=== PATIENT | female | born 1960 | race Caucasian/White ===

== ENCOUNTER 2017-09-22 22:04 | Emergency (ER) | payer OTHER ==
[2017-09-22] MEDS ORDERED: ONDANSETRON 4 MG/2 ML VIAL IVP STA (23:05)
[2017-09-22] MEDS ORDERED: SODIUM CHLORIDE 0.9% 1,000 ML IV ONE (23:05)
[2017-09-22] MEDS ORDERED: DEXAMETHASONE 10 MG/ML VIAL IVP STA (23:06)
[2017-09-22] MEDS ORDERED: HYDROmorphone 0.5 MG/0.5 ML SYRINGE IVP STA (23:06)
--- NOTE | 2017-09-22 23:09 | ED Physician Documentation ---
History of Present Illness - Stated complaint Stated Complaint: HEAD PAIN - Chief complaint Chief Complaint: General - History obtained from History obtained from: Patient - History of Present Illness Timing: Yesterday - Additonal information Additional information: 57-year-old female with a history of Nicole-Danlos syndrome and cranial nerve entrapment has stopped her Zyrtec 2 days ago and she is now begun to develop facial pain. She has stopped the Zyrtec as she is getting ready to go see an seed collector at the [facility]. She feels the increase in her pain syndrome is related to stopping her Zyrtec.She has also noted some cramping in her legs. Review of Systems Constitutional: denies: Fever Eyes: denies: Decreased vision Ears: denies: Ear pain Nose: reports: Sinus pressure / pain. denies: Congestion Throat: denies: Sore throat Cardiac: denies: Chest pain / pressure, Palpitations Respiratory: denies: Dyspnea, Cough GI: reports: Nausea. 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, Breast reduction - Present Medications Home Medications: Ambulatory Orders Medication Instructions Recorded Confirmed Estradiol [Vivelle-Dot] 1 each TD DAILY 10/28/13 09/19/16 Sertraline HCl [Zoloft] 100 mg PO DAILY 10/28/13 09/19/16 Zolpidem [Ambien] 5 mg PO HS 10/28/13 09/19/16 Metoprolol Succinate [Toprol Xl] 50 mg PO DAILY 12/12/13 09/19/16 Alprazolam [Alprazolam Odt] 1 mg PO DAILY 10/19/14 10/19/14 Ondansetron Odt [Zofran] 4 mg TL Q6H PRN #10 tablet 10/19/14 09/19/16 ALPRAZolam [Xanax] 2 mg ORAL DAILY 09/19/16 09/19/16 Knee Scooter 1 unit TD ONCE #1 09/19/16 - Allergies Allergies/Adverse Reactions: Allergies Allergy/AdvReac Type Severity Reaction Status Date / Time adhesive Allergy Intermediate Rash Verified 09/19/16 18:05 lorazepam [From Ativan] Allergy jittery Verified 09/19/16 18:05 aripiprazole [From Abilify] AdvReac Severe Anxiety Verified 09/19/16 18:05 cimetidine [From Tagamet] AdvReac Severe Anxiety Verified 09/19/16 18:05 cimetidine HCl * AdvReac Severe Anxiety Verified 09/19/16 18:05 [From Tagamet] diphenhydramine HCl * AdvReac Severe Anxiety Verified 09/19/16 18:05 [From Benadryl] trazodone AdvReac Severe Migraine Verified 09/19/16 18:05 Headache morphine sulfate * AdvReac Nausea Verified 09/19/16 18:05 [From Mari] artificial sweetener AdvReac Intermediate mouth sores Uncoded 09/19/16 18:05 - Social History Does the pt smoke?: No Smoking Status: Never smoker Does the pt drink ETOH?: No Does the pt have substance abuse?: No - POLST Patient has POLST: No PD ED PE NORMAL - Vitals Vital signs reviewed: Yes (Tachycardic and hypertensive) - General General: No acute distress, Well developed/nourished - HEENT HEENT: Atraumatic, PERRL, EOMI, Ears normal, Other (dry mucous membranes ) - Neck Neck: Supple, no meningeal sign, No bony TTP - Cardiac Cardiac: No murmur, Other (tachy) - Respiratory Respiratory: No respiratory distress, Clear bilaterally - Abdomen Abdomen: Soft, Non tender - Derm Derm: Normal color, Warm and dry, No rash - Extremities Extremities: No deformity, No edema - Neuro Neuro: No motor deficit, No sensory deficit - Psych Psych: Normal mood, Normal affect Results - Vitals Vitals: Vital Signs - 24 hr 09/22/17 09/23/17 22:09 00:15 Temperature 36 C L 36.8 C Heart Rate 116 H 81 Respiratory 17 16 Rate Blood Pressure 156/96 H 125/77 O2 Saturation 97 99 Oxygen O2 Source [] Room air O2 Source [] Room air O2 Source Room air - Labs Labs: Laboratory Tests 09/22/17 09/22/17 23:30 23:30 WBC 13.5 H RBC 4.22 Hgb 13.4 Hct 38.0 MCV 90.2 MCH 31.9 H MCHC 35.3 RDW 12.6 Plt Count 252 MPV 9.5 Neut # Not Reportable Lymph # Not Reportable Lyman # Not Reportable Eos # Not Reportable Baso # Not Reportable Absolute Nucleated RBC Not Reportable Total Counted 100 Band Neuts % (Manual) 0 Nucleated RBC % Not Reportable Neutrophils # (Manual) 6.5 Lymphocytes # (Manual) 5.7 H Monocytes # (Manual) 1.1 H Eosinophils # (Manual) 0.3 Differential Comment MANUAL DIFFERENTIAL WBC Morphology 1+ SMUDGE CELLS Platelet Estimate NORMAL (130-450,000) RBC Morph Micro Appear NORMAL APPEARANCE Sodium 137 Potassium 3.5 Chloride 102 Carbon Dioxide 24 Anion Gap 11.0 BUN 16 Creatinine 0.8 Estimated GFR (MDRD) 74 L Glucose 101 H Calcium 9.3 Total Bilirubin 0.2 AST 27 ALT 20 Alkaline Phosphatase 62 Total Protein 7.0 Albumin 3.7 Globulin 3.3 Albumin/Globulin Ratio 1.1 Lipase 29 Procedures - IVC sono (time) 2229 Bedside IVC sono: IVC measures (cm) (1.24), IVC collapsed c insp (cm) (complete) PD MEDICAL DECISION MAKING - ED course Complexity details: reviewed old records, reviewed results, re-evaluated patient , considered differential, d/w patient ED course: 57-year-old female with a history of Nicole-Danlos syndrome and cranial entrapment has developed increased symptoms this evening. These are giving her more pain and she is comfortable with and she does not have pain medication. She is not had pain medication for about 2 weeks. She is preparing to go see a seed collector at the [facility] and they have taken her off of her Zyrtec. She feels that the symptoms that she is having are related to discontinuation of this medication. I do not see evidence of acute infection associated with the sinuses or the ears. She does appear mildly dehydrated and I have offered palliative treatment for her. To include the use of dexamethasone as a single dose as this should substitute for the Zyrtec and not interfere with the scratch testing. Departure - Departure Disposition: 01 Home, Self Care Clinical Impression: Cranial nerve dysfunction, Dehydration Condition: Stable Instructions: ED Dehydration Follow-Up: Your, doctor as planned [Other]
[2017-09-22] MEDS ORDERED: ONDANSETRON 4 MG/2 ML VIAL ONE (23:34)
[2017-09-22] MEDS ORDERED: HYDROmorphone 1 MG/ML SYRINGE ONE (23:34)
[2017-09-22] MEDS ORDERED: DEXAMETHASONE 10 MG/ML VIAL ONE (23:35)
[2017-09-22] MEDS ORDERED: DEXTROSE 5% 1,000 ML IV SCH (23:45)
[2017-09-22 23:47] LABS: HGB - HEMOGLOBIN 13.4 g/dL (12.0-16.0); MEAN CORPUSCULAR HEMOGLOBIN 31.9 pg (27.0-31.0); MEAN CORPUSCULAR HGB CONC 35.3 g/dL (32.0-36.0); MEAN CORPUSCULAR VOLUME 90.2 fL (81.0-99.0); MEAN PLATELET VOLUME 9.5 fL (7.9-10.8); RED BLOOD COUNT 4.22 10^6/uL (4.20-5.40); RED CELL DISTRIBUTION WIDTH 12.6 % (12.0-15.0); UNCORRECTED WHITE BLOOD COUNT 13.5 x10^3/uL; WHITE BLOOD COUNT 13.5 x10^3/uL (4.8-10.8)
[2017-09-22 23:50] LABS: BAND NEUTROPHILS % (MANUAL) 0 %
[2017-09-22 23:57] LABS: ALBUMIN/GLOBULIN RATIO 1.1 (1.0-2.2); BILIRUBIN,TOTAL 0.2 mg/dL (0.2-1.0); CALCIUM 9.3 mg/dL (8.5-10.3); CREATININE 0.8 mg/dL (0.4-1.0); POTASSIUM 3.5 mmol/L (3.5-5.0)
[2017-09-23 00:07] LABS: EOSINOPHILS % (MANUAL) 2 %; LYMPHOCYTES % (MANUAL) 42 %; NEUTROPHILS % (MANUAL) 48 %; NP AUTO DIFFERENTIAL? YES; NP MAN DIFFERENTIAL? NO; PLATELET ESTIMATE, MANUAL NORMAL (130-450,000) (NORMAL); TOTAL CELLS COUNTED 100; WBC MORPHOLOGY (MULTIPLE) 1+ SMUDGE CELLS (NORMAL)
[2017-09-23 00:19] VITALS: BP 125/77
[2017-09-23] MEDS ORDERED: HYDROcod/ACET 5/325 Prepack 6 PO ONE ×2 (01:33→02:00)
== END 2017-09-23 01:13 | disposition home or self-care (01) ==
LOC: ED 22:04
DX: G58.8 Other specified mononeuropathies (principal); E86.0 Dehydration; Q79.6 Ehlers-Danlos syndromes; Z87.442 Personal history of urinary calculi
CPT/HCPCS: 36415; 80053; 83690; 85025; 99283; 99284; J1170

== ENCOUNTER 2017-10-13 17:27 | Emergency (ER) | payer OTHER ==
[2017-10-13] MEDS ORDERED: ALPRAZolam 0.25 MG TABLET PO STA (17:54)
--- NOTE | 2017-10-13 17:56 | ED Physician Documentation ---
History of Present Illness - Stated complaint Stated Complaint: RT SIDE FACIAL PX - Chief complaint Chief Complaint: General - History obtained from History obtained from: Patient - History of Present Illness Timing: Other (She presents driven by family but alone in the room. 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 She reportedly has a history of glossopharyngeal nerve entrapment and Nicole Danlos syndrome and has chronic pain. From what I am able to ascertain as she recently switched doctors because she was kicked out of the practice for being routinely late to her appointments. 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, 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, Breast reduction - Present Medications Home Medications: Ambulatory Orders Medication Instructions Recorded Confirmed Estradiol [Vivelle-Dot] 1 each TD DAILY 10/28/13 09/19/16 Sertraline HCl [Zoloft] 100 mg PO DAILY 10/28/13 10/13/17 Zolpidem [Ambien] 5 mg PO HS 10/28/13 10/13/17 Metoprolol Succinate [Toprol Xl] 50 mg PO DAILY 12/12/13 10/13/17 Alprazolam [Alprazolam Odt] 1 mg PO DAILY 10/19/14 10/13/17 Ondansetron Odt [Zofran] 4 mg TL Q6H PRN #10 tablet 10/19/14 10/13/17 ALPRAZolam [Xanax] 2 mg ORAL DAILY 09/19/16 10/13/17 Alprazolam [Alprazolam Xr] 1 mg PO QPM #10 tab.er.24h 10/13/17 Alprazolam [Alprazolam Xr] 2 mg PO DAILY #10 tab.er.24h 10/13/17 - Allergies Allergies/Adverse Reactions: Allergies Allergy/AdvReac Type Severity Reaction Status Date / Time adhesive Allergy Intermediate Rash Verified 10/13/17 18:32 lorazepam [From Ativan] Allergy jittery Verified 10/13/17 18:32 aripiprazole [From Abilify] AdvReac Severe Anxiety Verified 10/13/17 18:32 cimetidine [From Tagamet] AdvReac Severe Anxiety Verified 10/13/17 18:32 cimetidine HCl * AdvReac Severe Anxiety Verified 10/13/17 18:32 [From Tagamet] diphenhydramine HCl * AdvReac Severe Anxiety Verified 10/13/17 18:32 [From Benadryl] trazodone AdvReac Severe Migraine Verified 10/13/17 18:32 Headache morphine sulfate * AdvReac Nausea Verified 10/13/17 18:32 [From Mari] artificial sweetener AdvReac Intermediate mouth sores Uncoded 10/13/17 18:32 - Social History Does the pt smoke?: No Smoking Status: Never smoker Does the pt drink ETOH?: No Does the pt have substance abuse?: No - POLST Patient has POLST: No PD ED PE NORMAL - Vitals Vital signs reviewed: Yes - General General: Other (She is a somewhat aggressive and uncooperative historian with tangential history. She has dilated pupils and she is shaky and sweaty.) - HEENT HEENT: PERRL, EOMI - Neck Neck: Supple, no meningeal sign, No bony TTP - Cardiac Cardiac: RRR, No murmur - Respiratory Respiratory: No respiratory distress, Clear bilaterally - Abdomen Abdomen: Non tender - Neuro Neuro: Alert and oriented X 3, Normal speech Eye Opening: Spontaneous Motor: Obeys Commands Verbal: Oriented GCS Score: 15 Results - Vitals Vitals: Vital Signs - 24 hr 10/13/17 10/13/17 10/13/17 17:34 18:04 18:39 Temperature 36.5 C 36.1 C L Heart Rate 88 86 89 Respiratory 22 16 20 Rate Blood Pressure 198/94 H 171/100 H 140/87 H O2 Saturation 100 99 96 Oxygen O2 Source [] Room air O2 Source [] Room air O2 Source Nasal cannula - EKG (time done) 1742 Rate: Rate (enter#) (101) Rhythm: Sinus tachycardia [place]: LAD QRS: Low voltage Ischemia: Normal ST segments PD MEDICAL DECISION MAKING - ED course ED course: 57-year-old woman appears to be undergoing benzodiazepine withdrawal because she abruptly ceased taking alprazolam. After the administration of a milligram of alprazolam here she was much more of a normal historian and feeling much better. Advised to follow-up with her physician for further refills or a taper process. Departure - Departure Disposition: 01 Home, Self Care Clinical Impression: Benzodiazepine withdrawal Qualifiers: Complication of substance-induced condition: uncomplicated Qualified Code(s): F13.230 - Sedative, hypnotic or anxiolytic dependence with withdrawal, uncomplicated Condition: Good Record reviewed to determine appropriate education?: Yes Instructions: ED Withdrawal Benzodiazepine Prescriptions: Alprazolam [Alprazolam Xr] 1 mg PO QPM #10 tab.er.24h Alprazolam [Alprazolam Xr] 2 mg PO DAILY #10 tab.er.24h Comments: Follow-up with your doctor, discuss either continuation of your alprazolam or a tapering process as opposed to stopping it suddenly. Your blood pressure was elevated today on check into the emergency department. This does not mean that you have hypertension, it is a common phenomenon to come to the emergency department and have elevated blood pressure. I recommend that you see your primary care physician within the week to have it rechecked when you are feeling better. Do not drink or drive while taking narcotic pain medication. Note that many narcotic pain relievers also contain Tylenol/acetaminophen. Please ensure that your total dose of acetaminophen from all sources does not exceed 3 g (3000 mg) per day. You may get constipated while on this medication. Take a stool softener such as Colace twice a day while you are on it. Also add an [id number] laxative such as senna or MiraLAX on any day that you do not have a bowel movement. If you received a narcotic pain medication or sedative while in the emergency department, do not drive for the next 24 hours.
[2017-10-13] MEDS ORDERED: ALPRAZolam 0.25 MG TABLET PO ONE (18:03)
[2017-10-13 18:40] VITALS: BP 140/87
[2017-10-13] MEDS ORDERED: diphenhydrAMINE 25 MG CAPSULE PO ONE (20:20)
== END 2017-10-13 19:17 | disposition home or self-care (01) ==
LOC: ED 17:27
DX: F13.230 Sedative, hypnotic or anxiolytic dependence with withdrawal, uncomplicated (principal); Q79.6 Ehlers-Danlos syndromes; G89.29 Other chronic pain; R03.0 Elevated blood-pressure reading, without diagnosis of hypertension
CPT/HCPCS: 93005; 99283; A9270

== ENCOUNTER 2018-06-16 15:32 | Outpatient (CLI) | payer OTHER ==
--- NOTE | 2018-06-16 16:06 | XRAY Report ---
Procedure Date: 06/16/2018 Accession Number: [id number] / [id number] Procedure: XR - Foot 3 View LT CPT Code: FULL RESULT: EXAM: Foot 3 View LT DATE: 06/16/2018 3:58 PM CLINICAL HISTORY: PAIN L FOOT COMPARISON: None. TECHNIQUE: 3 views. FINDINGS: Bones: Normal. No fractures or bone lesions. Joints: Normal. No subluxations. Soft Tissues: Normal. No soft tissue swelling. IMPRESSION: Normal foot radiography. [facility]
== END 2018-06-16 15:33 | disposition home or self-care (01) ==
LOC: DI 15:32
PROVIDERS: ATTEND Internal Medicine
DX: M79.672 Pain in left foot (principal)

== ENCOUNTER 2019-03-21 17:09 | Emergency (ER) | payer OTHER ==
[2019-03-21 17:18] VITALS: BP 149/86
[2019-03-21] MEDS ORDERED: HYDROcod/ACETAM 5/325 MG TABLET PO STA (17:37)
[2019-03-21] MEDS ORDERED: AMOX/CLAV 875 MG/125 MG TABLET PO STA (17:37)
--- NOTE | 2019-03-21 17:40 | ED Physician Documentation ---
PD HPI HEENT - Stated complaint Stated Complaint: MOUTH PX/CONGESTION - Chief complaint Chief Complaint: Heent - History obtained from History obtained from: Patient - History of Present Illness Timing - onset: Other (She had 2 molars pulled from the left mandible about 5 days ago and has had increased pain over the last couple of days. With mild facial swelling. No fevers. She also complains of nasal congestion and a hoarse voice. No cough. 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, 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, Breast reduction - Present Medications Home Medications: Ambulatory Orders Medication Instructions Recorded Confirmed Estradiol [Vivelle-Dot] 1 each TD DAILY 10/28/13 09/19/16 Sertraline HCl [Zoloft] 100 mg PO DAILY 10/28/13 10/13/17 Zolpidem [Ambien] 5 mg PO HS 10/28/13 10/13/17 Metoprolol Succinate [Toprol Xl] 50 mg PO DAILY 12/12/13 10/13/17 Alprazolam [Alprazolam Odt] 1 mg PO DAILY 10/19/14 10/13/17 Ondansetron Odt [Zofran] 4 mg TL Q6H PRN #10 tablet 10/19/14 10/13/17 ALPRAZolam [Xanax] 2 mg ORAL DAILY 09/19/16 10/13/17 Alprazolam [Alprazolam Xr] 1 mg PO QPM #10 tab.er.24h 10/13/17 Alprazolam [Alprazolam Xr] 2 mg PO DAILY #10 tab.er.24h 10/13/17 Amox/Clav 875/125 [Augmentin] 1 each PO Q12H #20 tablet 03/21/19 Hydrocodone/Acetaminophen 1 - 2 each PO Q6H PRN #14 tablet 03/21/19 [Hydrocodon-Acetaminophen 5-325] - Allergies Allergies/Adverse Reactions: Allergies Allergy/AdvReac Type Severity Reaction Status Date / Time adhesive Allergy Intermediate Rash Verified 03/21/19 17:18 lorazepam [From Ativan] Allergy jittery Verified 03/21/19 17:18 aripiprazole [From Abilify] AdvReac Severe Anxiety Verified 03/21/19 17:18 cimetidine [From Tagamet] AdvReac Severe Anxiety Verified 03/21/19 17:18 cimetidine HCl * AdvReac Severe Anxiety Verified 03/21/19 17:18 [From Tagamet] diphenhydramine HCl * AdvReac Severe Anxiety Verified 03/21/19 17:18 [From Benadryl] trazodone AdvReac Severe Migraine Verified 03/21/19 17:18 Headache morphine sulfate * AdvReac Nausea Verified 03/21/19 17:18 [From Mari] artificial sweetener AdvReac Intermediate mouth sores Uncoded 10/13/17 18:32 - Social History Does the pt smoke?: No Smoking Status: Never smoker Does the pt drink ETOH?: No Does the pt have substance abuse?: No - Immunizations Immunizations are current?: Yes - POLST Patient has POLST: No PD ED PE NORMAL - Vitals Vital signs reviewed: Yes - General General: Alert and oriented X 3, No acute distress - HEENT HEENT: Pharynx benign, Other (She has dry socket on the left mandible, very mild overlying facial swelling. No sublingual edema or trismus.) - Neck Neck: Supple, no meningeal sign, No bony TTP - Neuro Neuro: Alert and oriented X 3, Normal speech Results - Vitals Vitals: Vital Signs - 24 hr 03/21/19 17:14 Temperature 36.5 C Heart Rate 102 H Respiratory 20 Rate Blood Pressure 149/86 H O2 Saturation 98 Oxygen O2 Source [With Activity] Room air O2 Source [Without Activity] Room air O2 Source Room air Departure - Departure Disposition: 01 Home, Self Care Clinical Impression: Dry socket Condition: Good Record reviewed to determine appropriate education?: Yes Instructions: ED Socket Dry Prescriptions: Amox/Clav 875/125 [Augmentin] 1 each PO Q12H #20 tablet Hydrocodone/Acetaminophen [Hydrocodon-Acetaminophen 5-325] 1 - 2 each PO Q6H PRN #14 tablet PRN Reason: pain Comments: Follow-up with a dentist locally tomorrow for further evaluation and treatment, also your primary care for any other issues.
== END 2019-03-21 17:53 | disposition home or self-care (01) ==
LOC: ED 17:09
DX: M27.3 Alveolitis of jaws (principal)
CPT/HCPCS: 99283; A9270

== ENCOUNTER 2019-05-06 22:29 | Emergency (ER) | payer OTHER ==
--- NOTE | 2019-05-06 23:01 | XRAY Report ---
Reason: Elevated BP, Dizziness Procedure Date: 05/06/2019 Accession Number: [id number] / [id number] Procedure: XR - Chest 1 View X-Ray CPT Code: 49573 FULL RESULT: EXAM: CHEST RADIOGRAPHY EXAM DATE: 05/06/2019 10:55 PM. CLINICAL HISTORY: Elevated BP, Dizziness. COMPARISON: CHEST 2 VIEW PA/LAT 02/03/2016 7:44 PM. TECHNIQUE: 1 view. FINDINGS: Lungs/Pleura: No focal opacities evident. No pleural effusion. No pneumothorax. Mediastinum: Within exam limitations, the cardiomediastinal contour is normal. Other: None. IMPRESSION: Normal single view chest. RAD[facility]
[2019-05-06 23:03] LABS: BASOPHILS # (AUTO) 0.1 10^3/uL (0.0-0.1); BASOPHILS % (AUTO) 0.9 %; EOSINOPHILS # (AUTO) 0.4 10^3/uL (0.0-0.7); EOSINOPHILS % (AUTO) 2.7 %; HGB - HEMOGLOBIN 13.9 g/dL (12.0-16.0); LYMPHOCYTES # (AUTO) 4.9 10^3/uL (1.5-3.5); MEAN CORPUSCULAR HEMOGLOBIN 29.6 pg (27.0-31.0); MEAN CORPUSCULAR HGB CONC 33.7 g/dL (32.0-36.0); MEAN PLATELET VOLUME 10.5 fL (7.9-10.8); MONOCYTES % (AUTO) 7.1 %; NEUTROPHILS % (AUTO) 55.3 %; PLT - PLATELET COUNT 320 10^3/uL (130-450); RED BLOOD COUNT 4.71 10^6/uL (4.20-5.40); RED CELL DISTRIBUTION WIDTH 14.4 % (12.0-15.0); WHITE BLOOD COUNT 14.4 x10^3/uL (4.8-10.8)
[2019-05-06 23:18] LABS: ALBUMIN 3.9 g/dL (3.2-5.5); ALBUMIN/GLOBULIN RATIO 0.9 (1.0-2.2); CALCIUM 9.9 mg/dL (8.5-10.3); CREATININE 0.9 mg/dL (0.4-1.0); TOTAL PROTEIN 8.2 g/dL (6.7-8.2)
--- NOTE | 2019-05-07 00:55 | ED Physician Documentation ---
History of Present Illness - Stated complaint Stated Complaint: HIGH BP/DIZZY - Chief complaint Chief Complaint: Cardiac - History obtained from History obtained from: Patient - History of Present Illness Timing: Other (multiple c/o over various time frames) Pain level now: 5 (headache) - Additonal information Additional information: chief complaint is high blood pressure x 2 days with generalized headache. she has had hair loss and is on minocycline for this, says she thinks this is the wrong medication and she wonders if this is contributing to her high blood pressure. she thinks she has a fungal infection causing hair loss. she had recent dental extraction and also is concerned this might be causing her high blood pressure as well as right-sided facial pain. she feels her lymph nodes (a single lymph node) is swollen right side if neck, concerned this further indicates some sort of infection. she says she is having headache uncontrolled by OTC medication (although she days she was told she cannot take NSAIDs), and since this is [place], no one wants to prescribe anything (per patient). Review of Systems Constitutional: reports: Reviewed and negative Eyes: reports: Reviewed and negative Ears: reports: Reviewed and negative Throat: reports: Oral lesions / sores (pain near recent dental extraction) Cardiac: reports: Reviewed and negative Respiratory: reports: Reviewed and negative GI: reports: Reviewed and negative Neurologic: reports: Headache. 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: Hysterectomy, Oophrectomy, Breast reduction - Present Medications Home Medications: Ambulatory Orders Medication Instructions Recorded Confirmed Estradiol [Vivelle-Dot] 1 each TD DAILY 10/28/13 05/06/19 Zolpidem [Ambien] 5 mg PO HS 10/28/13 05/06/19 Metoprolol Succinate [Toprol Xl] 50 mg PO DAILY 12/12/13 05/06/19 Ondansetron Odt [Zofran] 4 mg TL Q6H PRN #10 tablet 10/19/14 05/06/19 Alprazolam [Alprazolam Xr] 2 mg PO DAILY #10 tab.er.24h 10/13/17 05/06/19 Dextroamphetamine/Amphetamine 20 mg PO BID 05/06/19 05/06/19 [Adderall 20 mg Tablet] Esomeprazole Magnesium [Nexium] 20 mg PO 05/06/19 Fluoxetine HCl [Prozac] 20 mg PO 05/06/19 05/06/19 Irbesartan 75 mg PO DAILY 05/06/19 05/06/19 Ketotifen Fumarate [Zaditor] 5 ml OP DAILY 05/06/19 05/06/19 Lactobacillus Acidophilus 1 each PO DAILY 05/06/19 05/06/19 [Probiotic Acidophilus] Loratadine [Claritin] 10 mg PO DAILY 05/06/19 05/06/19 Minocycline HCl 50 mg PO DAILY 05/06/19 05/06/19 hydrALAZINE [Apresoline] 10 mg PO DAILY 05/06/19 05/06/19 - Allergies Allergies/Adverse Reactions: Allergies Allergy/AdvReac Type Severity Reaction Status Date / Time adhesive Allergy Intermediate Rash Verified 05/06/19 22:37 lorazepam [From Ativan] Allergy jittery Verified 05/06/19 22:37 aripiprazole [From Abilify] AdvReac Severe Anxiety Verified 05/06/19 22:37 cimetidine [From Tagamet] AdvReac Severe Anxiety Verified 05/06/19 22:37 cimetidine HCl * AdvReac Severe Anxiety Verified 05/06/19 22:37 [From Tagamet] diphenhydramine HCl * AdvReac Severe Anxiety Verified 05/06/19 22:37 [From Benadryl] trazodone AdvReac Severe Migraine Verified 05/06/19 22:37 Headache morphine sulfate * AdvReac Nausea Verified 05/06/19 22:37 [From Mari] artificial sweetener AdvReac Intermediate mouth sores Uncoded 05/06/19 22:37 - Social History Does the pt smoke?: No Smoking Status: Never smoker Does the pt drink ETOH?: No Does the pt have substance abuse?: No - Immunizations Immunizations are current?: Yes - POLST Patient has POLST: No PD ED PE NORMAL - Vitals Vital signs reviewed: Yes - General General: Alert and oriented X 3, No acute distress, Well developed/nourished - HEENT HEENT: PERRL, EOMI, Other (alopecia; no facial swelling or erythema. right maxillary tooth extraction site is c/d/I without swelling, erythema, fluctuance, or tenderness) - Neck Neck: Supple, no meningeal sign, No adenopathy (I do not appreciate any lymphadenopathy; patient repeatedly guides my hand to a solitary node which is right posterior chain and is small, soft, nontender (normal sized-lymph node)) - Cardiac Cardiac: RRR, No murmur, No gallop, No rub - Respiratory Respiratory: No respiratory distress, Clear bilaterally - Derm Derm: Normal color, Warm and dry - Neuro Neuro: Alert and oriented X 3, art framing manager 2-12 intact, No motor deficit, No sensory deficit, Normal speech Eye Opening: Spontaneous Motor: Obeys Commands Verbal: Oriented GCS Score: 15 Results - Vitals Vitals: Oxygen O2 Source [] Room air O2 Source [] Room air O2 Source Room air - EKG (time done) No standard instances Rate: Rate (enter#) (114), Tachy Rhythm: NSR Dewart: LAD Intervals: Normal NE QRS: LVH Ischemia: Normal ST segments - Labs Labs: Laboratory Tests 05/06/19 05/06/19 05/06/19 22:55 22:55 22:55 WBC 14.4 H RBC 4.71 Hgb 13.9 Hct 41.4 MCV 88.0 MCH 29.6 MCHC 33.7 RDW 14.4 Plt Count 320 MPV 10.5 Neut # (Auto) 8.0 H Lymph # (Auto) 4.[address] [place] # (Auto) 1.0 Eos # (Auto) 0.4 Baso # (Auto) 0.1 Absolute Nucleated RBC 0.02 Nucleated RBC % 0.1 Sodium 138 Potassium 3.4 L Chloride 104 Carbon Dioxide 19 L Anion Gap 15.0 H BUN 14 Creatinine 0.9 Estimated GFR (MDRD) 64 L Glucose 167 H Calcium 9.9 Total Bilirubin 1.0 AST 53 H ALT 40 Alkaline Phosphatase 67 Troponin I < 0.04 Total Protein 8.2 Albumin 3.9 Globulin 4.3 H Albumin/Globulin Ratio 0.9 L Lipase 29 - Rads (name of study) chest xray Radiology: Prelim report reviewed, See rad report PD MEDICAL DECISION MAKING - ED course Complexity details: reviewed old records, reviewed results, re-evaluated patient, considered differential, d/w patient ED course: patient is scattered in her HPI, requiring repeated refocussing on what her chief complaint is that I can try to address emergently. I explained to her that many of the issues she raises are of a subacute and/or chronic nature and would best be addressed by her PMD and/or specialists (which she already is seeing). As for her blood pressure, I discussed with her that her blood pressure is indeed elevated, but not to an extent that would mandate emergent control. I note her tachycardia improved during ED stay without intervention, and she says she has some sort of autonomic dysreflexia or dysfunction that typically causes both her pulse and blood pressure to fluctuate frequently during the day, including blood pressure dropping low; I explained that this is even more reason to not alter her current medications (augmenting her antihypertensive medication regimen could lead to hypotension when she is calm at home). I instructed her to keep a log of twice-daily blood pressure readings and follow up with her doctor. given 5mg oxycodone in ED for generalized headache (which was the same despite improving blood pressure readings during stay) Departure - Departure Disposition: 01 Home, Self Care Clinical Impression: High blood pressure Qualifiers: Hypertension type: unspecified Qualified Code(s): I10 - Essential (primary) hypertension Condition: Good Instructions: ED HTN Established, ED Hypertension Conf Out Of Control Follow-Up: Mary Lara MD [Primary Care Provider] - Within 3 Days Discharge Date/Time: 05/07/19 01:52
[2019-05-07] MEDS ORDERED: oxyCODONE 5 MG TABLET PO STA (01:26)
[2019-05-07 01:27] VITALS: BP 148/97
== END 2019-05-07 01:52 | disposition home or self-care (01) ==
LOC: ED 22:29
DX: I10 Essential (primary) hypertension (principal); R51 Headache; R00.0 Tachycardia, unspecified; I51.7 Cardiomegaly; L65.9 Nonscarring hair loss, unspecified
CPT/HCPCS: 36415; 71045; 80053; 83690; 84484; 85025; 93005; 99283; A9270

== ENCOUNTER 2019-05-20 06:17 | Inpatient (IN) | payer OTHER ==
[2019-05-20] MEDS ORDERED: SODIUM CHLORIDE 0.9% 1,000 ML IV ONE (07:13)
[2019-05-20] MEDS ORDERED: KETOROLAC 30 MG/ML VIAL IVP STA (07:13)
[2019-05-20] MEDS ORDERED: ONDANSETRON 4 MG/2 ML VIAL IVP STA (07:13)
[2019-05-20 07:28] LABS: BASOPHILS # (AUTO) 0.1 10^3/uL (0.0-0.1); BASOPHILS % (AUTO) 0.5 %; EOSINOPHILS # (AUTO) 0.2 10^3/uL (0.0-0.7); EOSINOPHILS % (AUTO) 1.1 %; HGB - HEMOGLOBIN 12.8 g/dL (12.0-16.0); LYMPHOCYTES % (AUTO) 13.2 %; MEAN CORPUSCULAR HEMOGLOBIN 30.1 pg (27.0-31.0); MEAN CORPUSCULAR HGB CONC 33.2 g/dL (32.0-36.0); MEAN CORPUSCULAR VOLUME 90.6 fL (81.0-99.0); MEAN PLATELET VOLUME 11.6 fL (7.9-10.8); MONOCYTES # (AUTO) 0.8 10^3/uL (0.0-1.0); MONOCYTES % (AUTO) 4.9 %; NEUTROPHILS # (AUTO) 12.2 10^3/uL (1.5-6.6); NEUTROPHILS % (AUTO) 79.5 %; PLT - PLATELET COUNT 240 10^3/uL (130-450); RED BLOOD COUNT 4.25 10^6/uL (4.20-5.40); WHITE BLOOD COUNT 15.4 x10^3/uL (4.8-10.8)
[2019-05-20 07:46] LABS: ALBUMIN 3.9 g/dL (3.2-5.5); CALCIUM 9.4 mg/dL (8.5-10.3); CREATININE 0.8 mg/dL (0.4-1.0); TOTAL PROTEIN 7.9 g/dL (6.7-8.2)
--- NOTE | 2019-05-20 07:58 | ED Physician Documentation ---
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 She was unable to eat anything yesterday at all and she is come to the emergency department today with persistent pain and nausea and vomiting. Review of Systems Constitutional: denies: Fever Eyes: denies: Decreased vision Ears: denies: Ear pain Nose: denies: Congestion Throat: denies: Sore throat Cardiac: denies: Chest pain / pressure Respiratory: denies: Dyspnea, Cough GI: reports: Abdominal Pain, Nausea, Vomiting. 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: Hysterectomy, Oophrectomy, Breast reduction - Present Medications Home Medications: Ambulatory Orders Medication Instructions Recorded Confirmed Zolpidem [Ambien] 10 mg PO HS 10/28/13 05/20/19 Alprazolam [Alprazolam Xr] 2 mg PO DAILY #10 tab.er.24h 10/13/17 05/20/19 Irbesartan 75 mg PO DAILY 05/06/19 05/20/19 Ketotifen Fumarate [Zaditor] 5 ml OP DAILY 05/06/19 05/06/19 Minocycline HCl 100 mg PO BID 05/06/19 05/20/19 Alprazolam [Alprazolam Xr] 1 mg PO DAILY 05/20/19 05/20/19 Dextroamphetamine/Amphetamine 20 mg PO BID 05/20/19 05/20/19 [Dextroamp-Amphet ER 20 mg Cap] Estradiol [Vivelle-Dot] 1 patch TD MOTH 05/20/19 05/20/19 Pantoprazole [Protonix] 40 mg PO DAILY 05/20/19 05/20/19 Sertraline HCl [Zoloft] 100 mg PO DAILY 05/20/19 05/20/19 Thyroid,Pork [Investment Underwriter Thyroid] 15 mg PO DAILY 05/20/19 05/20/19 hydrOXYzine HCl [Hydroxyzine HCl] 25 mg PO BID PRN 05/20/19 05/20/19 - Allergies Allergies/Adverse Reactions: Allergies Allergy/AdvReac Type Severity Reaction Status Date / Time adhesive Allergy Intermediate Rash Verified 05/20/19 06:28 lorazepam [From Ativan] Allergy jittery Verified 05/20/19 06:28 aripiprazole [From Abilify] AdvReac Severe Anxiety Verified 05/20/19 06:28 cimetidine [From Tagamet] AdvReac Severe Anxiety Verified 05/20/19 06:28 cimetidine HCl * AdvReac Severe Anxiety Verified 05/20/19 06:28 [From Tagamet] diphenhydramine HCl * AdvReac Severe Anxiety Verified 05/20/19 06:28 [From Benadryl] trazodone AdvReac Severe Migraine Verified 05/20/19 06:28 Headache morphine sulfate * AdvReac Nausea Verified 05/20/19 06:28 [From Mari] artificial sweetener AdvReac Intermediate mouth sores Uncoded 05/06/19 22:37 - Social History Does the pt smoke?: No Smoking Status: Never smoker Does the pt drink ETOH?: No Does the pt have substance abuse?: No - Immunizations Immunizations are current?: Yes - POLST Patient has POLST: No PD ED PE NORMAL - Vitals Vital signs reviewed: Yes (hypertensive ) - General General: Alert and oriented X 3, Well developed/nourished, Other (overweight female laying in the position clutching the abdomen) - HEENT HEENT: Atraumatic, PERRL, EOMI - Neck Neck: Supple, no meningeal sign, No bony TTP - Cardiac Cardiac: RRR, No murmur - Respiratory Respiratory: No respiratory distress, Clear bilaterally - Abdomen Abdomen: Soft, Other (The abdomen in distended and generally tender without gaurding. There is more RUQ tenderness than left. ) - Back Back: No CVA TTP - Derm Derm: Normal color, Warm and dry, No rash - Extremities Extremities: No deformity, No edema - Neuro Neuro: Alert and oriented X 3, web site manager 2-12 intact, No motor deficit, No sensory deficit, Normal speech Eye Opening: Spontaneous Motor: Obeys Commands Verbal: Oriented GCS Score: 15 - Psych Psych: Normal mood, Normal affect Results - Vitals Vitals: Vital Signs - 24 hr 05/20/19 05/20/19 05/20/19 06:25 10:21 13:10 Temperature 36.4 C L Heart Rate 65 79 63 Respiratory 18 18 16 Rate Blood Pressure 147/70 H 134/78 H 168/78 H O2 Saturation 97 97 95 Oxygen O2 Source [With Activity] Room air O2 Source [Without Activity] Room air O2 Source Room air - Labs Labs: Laboratory Tests 05/20/19 05/20/19 05/20/19 07:23 07:23 07:23 WBC 15.4 H RBC 4.25 Hgb 12.8 Hct 38.5 MCV 90.6 MCH 30.1 MCHC 33.2 RDW 14.0 Plt Count 240 MPV 11.6 H Neut # (Auto) 12.2 H Lymph # (Auto) 2.0 [place] # (Auto) 0.8 Eos # (Auto) 0.2 Baso # (Auto) 0.1 Absolute Nucleated RBC 0.00 Nucleated RBC % 0.0 Sodium 138 Potassium 3.8 Chloride 103 Carbon Dioxide 23 Anion Gap 12.0 BUN 9 Creatinine 0.8 Estimated GFR (MDRD) 74 L Glucose 153 H Calcium 9.4 Total Bilirubin 1.0 AST 51 H ALT 52 Alkaline Phosphatase 55 Troponin I < 0.04 Total Protein 7.9 Albumin 3.9 Globulin 4.0 Albumin/Globulin Ratio 1.0 Lipase 26 Urine Color Urine Clarity Urine pH Ur Specific [place] Urine Protein Urine Glucose (UA) Urine Ketones Urine Occult Blood Urine Nitrite Urine Bilirubin Urine Urobilinogen Ur Leukocyte Esterase Urine RBC Urine WBC Ur Squamous Epith Cells Urine Bacteria Ur Microscopic Review Urine Culture Comments 05/20/19 09:15 WBC RBC Hgb Hct MCV MCH MCHC RDW Plt Count MPV Neut # (Auto) Lymph # (Auto) [place] # (Auto) Eos # (Auto) Baso # (Auto) Absolute Nucleated RBC Nucleated RBC % Sodium Potassium Chloride Carbon Dioxide Anion Gap BUN Creatinine Estimated GFR (MDRD) Glucose Calcium Total Bilirubin AST ALT Alkaline Phosphatase Troponin I Total Protein Albumin Globulin Albumin/Globulin Ratio Lipase Urine Color YELLOW Urine Clarity HAZY Urine pH 7.0 Ur Specific [place] 1.010 Urine Protein NEGATIVE Urine Glucose (UA) NEGATIVE Urine Ketones NEGATIVE Urine Occult Blood TRACE-LYSE Urine Nitrite NEGATIVE Urine Bilirubin NEGATIVE Urine Urobilinogen 0.2 (NORMAL) Ur Leukocyte Esterase TRACE H Urine RBC 0-5 Urine WBC 6-10 H Ur Squamous Epith Cells MANY Squamous H Urine Bacteria Few Ur Microscopic Review INDICATED Urine Culture Comments NOT INDICATED - Rads (name of study) u/s gb Radiology: Prelim report reviewed (Impression: 1. Several small gallbladder stones and polyps as described. There is also irregular thickening of the anterior gallbladder neck indeterminate. A positive sonographic Talbot sign and variable gallbladder wall thickness noted. Given these indeterminate findings further evaluation with abdominal CT is indicated to exclude the possibility of cholecystitis or small mass lesion. A nuclear medicine the DISIA can should also be considered. 2. Moderate fatty infiltrated and mildly enlarged liver), EMP read indepedently, See rad report CT abd pel with Radiology: Prelim report reviewed (Impression: 1. No convincing acute abdominal pelvic findings. Fatty liver. 3. other findings as noted above.), EMP read indepedently, See rad report Procedures - Bedside sono Bedside sono by EMP: With use of bedside ultrasound the gallbladder is imaged it is distended there are obvious shadowing stones. I am unable to determine the specific sonographic tenderness the area is tender. PD MEDICAL DECISION MAKING - ED course Complexity details: reviewed old records, reviewed results, re-evaluated patient, considered differential, d/w patient, d/w family ED course: 58 y/o female with persistent RUQ pain has a tender swollen gallbladder, elevated WBC and her pain does not resolve with treatment in the ED. Dr. Stroud is consulted in the case and admits the patient to the hospital. Departure - Departure Disposition: [facility] DC/[facility] Clinical Impression: Cholecystitis Discharge Date/Time: 05/20/19 15:03
[2019-05-20] MEDS ORDERED: IOVERSOL 320 100 ML VIAL IVP ONE ×3 (08:18→11:30)
[2019-05-20] MEDS ORDERED: HYDROmorphone 1 MG/ML CARPUJECT IVP STA (08:23)
[2019-05-20] MEDS ORDERED: PROMETHAZINE INJ 25 MG in SODIUM CHLORIDE 0.9% 50 ML IV STA (08:53)
[2019-05-20 09:24] LABS: BILIRUBIN,URINE NEGATIVE (NEGATIVE); GLUCOSE, URINE (UA) NEGATIVE (NEGATIVE); KETONES,URINE (UA) NEGATIVE (NEGATIVE); LEUKOCYTE ESTERASE, URINE TRACE (NEGATIVE); NITRITE,URINE NEGATIVE (NEGATIVE); OCCULT BLOOD,URINE TRACE-LYSE (NEGATIVE); PROTEIN,URINE NEGATIVE (NEGATIVE); UROBILINOGEN,URINE 0.2 (NORMAL) E.U./dL (NORMAL)
[2019-05-20 09:25] LABS: CLARITY,URINE HAZY (CLEAR)
[2019-05-20 09:34] LABS: BACTERIA,URINE Few /HPF (None Seen); RBC,URINE 0-5 /HPF (0-5); SQUAMOUS EPITHELIAL CELL,UR MANY Squamous (<= Few)
--- NOTE | 2019-05-20 10:29 | Ultrasound Report ---
Reason: RUQ pain Procedure Date: 05/20/2019 Accession Number: [id number] / [id number] Procedure: US - Abdomen Limited CPT Code: FULL RESULT: EXAM: ABDOMEN ULTRASOUND LIMITED, RUQ EXAM DATE: 05/20/2019 09:51 AM. CLINICAL HISTORY: Right upper quadrant abdominal pain. COMPARISON: None. TECHNIQUE: Real-time scanning was performed with static images obtained. FINDINGS: Liver: Liver parenchyma is moderately echogenic limiting sonographic evaluation. No evidence for cirrhosis or mass lesion. The right lobe is mildly prominent measuring 19.2 cm. Main portal vein flow: Hepatopetal. Gallbladder: Several small gallbladder stones are present in the neck measuring up to 12 mm. There is a prominent echogenic structure about the anterior gallbladder neck measuring 1.9 cm which is nonmobile and could represent a polyp or other lesion. Several small anterior wall polyps are identified measuring up to 5 mm. The gallbladder wall is variable in thickness ranging from less than 2 mm to potentially thickened posteriorly though this could be artifactual. There is a positive sonographic Talbot sign per the bullet assembly press operator. Biliary System: CBD measures 8 mm. No intrahepatic or extrahepatic ductal dilatation. Other: The right kidney shows no hydronephrosis or convincing stones. No ascites evident. IMPRESSION: 1. Several small gallbladder stones and polyps as described. There is also irregular thickening of the anterior gallbladder neck, indeterminate. A positive sonographic Talbot sign and variable gallbladder wall thickness noted. Given these indeterminate findings, further evaluation with abdominal CT is indicated to exclude the possibility of cholecystitis or small mass lesion. A nuclear medicine DISIDA scan could also be considered. 2. Moderately fatty infiltrated and mildly enlarged liver. RADIA
--- NOTE | 2019-05-20 11:54 | CT Report ---
Reason: RUQ pain Procedure Date: 05/20/2019 Accession Number: [id number] / [id number] Procedure: CT - Abdomen/Pelvis W CPT Code: FULL RESULT: EXAM: CT ABDOMEN AND PELVIS EXAM DATE: 05/20/2019 11:29 AM. CLINICAL HISTORY: RUQ pain. COMPARISONS: ABDOMEN/PELVIS W/ 10/28/2013 5:02 PM. TECHNIQUE: Routine helical CT imaging was performed through the abdomen and pelvis. IV contrast: 90 cc Optiray 320. Enteric contrast: No. Reconstructions: Coronal and sagittal. In accordance with CT protocol optimization, one or more of the following dose reduction techniques were utilized for this exam: automated exposure control, adjustment of mA and/or KV based on patient size, or use of iterative reconstructive technique. FINDINGS: Lung Bases: Unremarkable. Liver: Fatty liver, as before. No focal liver lesion. Gallbladder/Bile Ducts: Unremarkable. Spleen: Normal. Pancreas: Normal. Adrenal Glands: Normal. Kidneys: No hydronephrosis or convincing solid mass. Probable left renal cortical cyst. Peritoneal Cavity/Bowel: No free air or free fluid. Pancolonic diverticulosis most conspicuous in the sigmoid colon and right colon. No mass or acute inflammatory process. No obstruction The appendix is well visualized and normal. Pelvic Organs: Uterus is absent. Urinary bladder unremarkable. No adnexal mass. Vasculature: No aneurysms or other significant abnormality. Bones: No significant abnormality. Other: None. IMPRESSION: 1. No convincing acute abdominopelvic findings. 2. Fatty liver. 3. Other findings as noted above. RADIA
[2019-05-20] MEDS ORDERED: ACETAMINOPHEN 325 MG TABLET PO PRN (14:05)
[2019-05-20] MEDS ORDERED: SODIUM CHLORIDE FLUSH 0.9% 10 ML SYRINGE IVP PRN (14:05)
--- NOTE | 2019-05-20 14:24 | HISTORY & PHYSICAL EXAMINATION ---
Chief Complaint - Chief Complaint Chief Complaint: Abdominal pain with nausea and vomiting Abdominal Pain HPI - Admitted From Admitted from: ED - History Obtained From Records Reviewed: RN notes reviewed History obtained from: Patient, Family Exam limitations: Other (Patient's general state of Discomfort) - History of Present Illness Severity at the worst: Severe Pain Quality: Sharp, Dull, Aching, Cramping Context-Pain started w/: Rest Timing: Gradual onset (Getting worse with time) Duration: Days: (2) Improved with: Nothing Worsened by: Exertion, Eating, Movement, Palpation Associated symptoms: Nausea, Vomiting, General Weakness (Shmuel is a very pleasant 58-year-old lady who has personal history of Nicole-Danlos syndrome. She presented to our emergency room with 3 days of nausea and vomiting associated with right upper quadrant abdominal pain.She reports she is never had similar symptoms.She and her both report that she has been on multiple courses of varying kinds of antibiotics in the last 6 weeks to 3 months. She has had tooth abscesses and is suffering with something on her scalp that she is now being treated for with Diflucan. She denies any sick contacts. 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: Hysterectomy, Oophrectomy, Breast reduction Social & Family Hx - Living Situation Living Arrangement: At home Living Situation: With family - Social History Does the pt smoke?: No Smoking Status: Never smoker Does the pt drink ETOH?: No Does the pt have substance abuse?: No - POLST Patient has POLST: No Meds/Allgy - Home Medications Home Medications: Ambulatory Orders Medication Instructions Recorded Confirmed Estradiol [Vivelle-Dot] 1 each TD DAILY 10/28/13 05/06/19 Zolpidem [Ambien] 5 mg PO HS 10/28/13 05/06/19 Metoprolol Succinate [Toprol Xl] 50 mg PO DAILY 12/12/13 05/06/19 Ondansetron Odt [Zofran] 4 mg TL Q6H PRN #10 tablet 10/19/14 05/06/19 Alprazolam [Alprazolam Xr] 2 mg PO DAILY #10 tab.er.24h 10/13/17 05/06/19 Dextroamphetamine/Amphetamine 20 mg PO BID 05/06/19 05/06/19 [Adderall 20 mg Tablet] Esomeprazole Magnesium [Nexium] 20 mg PO 05/06/19 Fluoxetine HCl [Prozac] 20 mg PO 05/06/19 05/06/19 Irbesartan 75 mg PO DAILY 05/06/19 05/06/19 Ketotifen Fumarate [Zaditor] 5 ml OP DAILY 05/06/19 05/06/19 Lactobacillus Acidophilus 1 each PO DAILY 05/06/19 05/06/19 [Probiotic Acidophilus] Loratadine [Claritin] 10 mg PO DAILY 05/06/19 05/06/19 Minocycline HCl 50 mg PO DAILY 05/06/19 05/06/19 hydrALAZINE [Apresoline] 10 mg PO DAILY 05/06/19 05/06/19 - Allergies Allergies/Adverse Reactions: Allergies Allergy/AdvReac Type Severity Reaction Status Date / Time adhesive Allergy Intermediate Rash Verified 05/20/19 06:28 lorazepam [From Ativan] Allergy jittery Verified 05/20/19 06:28 aripiprazole [From Abilify] AdvReac Severe Anxiety Verified 05/20/19 06:28 cimetidine [From Tagamet] AdvReac Severe Anxiety Verified 05/20/19 06:28 cimetidine HCl * AdvReac Severe Anxiety Verified 05/20/19 06:28 [From Tagamet] diphenhydramine HCl * AdvReac Severe Anxiety Verified 05/20/19 06:28 [From Benadryl] trazodone AdvReac Severe Migraine Verified 05/20/19 06:28 Headache morphine sulfate * AdvReac Nausea Verified 05/20/19 06:28 [From Mari] artificial sweetener AdvReac Intermediate mouth sores Uncoded 05/06/19 22:37 Review of Systems - Constitutional Constitutional: reports: Fatigue, Weakness - Eyes Eyes: denies: Pain, Irritation - Ears, Nose & Throat Ears, Nose & Throat: denies: Ear pain, Tinnitus, Vertigo - Cardiovascular Cariovascular: denies: Irregular heart rate, Palpitations, Chest pain, Lightheadedness, Syncope - Respiratory Respiratory: denies: Cough, Sputum production, Wheezing, Orthopnea - Gastrointestinal Gastrointestinal: reports: Abdominal pain, Abdominal distention, Nausea, Vomiting, Reflux/heartburn, Poor appetite - Genitourinary Genitourinary: denies: Dysuria, Frequency, Urgency - Musculoskeletal Musculoskeletal: denies: Muscle pain, Muscle aches, Stiffness - Integumentary Integumentary: reports: Rash (Affecting her scalp) - Neurological Neurological: reports: Other (Denies) - Endocrine Endocrine: denies: Polyuria, Polydypsia - Hematologic/Lymphatic Hematologic/Lymphatic: reports: Bruising. denies: Blood clots, Bleeding tendencies Exam - Vital Signs Reviewed Vital Signs: Yes Vital Signs: Vital Signs x48h Temp Pulse Resp BP Pulse Ox 05/20/19 13:10 63 16 168/78 H 95 05/20/19 10:21 79 18 134/78 H 97 05/20/19 06:25 36.4 C L 65 18 147/70 H 97 - Physical Exam General Appearance: positive: Moderate distress Eyes Bilateral: positive: Normal inspection, PERRL, EOMI, No scleral icterus ENT: positive: ENT inspection nml, No signs of dehydration Neck: positive: Nml inspection, Thyroid nml, No JVD, Trachea midline. negative: Lymphadenopathy (R), Lymphadenopathy (L) Respiratory: positive: Chest non-tender, No respiratory distress Cardiovascular: positive: Regular rate & rhythm, No murmur Peripheral Pulses: positive: 1+ Abdomen: positive: Tenderness (Right upper quadrant and midepigastric tenderness), Guarding. negative: Rebound, Mass, Abnml bowel sounds Skin: positive: Color nml (Macular rash noted upon the patient's scalp. The top of her head has been shaved.). negative: No rash Neurologic/Psychiatric: positive: Oriented x3, CN's nml (2-12), Motor nml, Sensation nml, Mood/affect nml Results - Lab Results Fish Bones: 05/20/19 07:23 05/20/19 07:23 Other Lab Results: Lab Results x24hrs 05/20/19 05/20/19 05/20/19 Range/Units 09:15 07:23 07:23 WBC (4.8-10.8) x10^3/uL RBC (4.20-5.40) 10^6/uL Hgb (12.0-16.0) g/dL Hct (37.0-47.0) % MCV (81.0-99.0) fL MCH (27.0-31.0) pg MCHC (32.0-36.0) g/dL RDW (12.0-15.0) % Plt Count (130-450) 10^3/uL MPV (7.9-10.8) fL Neut # (Auto) (1.5-6.6) 10^3/uL Lymph # (Auto) (1.5-3.5) 10^3/uL Schleicher # (Auto) (0.0-1.0) 10^3/uL Eos # (Auto) (0.0-0.7) 10^3/uL Baso # (Auto) (0.0-0.1) 10^3/uL Absolute Nucleated RBC x10^3/uL Nucleated RBC % /100WBC Sodium 138 (135-145) mmol/L Potassium 3.8 (3.5-5.0) mmol/L Chloride 103 (101-111) mmol/L Carbon Dioxide 23 (21-32) mmol/L Anion Gap 12.0 (6-13) BUN 9 (6-20) mg/dL Creatinine 0.8 (0.4-1.0) mg/dL Estimated GFR (MDRD) 74 L (>89) Glucose 153 H (70-100) mg/dL Calcium 9.4 (8.5-10.3) mg/dL Total Bilirubin 1.0 (0.2-1.0) mg/dL AST 51 H (10-42) IU/L ALT 52 (10-60) IU/L Alkaline Phosphatase 55 (42-121) IU/L Troponin I < 0.04 (<0.49) ng/mL Total Protein 7.9 (6.7-8.2) g/dL Albumin 3.9 (3.2-5.5) g/dL Globulin 4.0 (2.1-4.2) g/dL Albumin/Globulin Ratio 1.0 (1.0-2.2) Lipase 26 (22-51) U/L Urine Color YELLOW Urine Clarity HAZY (CLEAR) Urine pH 7.0 (5.0-7.5) PH Ur Specific Shonto 1.010 (1.002-1.030) Urine Protein NEGATIVE (NEGATIVE) mg/dL Urine Glucose (UA) NEGATIVE (NEGATIVE) mg/dL Urine Ketones NEGATIVE (NEGATIVE) mg/dL Urine Occult Blood TRACE-LYSE (NEGATIVE) Urine Nitrite NEGATIVE (NEGATIVE) Urine Bilirubin NEGATIVE (NEGATIVE) Urine Urobilinogen 0.2 (NORMAL) (NORMAL) E.U./dL Ur Leukocyte Esterase TRACE H (NEGATIVE) Urine RBC 0-5 (0-5) /HPF Urine WBC 6-10 H (0-5) /HPF Ur Squamous Epith Cells MANY Squamous H (<= Few) Urine Bacteria Few (None Seen) /HPF Ur Microscopic Review INDICATED Urine Culture Comments NOT INDICATED 05/20/19 Range/Units 07:23 WBC 15.4 H (4.8-10.8) x10^3/uL RBC 4.25 (4.20-5.40) 10^6/uL Hgb 12.8 (12.0-16.0) g/dL Hct 38.5 (37.0-47.0) % MCV 90.6 (81.0-99.0) fL MCH 30.1 (27.0-31.0) pg MCHC 33.2 (32.0-36.0) g/dL RDW 14.0 (12.0-15.0) % Plt Count 240 (130-450) 10^3/uL MPV 11.6 H (7.9-10.8) fL Neut # (Auto) 12.2 H (1.5-6.6) 10^3/uL Lymph # (Auto) 2.0 (1.5-3.5) 10^3/uL Schleicher # (Auto) 0.8 (0.0-1.0) 10^3/uL Eos # (Auto) 0.2 (0.0-0.7) 10^3/uL Baso # (Auto) 0.1 (0.0-0.1) 10^3/uL Absolute Nucleated RBC 0.00 x10^3/uL Nucleated RBC % 0.0 /100WBC Sodium (135-145) mmol/L Potassium (3.5-5.0) mmol/L Chloride (101-111) mmol/L Carbon Dioxide (21-32) mmol/L Anion Gap (6-13) BUN (6-20) mg/dL Creatinine (0.4-1.0) mg/dL Estimated GFR (MDRD) (>89) Glucose (70-100) mg/dL Calcium (8.5-10.3) mg/dL Total Bilirubin (0.2-1.0) mg/dL AST (10-42) IU/L ALT (10-60) IU/L Alkaline Phosphatase (42-121) IU/L Troponin I (<0.49) ng/mL Total Protein (6.7-8.2) g/dL Albumin (3.2-5.5) g/dL Globulin (2.1-4.2) g/dL Albumin/Globulin Ratio (1.0-2.2) Lipase (22-51) U/L Urine Color Urine Clarity (CLEAR) Urine pH (5.0-7.5) PH Ur Specific Shonto (1.002-1.030) Urine Protein (NEGATIVE) mg/dL Urine Glucose (UA) (NEGATIVE) mg/dL Urine Ketones (NEGATIVE) mg/dL Urine Occult Blood (NEGATIVE) Urine Nitrite (NEGATIVE) Urine Bilirubin (NEGATIVE) Urine Urobilinogen (NORMAL) E.U./dL Ur Leukocyte Esterase (NEGATIVE) Urine RBC (0-5) /HPF Urine WBC (0-5) /HPF Ur Squamous Epith Cells (<= Few) Urine Bacteria (None Seen) /HPF Ur Microscopic Review Urine Culture Comments - Diagnostic Imaging Results Diagnostic Imaging Results Comments: PT NAME: SHMUEL AGUILAR MR#: [id number] REG ER/ED AGE: 58 CI DT/TM: 05/20/19 PCP: Mary Lara MD : 1960 ATT: SEX: F ORD: Nestor gutierrez MD EXAM: [id number] US/ABDLTD ([id number]) Reason: RUQ pain Procedure Date: 05/20/2019 Accession Number: [id number] / [id number] Procedure: US - Abdomen Limited CPT Code: FULL RESULT: EXAM: ABDOMEN ULTRASOUND LIMITED, RUQ EXAM DATE: 05/20/2019 09:51 AM. CLINICAL HISTORY: Right upper quadrant abdominal pain. COMPARISON: None. TECHNIQUE: Real-time scanning was performed with static images obtained. FINDINGS: Liver: Liver parenchyma is moderately echogenic limiting sonographic evaluation. No evidence for cirrhosis or mass lesion. The right lobe is mildly prominent measuring 19.2 cm. Main portal vein flow: Hepatopetal. Gallbladder: Several small gallbladder stones are present in the neck measuring up to 12 mm. There is a prominent echogenic structure about the anterior gallbladder neck measuring 1.9 cm which is nonmobile and could represent a polyp or other lesion. Several small anterior wall polyps are identified measuring up to 5 mm. The gallbladder wall is variable in thickness ranging from less than 2 mm to potentially thickened posteriorly though this could be artifactual. There is a positive sonographic Talbot sign per the lace burn out tender. Biliary System: CBD measures 8 mm. No intrahepatic or extrahepatic ductal dilatation. Other: The right kidney shows no hydronephrosis or convincing stones. No ascites evident. IMPRESSION: 1. Several small gallbladder stones and polyps as described. There is also irregular thickening of the anterior gallbladder neck, indeterminate. A positive sonographic Talbot sign and variable gallbladder wall thickness noted. Given these indeterminate findings, further evaluation with abdominal CT is indicated to exclude the possibility of cholecystitis or small mass lesion. A nuclear medicine DISIDA scan could also be considered. 2. Moderately fatty infiltrated and mildly enlarged liver. 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 CLINICAL HISTORY: RUQ pain. COMPARISONS: ABDOMEN/PELVIS W/ 10/28/2013 5:02 PM. TECHNIQUE: Routine helical CT imaging was performed through the abdomen and pelvis. IV contrast: 90 cc Optiray 320. Enteric contrast: No. Reconstructions: Coronal and sagittal. In accordance with CT protocol optimization, one or more of the following dose reduction techniques were utilized for this exam: automated exposure control, adjustment of mA and/or KV based on patient size, or use of iterative reconstructive technique. FINDINGS: Lung Bases: Unremarkable. Liver: Fatty liver, as before. No focal liver lesion. Gallbladder/Bile Ducts: Unremarkable. Spleen: Normal. Pancreas: Normal. Adrenal Glands: Normal. Kidneys: No hydronephrosis or convincing solid mass. Probable left renal cortical cyst. Peritoneal Cavity/Bowel: No free air or free fluid. Pancolonic diverticulosis most conspicuous in the sigmoid colon and right colon. No mass or acute inflammatory process. No obstruction The appendix is well visualized and normal. Pelvic Organs: Uterus is absent. Urinary bladder unremarkable. No adnexal mass. Vasculature: No aneurysms or other significant abnormality. Bones: No significant abnormality. Other: None. IMPRESSION: 1. No convincing acute abdominopelvic findings. 2. Fatty liver. 3. Other findings as noted above. 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 at 730.Further plans will be made at the time of the operation but she may indeed require additional IV antibiotics.
[2019-05-20] MEDS ORDERED: PIPERACILLIN/TAZOBACTAM 3.375 GM in SODIUM CHLORIDE 0.9% MINIBAG 100 ML IV SCH (16:00)
[2019-05-20] MEDS: DEXTROSE 5%-0.9% NACL 1,000 ML IV SCH (16:01)
--- NOTE | 2019-05-20 16:10 | ANESTHESIA ---
Pre-Anesthesia VS, & Labs - Diagnosis Cholecystitis - Procedure Lap gwen Vital Signs: Temp Pulse Resp BP Pulse Ox 36.4 C L 63 16 168/78 H 95 05/20/19 06:25 05/20/19 13:10 05/20/19 13:10 05/20/19 13:10 05/20/19 13:10 Height 5 ft 4 in Weight (kg) 108.862 kg Body Mass Index 41.1 - NPO Other (Will be NPO tomorrow at 0730) - Is Patient ?: No - Lab Results Current Lab Results: Laboratory Tests 05/20/19 07:23: Troponin I < 0.04 05/20/19 07:23: Sodium 138, Potassium 3.8, Chloride 103, Carbon Dioxide 23, Anion Gap 12.0, BUN 9, Creatinine 0.8, Estimated GFR (MDRD) 74 L, Glucose 153 H, Calcium 9.4, Total Bilirubin 1.0, AST 51 H, ALT 52, Alkaline Phosphatase 55, Total Protein 7.9, Albumin 3.9, Globulin 4.0, Albumin/Globulin Ratio 1.0, Lipase 26 05/20/19 07:23: WBC 15.4 H, RBC 4.25, Hgb 12.8, Hct 38.5, MCV 90.6, MCH 30.1, MCHC 33.2, RDW 14.0, Plt Count 240, MPV 11.6 H, Neut # (Auto) 12.2 H, Lymph # (Auto) 2.0, Granite # (Auto) 0.8, Eos # (Auto) 0.2, Baso # (Auto) 0.1, Absolute Nucleated RBC 0.00, Nucleated RBC % 0.0 Fish Bones: 05/20/19 07:23 05/20/19 07:23 Home Medications and Allergies Home Medications: Ambulatory Orders Alprazolam [Alprazolam Xr] 1 mg PO DAILY 05/20/19 Dextroamphetamine/Amphetamine [Dextroamp-Amphet ER 20 mg Cap] 20 mg PO BID Estradiol [Vivelle-Dot] 1 patch TD MOTH 05/20/19 Pantoprazole [Protonix] 40 mg PO DAILY 05/20/19 Sertraline HCl [Zoloft] 100 mg PO DAILY 05/20/19 Thyroid,Pork [Research Statistician Thyroid] 15 mg PO DAILY 05/20/19 hydrOXYzine HCl [Hydroxyzine HCl] 25 mg PO BID PRN 05/20/19 Active Medications Acetaminophen (Tylenol) 650 mg PO Q4HR PRN PRN Reason: Pain or Fever > 38C (100.4F) Fluoxetine HCl (Prozac) 20 mg PO DAILY [facility] Hydralazine HCl (Apresoline) 10 mg PO DAILY [facility] Dextrose/Sodium Chloride (D5ns) 1,000 mls @ 100 mls/hr IV .Q10H [facility] Piperacillin Sod/Tazobactam (Sod 3.375 gm/ Sodium Chloride) 100 mls @ 200 mls/hr IV Q6H [facility] Promethazine HCl 25 mg/ Sodium (Chloride) 51 mls @ 100 mls/hr IV Q6H PRN PRN Reason: Nausea / Vomiting Metronidazole (Flagyl 500 Mg/100 Ml) 500 mg in 100 mls @ 100 mls/hr IV Q6HR [facility] Fluconazole (Diflucan 200 Mg/100 Ml) 100 mls @ 100 mls/hr IV DAILY [facility] Loratadine (Claritin) 10 mg PO DAILY [facility] Losartan Potassium (Cozaar) 25 mg PO DAILY [facility] Metoprolol Succinate (Toprol Xl) 50 mg PO DAILY [facility] Ondansetron HCl (Zofran Inj) 4 mg IVP Q6H PRN PRN Reason: Nausea / Vomiting Alprazolam Xr 2 Mg 1 each PO DAILY [facility] Estradiol [Vivelle- (Dot]) 1 each TOP DAILY [facility] Ketotifen Fumarate [ (Zaditor]) 1 each EACHEYE DAILY [facility] Sodium Chloride (Normal Saline Flush 0.9%) 10 ml IVP 0100,0900,1700 [facility] Sodium Chloride (Normal Saline Flush 0.9%) 10 ml IVP PRN PRN PRN Reason: NEEDED PER PROVIDER ORDERS Zolpidem Tartrate (Ambien) 5 mg PO HS [facility] Zolpidem [Ambien] 10 mg PO HS 10/28/13 Irbesartan 75 mg PO DAILY 05/06/19 Ketotifen Fumarate [Zaditor] 5 ml OP DAILY 05/06/19 Minocycline HCl 100 mg PO BID 05/06/19 Alprazolam [Alprazolam Xr] 1 mg PO DAILY 05/20/19 Dextroamphetamine/Amphetamine [Dextroamp-Amphet ER 20 mg Cap] 20 mg PO BID 05/20/19 Estradiol [Vivelle-Dot] 1 patch TD MOTH 05/20/19 Pantoprazole [Protonix] 40 mg PO DAILY 05/20/19 Sertraline HCl [Zoloft] 100 mg PO DAILY 05/20/19 Thyroid,Pork [Research Statistician Thyroid] 15 mg PO DAILY 05/20/19 hydrOXYzine HCl [Hydroxyzine HCl] 25 mg PO BID PRN 05/20/19 Allergies/Adverse Reactions: Allergies Allergy/AdvReac Type Severity Reaction Status Date / Time adhesive Allergy Intermediate Rash Verified 05/20/19 06:28 lorazepam [From Ativan] Allergy jittery Verified 05/20/19 06:28 aripiprazole [From Abilify] AdvReac Severe Anxiety Verified 05/20/19 06:28 cimetidine [From Tagamet] AdvReac Severe Anxiety Verified 05/20/19 06:28 cimetidine HCl * AdvReac Severe Anxiety Verified 05/20/19 06:28 [From Tagamet] diphenhydramine HCl * AdvReac Severe Anxiety Verified 05/20/19 06:28 [From Benadryl] trazodone AdvReac Severe Migraine Verified 05/20/19 06:28 Headache morphine sulfate * AdvReac Nausea Verified 05/20/19 06:28 [From Mari] artificial sweetener AdvReac Intermediate mouth sores Uncoded 05/06/19 22:37 Anes History & Medical History - Anesthetic History Anesthesia Complications: reports: No previous complications Family history of Anesthesia Complications: Denies Family history of Malignant Hyperthermia: Denies - Medical History Cardiovascular: reports: None Pulmonary: reports: None, Shortness of breath, Other (Mast cell activation disorder) Gastrointestinal: reports: None, Other (Current nausea/vomiting) Urinary: reports: Kidney stones Neuro: reports: None, Other (History of seizure once) Musculoskeletal: reports: Other (Collagen disorder) Endocrine/Autoimmune: reports: None Blood Disorders: reports: None Skin: reports: None, Other (Patient with 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 - Surgical History Gynecologic: Hysterectomy, Oophrectomy, Breast reduction Exam General: Moderate distress (Patient mumbling/crying stating she doesn't want to do this) Dental: Other (Bridge) Mouth Openin Fingerbreadth Neck Mobility: Reduced (Patient with short neck, excess thyroid adipose tissue and a "buffalo hump", could be a difficult airway.) Mallampati classification: II Thyromental Distance: 4-6 cm Respiratory: Lungs clear Cardiovascular: Regular rate Neurological: Sensation intact Mental/Cognitive Status: Lethargic, Other (Patient appears depressed, head hanging down, mumbles when asked questions) Cognitive Status: Other (describe below) (Upset about situation, mumbling, falls asleep while being interviewed) Plan Anesthesia Type: General Consent for Procedure(s) Verified and Reviewed: Yes Code Status: Attempt Resuscitation ASA classification: 3-Severe systemic disease Is this case an emergency?: Yes (Pt WBC elevated indicating an infective process)
[2019-05-20] MEDS: FLUCONAZOLE 200 MG/100 ML 100 ML IV SCH (16:36)
[2019-05-20] MEDS ORDERED: metroNIDAZOLE 500 MG/100 ML 500 MG/100 ML BAG IV SCH (18:00)
[2019-05-20] MEDS: PROMETHAZINE INJ 25 MG in SODIUM CHLORIDE 0.9% 50 ML IV PRN (18:06)
[2019-05-20] MEDS: SODIUM CHLORIDE FLUSH 0.9% 10 ML SYRINGE IVP SCH (19:08)
[2019-05-20] MEDS ORDERED: GI COCKTAIL 120 ML BOTTLE PO PRN (20:51)
[2019-05-20] MEDS: ZOLPIDEM 5 MG TABLET PO SCH (21:23)
[2019-05-20] MEDS: PANTOPRAZOLE 40 MG TABLET PO SCH (21:23)
[2019-05-20] MEDS: ONDANSETRON 4 MG/2 ML VIAL IVP PRN (21:55)
[2019-05-21] MEDS: DEXTROSE 5%-0.9% NACL 1,000 ML IV SCH ×2 (00:07→06:20)
[2019-05-21] MEDS: PIPERACILLIN/TAZOBACTAM 3.375 GM in SODIUM CHLORIDE 0.9% MINIBAG 100 ML IV SCH ×4 (00:49→19:57)
[2019-05-21] MEDS: SODIUM CHLORIDE FLUSH 0.9% 10 ML SYRINGE IVP SCH ×5 (01:20→23:04)
[2019-05-21] MEDS ORDERED: metroNIDAZOLE 500 MG/100 ML 500 MG/100 ML BAG IV SCH (02:00)
[2019-05-21] MEDS: PROMETHAZINE INJ 25 MG in SODIUM CHLORIDE 0.9% 50 ML IV PRN (02:05)
[2019-05-21] MEDS ORDERED: MAG HYDROX/AL HYDROX/SIMETH 30 ML UDC PO PRN (02:21)
[2019-05-21] MEDS ORDERED: MAG HYDROX/AL HYDROX/SIMETH 30 ML UDC ONE (02:24)
[2019-05-21] MEDS ORDERED: LIDOCAINE VISCOUS 2% 15 ML UDC ONE ×2 (02:24→02:25)
[2019-05-21] MEDS: LIDOCAINE VISCOUS 2% 15 ML UDC MM PRN ×2 (02:25→19:56)
[2019-05-21] MEDS: ONDANSETRON 4 MG/2 ML VIAL IVP PRN (05:30)
[2019-05-21 05:47] LABS: BASOPHILS # (AUTO) 0.1 10^3/uL (0.0-0.1); BASOPHILS % (AUTO) 0.5 %; EOSINOPHILS # (AUTO) 0.1 10^3/uL (0.0-0.7); EOSINOPHILS % (AUTO) 0.6 %; HGB - HEMOGLOBIN 11.8 g/dL (12.0-16.0); LYMPHOCYTES # (AUTO) 1.8 10^3/uL (1.5-3.5); LYMPHOCYTES % (AUTO) 10.8 %; MEAN CORPUSCULAR HEMOGLOBIN 30.2 pg (27.0-31.0); MEAN CORPUSCULAR HGB CONC 32.8 g/dL (32.0-36.0); MEAN CORPUSCULAR VOLUME 92.1 fL (81.0-99.0); MEAN PLATELET VOLUME 11.7 fL (7.9-10.8); MONOCYTES # (AUTO) 1.3 10^3/uL (0.0-1.0); MONOCYTES % (AUTO) 7.9 %; NEUTROPHILS # (AUTO) 13.2 10^3/uL (1.5-6.6); NEUTROPHILS % (AUTO) 79.2 %; PLT - PLATELET COUNT 205 10^3/uL (130-450); RED BLOOD COUNT 3.91 10^6/uL (4.20-5.40); RED CELL DISTRIBUTION WIDTH 13.9 % (12.0-15.0); WHITE BLOOD COUNT 16.7 x10^3/uL (4.8-10.8)
[2019-05-21 06:00] LABS: ALBUMIN 3.6 g/dL (3.2-5.5); BILIRUBIN,TOTAL 1.2 mg/dL (0.2-1.0); CALCIUM 8.7 mg/dL (8.5-10.3); CREATININE 0.8 mg/dL (0.4-1.0); TOTAL PROTEIN 7.2 g/dL (6.7-8.2)
[2019-05-21] MEDS ORDERED: HYDROmorphone 1 MG/ML CARPUJECT IVP ONE (06:46)
[2019-05-21] MEDS: PANTOPRAZOLE 40 MG TABLET PO SCH (06:59)
[2019-05-21] MEDS ORDERED: HYDROmorphone 0.5 MG/0.5 ML SYRINGE IVP SCH (07:00)
[2019-05-21] MEDS ORDERED: BUPIVACAINE 0.5%-EPI 1:200000 PF 30 ML VIAL ONE (07:37)
[2019-05-21] MEDS ORDERED: LIDOCAINE 1% 50 ML MDV ONE (07:38)
--- NOTE | 2019-05-21 08:08 | PROVIDER PROGRESS NOTE ---
Subjective - Prog Note Date Prog Note Date: 05/21/19 Prog Note Time: 08:06 - Subjective Pt reports feeling: No change Subjective: No real manager change night. Pain has improved a bit though she is still very uncomfortable. 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 No vomiting overnight but mildly nauseated. Lungs are clear bilaterally. Heart is regular rate and rhythm. We will proceed to the operating room for Laparoscopic Cholecystectomy. Consent is signed and on the chart. Objective - Vital Signs/Intake & Output Vital Signs: Vital Signs x48h Temp Pulse Resp BP Pulse Ox 05/21/19 06:45 37.2 C 81 18 152/70 H 95 05/21/19 02:27 37.4 C 82 18 167/75 H 95 Intake & Output: Intake & Output 05/18/19 05/19/19 05/20/19 05/21/19 23:59 23:59 23:59 23:59 Intake Total 1402 1401.000 Output Total 300 Balance 1402 1101.000 - Lab Results Fish Bones: 05/21/19 05:40 05/21/19 05:40 Other Labs: Lab Results x24hrs 05/21/19 05/21/19 05/21/19 Range/Units 05:40 05:40 05:34 WBC 16.7 H (4.8-10.8) x10^3/uL RBC 3.91 L (4.20-5.40) 10^6/uL Hgb 11.8 L (12.0-16.0) g/dL Hct 36.0 L (37.0-47.0) % MCV 92.1 (81.0-99.0) fL MCH 30.2 (27.0-31.0) pg MCHC 32.8 (32.0-36.0) g/dL RDW 13.9 (12.0-15.0) % Plt Count 205 (130-450) 10^3/uL MPV 11.7 H (7.9-10.8) fL Neut # (Auto) 13.2 H (1.5-6.6) 10^3/uL Lymph # (Auto) 1.8 (1.5-3.5) 10^3/uL [place] # (Auto) 1.3 H (0.0-1.0) 10^3/uL Eos # (Auto) 0.1 (0.0-0.7) 10^3/uL Baso # (Auto) 0.1 (0.0-0.1) 10^3/uL Absolute Nucleated RBC 0.00 x10^3/uL Nucleated RBC % 0.0 /100WBC Sodium 135 (135-145) mmol/L Potassium 3.4 L (3.5-5.0) mmol/L Chloride 99 L (101-111) mmol/L Carbon Dioxide 23 (21-32) mmol/L Anion Gap 13.0 (6-13) BUN 7 (6-20) mg/dL Creatinine 0.8 (0.4-1.0) mg/dL Estimated GFR (MDRD) 74 L (>89) Glucose 155 H (70-100) mg/dL POC Whole Bld Glucose 150 H (70 - 100) mg/dL Calcium 8.7 (8.5-10.3) mg/dL Total Bilirubin 1.2 H (0.2-1.0) mg/dL AST 59 H (10-42) IU/L ALT 58 (10-60) IU/L Alkaline Phosphatase 57 (42-121) IU/L Total Protein 7.2 (6.7-8.2) g/dL Albumin 3.6 (3.2-5.5) g/dL Globulin 3.6 (2.1-4.2) g/dL Albumin/Globulin Ratio 1.0 (1.0-2.2) Urine Color Urine Clarity (CLEAR) Urine pH (5.0-7.5) PH Ur Specific Ald[place] (1.002-1.030) Urine Protein (NEGATIVE) mg/dL Urine Glucose (UA) (NEGATIVE) mg/dL Urine Ketones (NEGATIVE) mg/dL Urine Occult Blood (NEGATIVE) Urine Nitrite (NEGATIVE) Urine Bilirubin (NEGATIVE) Urine Urobilinogen (NORMAL) E.U./dL Ur Leukocyte Esterase (NEGATIVE) Urine RBC (0-5) /HPF Urine WBC (0-5) /HPF Ur Squamous Epith Cells (<= Few) Urine Bacteria (None Seen) /HPF Ur Microscopic Review Urine Culture Comments 05/20/19 05/20/19 Range/Units 23:30 09:15 WBC (4.8-10.8) x10^3/uL RBC (4.20-5.40) 10^6/uL Hgb (12.0-16.0) g/dL Hct (37.0-47.0) % MCV (81.0-99.0) fL MCH (27.0-31.0) pg MCHC (32.0-36.0) g/dL RDW (12.0-15.0) % Plt Count (130-450) 10^3/uL MPV (7.9-10.8) fL Neut # (Auto) (1.5-6.6) 10^3/uL Lymph # (Auto) (1.5-3.5) 10^3/uL [place] # (Auto) (0.0-1.0) 10^3/uL Eos # (Auto) (0.0-0.7) 10^3/uL Baso # (Auto) (0.0-0.1) 10^3/uL Absolute Nucleated RBC x10^3/uL Nucleated RBC % /100WBC Sodium (135-145) mmol/L Potassium (3.5-5.0) mmol/L Chloride (101-111) mmol/L Carbon Dioxide (21-32) mmol/L Anion Gap (6-13) BUN (6-20) mg/dL Creatinine (0.4-1.0) mg/dL Estimated GFR (MDRD) (>89) Glucose (70-100) mg/dL POC Whole Bld Glucose 164 H (70 - 100) mg/dL Calcium (8.5-10.3) mg/dL Total Bilirubin (0.2-1.0) mg/dL AST (10-42) IU/L ALT (10-60) IU/L Alkaline Phosphatase (42-121) IU/L Total Protein (6.7-8.2) g/dL Albumin (3.2-5.5) g/dL Globulin (2.1-4.2) g/dL Albumin/Globulin Ratio (1.0-2.2) Urine Color YELLOW Urine Clarity HAZY (CLEAR) Urine pH 7.0 (5.0-7.5) PH Ur Specific [place] 1.010 (1.002-1.030) Urine Protein NEGATIVE (NEGATIVE) mg/dL Urine Glucose (UA) NEGATIVE (NEGATIVE) mg/dL Urine Ketones NEGATIVE (NEGATIVE) mg/dL Urine Occult Blood TRACE-LYSE (NEGATIVE) Urine Nitrite NEGATIVE (NEGATIVE) Urine Bilirubin NEGATIVE (NEGATIVE) Urine Urobilinogen 0.2 (NORMAL) (NORMAL) E.U./dL Ur Leukocyte Esterase TRACE H (NEGATIVE) Urine RBC 0-5 (0-5) /HPF Urine WBC 6-10 H (0-5) /HPF Ur Squamous Epith Cells MANY Squamous H (<= Few) Urine Bacteria Few (None Seen) /HPF Ur Microscopic Review INDICATED Urine Culture Comments NOT INDICATED
[2019-05-21] MEDS ORDERED: cefOXitin 2 GM VIAL IV ONE (08:20)
[2019-05-21] MEDS ORDERED: LIDOCAINE 1% 10 ML MDV SUBQ ONE ×2 (08:49)
[2019-05-21] MEDS ORDERED: BUPIVACAINE 0.5%-EPI 1:200000 PF 30 ML VIAL SUBQ ONE ×2 (08:50)
[2019-05-21] MEDS ORDERED: LACTATED RINGERS 1,000 ML IV ONE ×3 (08:53→09:40)
[2019-05-21] MEDS: FLUCONAZOLE 200 MG/100 ML 100 ML IV SCH (09:00)
[2019-05-21] MEDS: LORATADINE 10 MG TABLET PO SCH (09:00)
[2019-05-21] MEDS: ESTRADIOL TOP SCH (09:00)
[2019-05-21] MEDS ORDERED: FLUCONAZOLE 200 MG/100 ML 100 ML IV SCH (09:00)
[2019-05-21] MEDS: hydrALAZINE 10 MG TABLET PO SCH (09:00)
[2019-05-21] MEDS: LOSARTAN 50 MG TABLET PO SCH (09:00)
[2019-05-21] MEDS: Ketotifen Fumarate [Zaditor] EACHEYE SCH (09:00)
[2019-05-21] MEDS: ALPRAZOLAM 2 MG PO SCH (09:00)
[2019-05-21] MEDS ORDERED: FLUoxetine 10 MG CAPSULE PO SCH (09:00)
--- NOTE | 2019-05-21 09:36 | OPERATIVE REPORT ---
Operative Report - General Admit Date: 05/20/19 Procedure Date: 05/21/19 Planned Procedure: Laparoscopic cholecystectomy Pre-Op Diagnosis: Acute cholecystitis Procedure Performed: Laparoscopic cholecystectomy with drain placement Post Op Diagnosis: Same - Procedure Note Primary Surgeon: Luzma Anesthesia Provider: Susan Anesthesia Technique: General ET tube, Local Pathology: Gallbladder to pathology in formalin IV Fluids (mL): 1,100 Estimated Blood Loss (mL): 100 Drain/Tube Type: Regino drain (19 Citizen [place] in the gallbladder fossa) Findings: Gallbladder hydrops with areas of nearly full-thickness necrosis Complications: None apparent - Other Other Information/Narrative: After obtaining informed consent, the patient is brought to the operating room placed in supine position on the operating table. Following successful induction of general endotracheal anesthesia, appropriate padding of all bony prominences, and placement of appropriate monitors, the abdomen was prepped and draped in the standard surgical fashion. A timeout was held per SCOAP protocol. Following infiltration with local anesthetic to create a field block, an incision was created just inferior to the umbilicus and carried down through the skin and subcutaneous tissue to reveal the fascia below. 2-0 Vicryl retention sutures were placed on either side of the midline and the abdomen was entered under direct vision using a 15 blade scalpel.A 10 mm blunt Brizuela balloon trocar was placed in the abdominal cavity and it was insufflated to 15 mmHg pressure. Patient was placed in reverse Trendelenburg position with left side rotated toward the floor. A second 5 mm trocar was placed in the midepigastrium and 2 more in the right upper quadrant.These were all placed under direct vision.Camera in the umbilical position, we could visualize a dark black and deep green gallbladder in the right upper quadrant. It was remarkably distended and we were not able to grasp it with the usual atraumatic grasper. An Allis forcep was used to grasp the fundus the gallbladder and it was elevated over the liver to reveal the region of the cholecysto hepatoduodenal ligament.Careful dissection revealed the cystic duct and cystic artery. Because the patient has not had any abnormalities of her liver functions and because she has primarily polyps as opposed to stones, we elected not to perform a cholangiogram.Were clearly able to see both structures. The cystic duct was clipped 3 times proximally and once distally and divided and the cystic artery clipped twice proximally once distally and divided. The gallbladder was then liberated from its bed in the liver. It was so necrotic that it essentially avulsed from the liver with minimal assistance.Was placed in a bag and removed via the umbilical port with a camera in the epigastric position. The camera was replaced at the umbilical position and the entire abdomen checked for hemostasis. It was irrigated with 1500 cc of warm saline solution and aspirated free of all fluid and particulate matter. In 19 Citizen [place] Rgeino drain was placed in the gallbladder fossa and brought out through the right upper quadrant. It was sewn into place. The trochars were then removed under direct vision. The umbilical incision was closed in 2 layers with Vicryl Monocryl suture and Monocryl was placed in the skin of the other trocar sites.All sponge, needle, and instrument counts were correct at the conclusion of the case. The patient was allowed to awake from anesthesia without significant difficulty and taken to the postanesthesia care unit in good condition.
[2019-05-21] MEDS ORDERED: SODIUM CHLORIDE FLUSH 0.9% 10 ML SYRINGE IVP PRN (09:40)
[2019-05-21] MEDS ORDERED: ROCURONIUM 50 MG/5 ML VIAL IVP ONE (09:45)
[2019-05-21] MEDS ORDERED: GLYCOPYRROLATE 1 MG/5 ML VIAL IVP ONE (09:45)
[2019-05-21] MEDS ORDERED: DEXAMETHASONE 4 MG/ML VIAL IVP ONE (09:45)
[2019-05-21] MEDS ORDERED: PROPOFOL 200 MG/20 ML VIAL IVP ONE (09:45)
[2019-05-21] MEDS ORDERED: MIDAZOLAM 2 MG/2 ML VIAL IVP ONE (09:45)
[2019-05-21] MEDS ORDERED: NEOSTIGMINE 1 MG/1 ML 10 ML MDV IVP ONE (09:45)
[2019-05-21] MEDS ORDERED: PHENYLEPHRINE 50 MG/5 ML VIAL IV ONE (09:45)
[2019-05-21] MEDS ORDERED: ACETAMINOPHEN 1,000 MG/100 ML 100 ML IV ONE (09:45)
[2019-05-21] MEDS ORDERED: fentaNYL 250 MCG/5 ML VIAL IVP ONE (09:45)
[2019-05-21] MEDS ORDERED: hydrOXYzine PAMOATE 25 MG CAPSULE PO PRN (09:47)
[2019-05-21] MEDS: HYDROmorphone 0.5 MG/0.5 ML SYRINGE IVP PRN ×3 (10:00→19:13)
[2019-05-21] MEDS ORDERED: PANTOPRAZOLE 40 MG TABLET PO SCH (10:00)
[2019-05-21] MEDS: LACTATED RINGERS 1,000 ML IV SCH (11:53)
[2019-05-21] MEDS: METOPROLOL SUCCINATE 50 MG TABLET PO SCH (12:00)
[2019-05-21] MEDS: KETOROLAC 15 MG/ML VIAL IVP PRN (12:10)
[2019-05-21] MEDS: oxyCODONE 5 MG TABLET PO PRN ×2 (12:10→16:24)
[2019-05-21] MEDS: metroNIDAZOLE 500 MG/100 ML 500 MG/100 ML BAG IV SCH ×2 (12:18→18:32)
[2019-05-21] MEDS: SERTRALINE 50 MG TABLET PO SCH (12:19)
[2019-05-21] MEDS ORDERED: SODIUM CHLORIDE FLUSH 0.9% 10 ML SYRINGE IVP SCH (17:00)
[2019-05-21] MEDS: ZOLPIDEM 5 MG TABLET PO SCH (23:03)
[2019-05-21] MEDS: PHENAZOPYRIDINE 100 MG TABLET PO SCH (23:06)
[2019-05-22] MEDS: KETOROLAC 15 MG/ML VIAL IVP PRN (00:04)
[2019-05-22] MEDS: PIPERACILLIN/TAZOBACTAM 3.375 GM in SODIUM CHLORIDE 0.9% MINIBAG 100 ML IV SCH ×2 (00:52→06:14)
[2019-05-22] MEDS: LACTATED RINGERS 1,000 ML IV SCH ×2 (02:44→11:06)
[2019-05-22] MEDS: oxyCODONE 5 MG TABLET PO PRN ×2 (02:48→09:07)
[2019-05-22] MEDS: metroNIDAZOLE 500 MG/100 ML 500 MG/100 ML BAG IV SCH ×2 (02:53→11:06)
[2019-05-22] MEDS: HYDROmorphone 0.5 MG/0.5 ML SYRINGE IVP PRN (04:28)
[2019-05-22] MEDS: PHENAZOPYRIDINE 100 MG TABLET PO SCH (06:15)
[2019-05-22 07:15] LABS: BASOPHILS # (AUTO) 0.1 10^3/uL (0.0-0.1); BASOPHILS % (AUTO) 0.3 %; EOSINOPHILS # (AUTO) 0.1 10^3/uL (0.0-0.7); EOSINOPHILS % (AUTO) 0.5 %; HGB - HEMOGLOBIN 10.2 g/dL (12.0-16.0); LYMPHOCYTES # (AUTO) 2.2 10^3/uL (1.5-3.5); LYMPHOCYTES % (AUTO) 14.8 %; MEAN CORPUSCULAR HEMOGLOBIN 30.5 pg (27.0-31.0); MEAN CORPUSCULAR HGB CONC 33.3 g/dL (32.0-36.0); MEAN CORPUSCULAR VOLUME 91.6 fL (81.0-99.0); MEAN PLATELET VOLUME 12.1 fL (7.9-10.8); MONOCYTES # (AUTO) 1.3 10^3/uL (0.0-1.0); MONOCYTES % (AUTO) 8.7 %; NEUTROPHILS % (AUTO) 74.7 %; PLT - PLATELET COUNT 199 10^3/uL (130-450); RED BLOOD COUNT 3.34 10^6/uL (4.20-5.40); RED CELL DISTRIBUTION WIDTH 14.1 % (12.0-15.0); WHITE BLOOD COUNT 14.7 x10^3/uL (4.8-10.8)
[2019-05-22 07:25] LABS: ALBUMIN 3.1 g/dL (3.2-5.5); ALBUMIN/GLOBULIN RATIO 0.9 (1.0-2.2); BILIRUBIN,TOTAL 0.9 mg/dL (0.2-1.0); CALCIUM 8.3 mg/dL (8.5-10.3); TOTAL PROTEIN 6.7 g/dL (6.7-8.2)
[2019-05-22 08:35] VITALS: BP 112/57
[2019-05-22 08:47] LABS: KETONES,URINE (UA) TRACE mg/dL (NEGATIVE); LEUKOCYTE ESTERASE, URINE NEGATIVE (NEGATIVE); OCCULT BLOOD,URINE NEGATIVE (NEGATIVE); PH,URINE 5.5 PH (5.0-7.5)
[2019-05-22 08:53] LABS: CLARITY,URINE CLEAR (CLEAR)
[2019-05-22 09:00] LABS: BILIRUBIN,URINE NEGATIVE (NEGATIVE); ICTOTEST,URINE NEGATIVE
[2019-05-22] MEDS ORDERED: ALPRAZOLAM 1 MG PO SCH (09:00)
[2019-05-22] MEDS ORDERED: THYROID PORK 15 MG PO SCH (09:00)
[2019-05-22 09:06] LABS: BACTERIA,URINE Rare /HPF (None Seen); RBC,URINE 0-5 /HPF (0-5); SQUAMOUS EPITHELIAL CELL,UR RARE Squamous (<= Few)
[2019-05-22] MEDS: LORATADINE 10 MG TABLET PO SCH (09:07)
[2019-05-22] MEDS: SERTRALINE 50 MG TABLET PO SCH (09:07)
[2019-05-22] MEDS: METOPROLOL SUCCINATE 50 MG TABLET PO SCH (09:14)
--- NOTE | 2019-05-22 09:38 | Discharge Plan ---
Discharge Plan Problem Reviewed?: Yes Disposition: Home, Self Care Condition: Good Prescriptions: oxyCODONE [Roxicodone] 5 mg PO Q4HR PRN #20 tablet PRN Reason: Pain Diet: Regular Activity Restrictions: Do not lift more than 5 pounds Shower Restrictions: No Driving Restrictions: Yes (Do not drive until you are no longer taking narcotic pain relievers) Weight Bearing: Full Weight No Smoking: If you smoke, Please STOP! Call for help. Follow-up with: Mary Lara MD [Primary Care Provider] -
--- NOTE | 2019-05-22 09:43 | DISCHARGE SUMMARY ---
"Discharge Summary Admit Date: 05/20/19 Discharge Date: 05/22/19 Discharging Provider: Luzma Primary Care Provider: Marco Code Status: Attempt Resuscitation Condition at Discharge: Good Discharge Disposition: 01 Home, Self Care - DIAGNOSES Admission Diagnoses: Acute cholecystitis and cholelithiasis Discharge Diagnoses with Status of Each Condition: Acute cholecystitis and cholelithiasis - improved after cholecystectomy - HPI History of Present Illness: Tatiana is a pleasant 58 year old lady with a history of Nicole-Danlos syndrome who presented to our emergency room with severe right upper quadrant pain and nausea and vomiting.She was found to have acute cholecystitis and was admitted to our [facility] facility for IV antibiotic therapy. - CONSULTS | PROCEDURES Procedures: Laparoscopic cholecystectomy - HOSPITAL COURSE Hospital Course: Following an overnight admission with IV antibiotics, the patient was taken to the operating room where she underwent a laparoscopic cholecystectomy. A drain was left in the postoperative period due to her history of Nicole-Danlos syndrome and to the necrotic state of the gallbladder.This morning she is much better. She is tolerating a regular diet. She has had flatus but no bowel movement as yet. She is able to walk without assistance. She reports her pain is well controlled with oral medication. Her labs are all reassuring at this point and her bilirubin is normal.She is being discharged to her home in the care of her . She will be discharged with her drain in place and will follow-up in my office in 48 hours to see the nurse and have this drain removed. - ALLERGIES Allergies/Adverse Reactions: Allergies Allergy/AdvReac Type Severity Reaction Status Date / Time adhesive Allergy Intermediate Rash Verified 05/20/19 06:28 lorazepam [From Ativan] Allergy jittery Verified 05/20/19 06:28 aripiprazole [From Abilify] AdvReac Severe Anxiety Verified 05/20/19 06:28 cimetidine [From Tagamet] AdvReac Severe Anxiety Verified 05/20/19 06:28 cimetidine HCl * AdvReac Severe Anxiety Verified 05/20/19 06:28 [From Tagamet] diphenhydramine HCl * AdvReac Severe Anxiety Verified 05/20/19 06:28 [From Benadryl] trazodone AdvReac Severe Migraine Verified 05/20/19 06:28 Headache morphine sulfate * AdvReac Nausea Verified 05/20/19 06:28 [From Mari] artificial sweetener AdvReac Intermediate mouth sores Uncoded 05/06/19 22:37 - MEDICATIONS Home Medications: Ambulatory Orders Medication Instructions Recorded Confirmed Zolpidem [Ambien] 10 mg PO HS 10/28/13 05/20/19 Alprazolam [Alprazolam Xr] 2 mg PO DAILY #10 tab.er.24h 10/13/17 05/20/19 Irbesartan 75 mg PO DAILY 05/06/19 05/20/19 Ketotifen Fumarate [Zaditor] 5 ml OP DAILY 05/06/19 05/06/19 Minocycline HCl 100 mg PO BID 05/06/19 05/20/19 Dextroamphetamine/Amphetamine 20 mg PO BID 05/20/19 05/20/19 [Dextroamp-Amphet ER 20 mg Cap] Estradiol [Vivelle-Dot] 1 patch TD MOTH 05/20/19 05/20/19 Pantoprazole [Protonix] 40 mg PO DAILY 05/20/19 05/20/19 Sertraline HCl [Zoloft] 100 mg PO DAILY 05/20/19 05/20/19 Thyroid,Pork [Dyer Assistant Thyroid] 15 mg PO DAILY 05/20/19 05/20/19 hydrOXYzine HCl [Hydroxyzine HCl] 25 mg PO BID PRN 05/20/19 05/20/19 Acetaminophen [Tylenol] 650 mg PO Q4HR PRN tablet 05/22/19 Loratadine [Claritin] 10 mg PO DAILY tablet 05/22/19 Metoprolol Succinate [Toprol Xl] 50 mg PO DAILY tablet 05/22/19 hydrALAZINE [Apresoline] 10 mg PO DAILY tablet 05/22/19 oxyCODONE [Roxicodone] 5 mg PO Q4HR PRN #20 tablet 05/22/19 - PHYSICAL EXAM AT DISCHARGE General Appearance: positive: No acute distress, Alert Eyes Bilateral: positive: Normal inspection, PERRL, EOMI, No scleral icterus ENT: positive: ENT inspection nml, No signs of dehydration Neck: positive: Nml inspection, No JVD, Trachea midline Respiratory: positive: Chest non-tender, No respiratory distress, Breath sounds nml Cardiovascular: positive: Regular rate & rhythm Peripheral Pulses: positive: 1+ Abdomen: positive: Nml bowel sounds, Other (Appropriately tender to palpation. Wounds are clean and dry. HAIDER drainage is serosanguineous.) Back: negative: CVA tenderness (R), CVA tenderness (L) Skin: positive: Color nml, No rash Neurologic/Psychiatric: positive: Oriented x3, CN's nml (2-12) - LABS Result Diagrams: 05/22/19 07:03 05/22/19 07:03 - DIAGNOSTIC IMAGING Diagnostic Imaging Results Comments: Nothing new to review - QUALITY (Female Hip Fx Only) Was patient sent home on osteoporosis medication?: No - FOLLOW UP Follow Up: Follow-up for a nurse visit in 48 hours and follow-up with me at my office in 2 weeks. - TIME SPENT Time Spent in Discharge (Minutes): 20"
[2019-05-22] MEDS: FLUCONAZOLE 200 MG/100 ML 100 ML IV SCH (09:53)
[2019-05-22] MEDS: hydrALAZINE 10 MG TABLET PO SCH (09:53)
[2019-05-22] MEDS: LOSARTAN 50 MG TABLET PO SCH (09:53)
[2019-05-22] MEDS: ALPRAZOLAM 2 MG PO SCH (09:54)
[2019-05-22] MEDS: ESTRADIOL TOP SCH (09:54)
[2019-05-22] MEDS: Ketotifen Fumarate [Zaditor] EACHEYE SCH (09:55)
[2019-05-22] MEDS ORDERED: ONDANSETRON ODT 4 MG TABLET TL PRN (10:57)
[2019-05-22] MEDS ORDERED: PANTOPRAZOLE 40 MG TABLET PO SCH (21:00)
== END 2019-05-22 13:40 | disposition home or self-care (01) | DRG 418 ==
LOC: ED 06:17 → MS3 14:05
PROVIDERS: ADMIT Surgery; ATTEND Surgery
PROC: 0FT44ZZ Resection of Gallbladder, Percutaneous Endoscopic Approach (ICD-10-PCS; principal; 2019-05-21 07:30)
DX: K80.00 Calculus of gallbladder with acute cholecystitis without obstruction (principal); Q79.6 Ehlers-Danlos syndromes; Z68.41 Body mass index [BMI] 40.0-44.9, adult; F32.9 Major depressive disorder, single episode, unspecified; F41.9 Anxiety disorder, unspecified; B35.0 Tinea barbae and tinea capitis; E66.9 Obesity, unspecified; K76.0 Fatty (change of) liver, not elsewhere classified; D89.40 Mast cell activation, unspecified; Z79.899 Other long term (current) drug therapy; Z87.442 Personal history of urinary calculi
CPT/HCPCS: 36415; 74177; 76705; 80053; 81001; 83690; 84484; 85025; 96361; 96365; 96375; 99283; 99284; A9270; J0131; J1170; J3010; J7040; J7120; Q0162; Q9967; 81003; 87086

== ENCOUNTER 2019-05-30 19:42 | Emergency (ER) | payer OTHER ==
--- NOTE | 2019-05-30 20:18 | ED Physician Documentation ---
PD HPI ABD PAIN - Stated complaint Stated Complaint: POST OP/SWOLLEN FEET/FEVER/NAUSEA - Chief complaint Chief Complaint: General - History obtained from History obtained from: Patient - History of Present Illness Timing - onset: Today (main issue is that she says there was a clot or debris in the bulb suction from her drain post op. Has been draining only 20-30 ml daily the past few days, but now not draining any, and started with there being a clot appearing clump come down the tubing. Also has had swelling of legs, more the left, with some leg pain on left. Feeling nauseated today.) Timing - duration: Days (today) Timing - details: Gradual onset Quality: Aching (having some aching feeling in surgical area today). No: Fullness/distended Location: RUQ Improved by: No: Eating Worsened by: No: Eating Associated symptoms: Nausea, Loss of appetite. No: Fever (felt warm today at times, not fevers per se.), Vomiting, Diarrhea, Constipation Recently seen: Surgery (had CCY and is a week post op, doing well.) Review of Systems Constitutional: reports: Chills. denies: Fever Nose: denies: Rhinorrhea / runny nose, Congestion Throat: denies: Sore throat Respiratory: denies: Cough GI: reports: Nausea. 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: Other : Kidney stones HEENT: None Psych: Depression Musculoskeletal: Other Derm: None - Past Surgical History Past Surgical History: Yes /EPIC AMBULATORY ANALYST: Hysterectomy, Oophrectomy, Breast reduction - Present Medications Home Medications: Ambulatory Orders Medication Instructions Recorded Confirmed Zolpidem [Ambien] 10 mg PO HS 10/28/13 05/20/19 Alprazolam [Alprazolam Xr] 2 mg PO DAILY #10 tab.er.24h 10/13/17 05/20/19 Irbesartan 75 mg PO DAILY 05/06/19 05/20/19 Ketotifen Fumarate [Zaditor] 5 ml OP DAILY 05/06/19 05/06/19 Minocycline HCl 100 mg PO BID 05/06/19 05/20/19 Dextroamphetamine/Amphetamine 20 mg PO BID 05/20/19 05/20/19 [Dextroamp-Amphet ER 20 mg Cap] Estradiol [Vivelle-Dot] 1 patch TD MOTH 05/20/19 05/20/19 Pantoprazole [Protonix] 40 mg PO DAILY 05/20/19 05/20/19 Sertraline HCl [Zoloft] 100 mg PO DAILY 05/20/19 05/20/19 Thyroid,Pork [Poem Writer Thyroid] 15 mg PO DAILY 05/20/19 05/20/19 hydrOXYzine HCl [Hydroxyzine HCl] 25 mg PO BID PRN 05/20/19 05/20/19 Acetaminophen [Tylenol] 650 mg PO Q4HR PRN tablet 05/22/19 Loratadine [Claritin] 10 mg PO DAILY tablet 05/22/19 Metoprolol Succinate [Toprol Xl] 50 mg PO DAILY tablet 05/22/19 hydrALAZINE [Apresoline] 10 mg PO DAILY tablet 05/22/19 oxyCODONE [Roxicodone] 5 mg PO Q4HR PRN #20 tablet 05/22/19 - Allergies Allergies/Adverse Reactions: Allergies Allergy/AdvReac Type Severity Reaction Status Date / Time adhesive Allergy Intermediate Rash Verified 05/30/19 19:55 lorazepam [From Ativan] Allergy jittery Verified 05/30/19 19:55 aripiprazole [From Abilify] AdvReac Severe Anxiety Verified 05/30/19 19:55 cimetidine [From Tagamet] AdvReac Severe Anxiety Verified 05/30/19 19:55 cimetidine HCl * AdvReac Severe Anxiety Verified 05/30/19 19:55 [From Tagamet] diphenhydramine HCl * AdvReac Severe Anxiety Verified 05/30/19 19:55 [From Benadryl] trazodone AdvReac Severe Migraine Verified 05/30/19 19:55 Headache morphine sulfate * AdvReac Nausea Verified 05/30/19 19:55 [From Mari] artificial sweetener AdvReac Intermediate mouth sores Uncoded 05/30/19 19:55 - Social History Does the pt smoke?: No Smoking Status: Never smoker Does the pt drink ETOH?: No Does the pt have substance abuse?: No - Immunizations Immunizations are current?: Yes - POLST Patient has POLST: No PD ED PE NORMAL - Vitals Vital signs reviewed: Yes - General General: Alert and oriented X 3, No acute distress, Well developed/nourished - Cardiac Cardiac: RRR, No murmur - Respiratory Respiratory: Clear bilaterally - Abdomen Abdomen: Soft, Non distended, No organomegaly, Other (the drain and surgical sites with slight redness at the edge, but no purulence. The tubing out appears patent. The bulb suction has a glob of clot appearing material in the one-way valve. No rebound, percussion tenderness. Mild local tenderness around wounds. ) - Derm Derm: Normal color, Warm and dry - Extremities Extremities: Other (some edema in both legs and ankles, left more than right, and has some calf tenderness. Nor skin and cap refill color.) - Neuro Neuro: Alert and oriented X 3, No motor deficit, No sensory deficit, Normal speech Results - Vitals Vitals: Vital Signs - 24 hr 05/30/19 05/30/19 05/30/19 19:49 21:23 23:37 Temperature 36.2 C L Heart Rate 99 87 80 Respiratory 18 16 16 Rate Blood Pressure 140/73 H 144/92 H 108/69 O2 Saturation 96 98 97 Oxygen O2 Source [With Activity] Room air O2 Source [Without Activity] Room air O2 Source Room air - Labs Labs: Laboratory Tests 05/30/19 05/30/19 05/30/19 20:18 20:18 20:18 WBC 9.3 RBC 4.16 L Hgb 12.5 Hct 38.1 MCV 91.6 MCH 30.0 MCHC 32.8 RDW 14.3 Plt Count 349 MPV 11.2 H Neut # (Auto) 4.6 Lymph # (Auto) 3.6 H Dickenson # (Auto) 0.6 Eos # (Auto) 0.4 Baso # (Auto) 0.1 Absolute Nucleated RBC 0.00 Nucleated RBC % 0.0 Sodium 140 Potassium 3.1 L Chloride 102 Carbon Dioxide 24 Anion Gap 14.0 H BUN 14 Creatinine 1.0 Estimated GFR (MDRD) 57 L Glucose 150 H Calcium 9.2 Magnesium 2.0 Total Bilirubin 0.9 AST 55 H ALT 55 Alkaline Phosphatase 85 B-Natriuretic Peptide Total Protein 7.4 Albumin 3.7 Globulin 3.7 Albumin/Globulin Ratio 1.0 Lipase 29 Urine Color Urine Clarity Urine pH Ur Specific [place] Urine Protein Urine Glucose (UA) Urine Ketones Urine Occult Blood Urine Nitrite Urine Bilirubin Urine Urobilinogen Ur Leukocyte Esterase Ur Microscopic Review Urine Culture Comments 05/30/19 05/30/19 20:18 21:27 WBC RBC Hgb Hct MCV MCH MCHC RDW Plt Count MPV Neut # (Auto) Lymph # (Auto) Dickenson # (Auto) Eos # (Auto) Baso # (Auto) Absolute Nucleated RBC Nucleated RBC % Sodium Potassium Chloride Carbon Dioxide Anion Gap BUN Creatinine Estimated GFR (MDRD) Glucose Calcium Magnesium Total Bilirubin AST ALT Alkaline Phosphatase B-Natriuretic Peptide 22 Total Protein Albumin Globulin Albumin/Globulin Ratio Lipase Urine Color YELLOW Urine Clarity CLEAR Urine pH 7.0 Ur Specific [place] <=1.005 Urine Protein NEGATIVE Urine Glucose (UA) NEGATIVE Urine Ketones NEGATIVE Urine Occult Blood NEGATIVE Urine Nitrite NEGATIVE Urine Bilirubin NEGATIVE Urine Urobilinogen 0.2 (NORMAL) Ur Leukocyte Esterase NEGATIVE Ur Microscopic Review NOT INDICATED Urine Culture Comments NOT INDICATED - Rads (name of study) dulplex left leg Radiology: Prelim report reviewed (no DVT), See rad report PD MEDICAL DECISION MAKING - ED course Complexity details: considered differential (replaced the bulb suction to keep draining. Duplex of leg without DVT; to have her use her furosemid. Wounds do not appear infected and abd exam is benign. ), d/w patient Departure - Departure Disposition: 01 Home, Self Care Clinical Impression: Leg swelling, Status post laparoscopic cholecystectomy, Fluid retention in legs Condition: Stable Record reviewed to determine appropriate education?: Yes Follow-Up: Mary Lara MD [Primary Care Provider] - Ronald Segal MD [Provider Admit Priv/Credential] - Comments: Continue usual medications. Use your Furosemide daily for the next 3-4 days. Double your potassium supplement for the next 5 days. The new bulb for the drain should work better. Call Dr. Segal's office tomorrow t o update on the events, and see if she wants to see you sooner than next Wednesday or still that appointment. No signs of blood clots in your leg. Elevate legs when rested. Casual walks 2-3 times daily will help reduce the swelling. Follow up PMD this week as planned as well. Discharge Date/Time: 05/30/19 23:38
[2019-05-30 20:24] LABS: BASOPHILS # (AUTO) 0.1 10^3/uL (0.0-0.1); BASOPHILS % (AUTO) 0.5 %; EOSINOPHILS # (AUTO) 0.4 10^3/uL (0.0-0.7); EOSINOPHILS % (AUTO) 3.9 %; HGB - HEMOGLOBIN 12.5 g/dL (12.0-16.0); LYMPHOCYTES # (AUTO) 3.6 10^3/uL (1.5-3.5); MEAN CORPUSCULAR HGB CONC 32.8 g/dL (32.0-36.0); MEAN CORPUSCULAR VOLUME 91.6 fL (81.0-99.0); MEAN PLATELET VOLUME 11.2 fL (7.9-10.8); MONOCYTES # (AUTO) 0.6 10^3/uL (0.0-1.0); MONOCYTES % (AUTO) 6.6 %; NEUTROPHILS # (AUTO) 4.6 10^3/uL (1.5-6.6); NEUTROPHILS % (AUTO) 49.2 %; PLT - PLATELET COUNT 349 10^3/uL (130-450); RED BLOOD COUNT 4.16 10^6/uL (4.20-5.40); RED CELL DISTRIBUTION WIDTH 14.3 % (12.0-15.0); WHITE BLOOD COUNT 9.3 x10^3/uL (4.8-10.8)
[2019-05-30 20:38] LABS: ALBUMIN 3.7 g/dL (3.2-5.5); BILIRUBIN,TOTAL 0.9 mg/dL (0.2-1.0); CALCIUM 9.2 mg/dL (8.5-10.3); TOTAL PROTEIN 7.4 g/dL (6.7-8.2)
[2019-05-30] MEDS ORDERED: oxyCODONE 5 MG TABLET PO STA (21:00)
[2019-05-30] MEDS ORDERED: POTASSIUM CHLORIDE 20 MEQ TABLET PO ONE (21:01)
[2019-05-30 21:40] LABS: BILIRUBIN,URINE NEGATIVE (NEGATIVE); GLUCOSE, URINE (UA) NEGATIVE (NEGATIVE); KETONES,URINE (UA) NEGATIVE (NEGATIVE); LEUKOCYTE ESTERASE, URINE NEGATIVE (NEGATIVE); NITRITE,URINE NEGATIVE (NEGATIVE); OCCULT BLOOD,URINE NEGATIVE (NEGATIVE); PROTEIN,URINE NEGATIVE (NEGATIVE); UROBILINOGEN,URINE 0.2 (NORMAL) E.U./dL (NORMAL)
[2019-05-30 21:41] LABS: CLARITY,URINE CLEAR (CLEAR)
--- NOTE | 2019-05-30 22:24 | Ultrasound Report ---
Reason: left leg swelling (more than right) postop Procedure Date: 05/30/2019 Accession Number: [id number] / [id number] Procedure: US - Duplex Ext Veins Left CPT Code: FULL RESULT: EXAM: LEFT LOWER EXTREMITY VENOUS ULTRASOUND EXAM DATE: 05/30/2019 09:45 PM. CLINICAL HISTORY: Left leg swelling (more than right) postop. COMPARISON: ABDOMEN/PELVIS W/ 05/20/2019 11:18 AM. TECHNIQUE: Real-time sonographic vascular imaging was performed by the legal support assistant through the lower extremity utilizing both color-flow and Doppler spectral analysis. Multiple brand representative static images were saved for review. FINDINGS: Common Femoral Vein (CFV): No evidence of thrombus. CFV-GSV Junction: No evidence of thrombus. Profunda Femoral Vein (PFV): No evidence of thrombus. Femoral Vein (FV) Prox: No evidence of thrombus. Femoral Vein (FV) Mid: No evidence of thrombus. Femoral Vein (FV) Dist: No evidence of thrombus. Popliteal Vein: No evidence of thrombus. Calf veins: Suboptimally visualized. Other: None. IMPRESSION: No evidence for deep venous thrombosis. Suboptimally visualized calf veins.
[2019-05-30 23:37] VITALS: BP 108/69
== END 2019-05-30 23:38 | disposition home or self-care (01) ==
LOC: ED 19:42
DX: R60.0 Localized edema (principal); R11.0 Nausea; Z90.49 Acquired absence of other specified parts of digestive tract; Z48.03 Encounter for change or removal of drains
CPT/HCPCS: 36415; 80053; 81003; 83690; 83735; 83880; 85025; 93971; 99283; 99284; A9270; 81001; 87086

== ENCOUNTER 2019-06-07 20:55 | Inpatient (IN) | payer OTHER ==
--- NOTE | 2019-06-07 21:30 | ED Physician Documentation ---
PD HPI ABD PAIN - Stated complaint Stated Complaint: ABD PX/POST OP - Chief complaint Chief Complaint: Abd Pain - History obtained from History obtained from: Patient, Family - History of Present Illness Timing - onset: Today Timing - duration: Hours Timing - details: Gradual onset, Still present Quality: Sharp, Pain Location: RUQ Radiation: Right flank Improved by: Laying still Worsened by: Moving, Breathing, Position, Palpation Associated symptoms: No: Nausea, Vomiting, Diarrhea, Constipation Similar symptoms before: Diagnosis (cholecystitis) Recently seen: Surgery - Additional information Additional information: 59-year-old female with 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 Today she is complaining of right upper quadrant pain that is severe abdominal bloating and a pain in her right flank that is stabbing in nature. She is bubbling in tears and moaning in pain. She appears quite dramatic in her presentation. Review of Systems Constitutional: denies: Fever, Chills Eyes: denies: Decreased vision Ears: denies: Ear pain Nose: denies: Rhinorrhea / runny nose, Congestion Throat: denies: Sore throat Cardiac: denies: Chest pain / pressure, Palpitations, Pedal edema, Calf pain Respiratory: denies: Dyspnea, Cough GI: reports: Abdominal Pain : denies: Dysuria, Frequency Skin: denies: Rash Musculoskeletal: reports: Back pain. 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 : Kidney stones HEENT: None Psych: Depression Musculoskeletal: Other Derm: None - Past Surgical History Past Surgical History: Yes General: Cholecystectomy /SOFTWARE ENGINEER DEVELOPER: Hysterectomy, Oophrectomy, Breast reduction - Present Medications Home Medications: Ambulatory Orders Medication Instructions Recorded Confirmed Zolpidem [Ambien] 10 mg PO HS 10/28/13 05/20/19 Alprazolam [Alprazolam Xr] 2 mg PO DAILY #10 tab.er.24h 10/13/17 05/20/19 Irbesartan 75 mg PO DAILY 05/06/19 05/20/19 Ketotifen Fumarate [Zaditor] 5 ml OP DAILY 05/06/19 05/06/19 Minocycline HCl 100 mg PO BID 05/06/19 05/20/19 Dextroamphetamine/Amphetamine 20 mg PO BID 05/20/19 05/20/19 [Dextroamp-Amphet ER 20 mg Cap] Estradiol [Vivelle-Dot] 1 patch TD MOTH 05/20/19 05/20/19 Pantoprazole [Protonix] 40 mg PO DAILY 05/20/19 05/20/19 Sertraline HCl [Zoloft] 100 mg PO DAILY 05/20/19 05/20/19 Thyroid,Pork [Reading Tutor Thyroid] 15 mg PO DAILY 05/20/19 05/20/19 hydrOXYzine HCl [Hydroxyzine HCl] 25 mg PO BID PRN 05/20/19 05/20/19 Acetaminophen [Tylenol] 650 mg PO Q4HR PRN tablet 05/22/19 Loratadine [Claritin] 10 mg PO DAILY tablet 05/22/19 Metoprolol Succinate [Toprol Xl] 50 mg PO DAILY tablet 05/22/19 hydrALAZINE [Apresoline] 10 mg PO DAILY tablet 05/22/19 oxyCODONE [Roxicodone] 5 mg PO Q4HR PRN #20 tablet 05/22/19 - Allergies Allergies/Adverse Reactions: Allergies Allergy/AdvReac Type Severity Reaction Status Date / Time adhesive Allergy Intermediate Rash Verified 06/07/19 21:03 lorazepam [From Ativan] Allergy jittery Verified 06/07/19 21:03 aripiprazole [From Abilify] AdvReac Severe Anxiety Verified 06/07/19 21:03 cimetidine [From Tagamet] AdvReac Severe Anxiety Verified 06/07/19 21:03 cimetidine HCl * AdvReac Severe Anxiety Verified 06/07/19 21:03 [From Tagamet] diphenhydramine HCl * AdvReac Severe Anxiety Verified 06/07/19 21:03 [From Benadryl] trazodone AdvReac Severe Migraine Verified 06/07/19 21:03 Headache morphine sulfate * AdvReac Nausea Verified 06/07/19 21:03 [From Mari] artificial sweetener AdvReac Intermediate mouth sores Uncoded 06/07/19 21:03 - Social History Does the pt smoke?: No Smoking Status: Never smoker Does the pt drink ETOH?: No Does the pt have substance abuse?: No - Immunizations Immunizations are current?: Yes - POLST Patient has POLST: No PD ED PE NORMAL - Vitals Vital signs reviewed: Yes (tachypneic and systolic hypertension ) - General General: Alert and oriented X 3, Well developed/nourished, Other (moaning in pain is able to stop to answer. ) - HEENT HEENT: Atraumatic, PERRL, EOMI - Neck Neck: Supple, no meningeal sign - Cardiac Cardiac: RRR, No murmur - Respiratory Respiratory: No respiratory distress, Clear bilaterally - Abdomen Abdomen: Soft, Other (Tenderness in the RUQ and the right CVA no LLQ tenderness. There is no gaurding to the tenderness and there is dramatic pain behavior. ) - Back Back: No CVA TTP, No spinal TTP - Derm Derm: Normal color, Warm and dry, No rash - Extremities Extremities: No deformity, No edema - Neuro Neuro: Alert and oriented X 3, billboard mechanic 2-12 intact, No motor deficit, No sensory deficit, Normal speech Eye Opening: Spontaneous Motor: Obeys Commands Verbal: Oriented GCS Score: 15 - Psych Psych: Other (mood is defeated and the affect is sad and labile. ) Results - Vitals Vitals: Vital Signs - 24 hr 06/07/19 06/07/19 06/07/19 21:00 21:05 22:25 Temperature 36.4 C L Heart Rate 93 88 88 Respiratory 28 H 16 Rate Blood Pressure 189/75 H 136/57 H O2 Saturation 97 100 94 Oxygen O2 Source [] Room air O2 Source [] Room air O2 Source Room air - Labs Labs: Laboratory Tests 06/07/19 06/07/19 06/07/19 21:09 21:09 21:09 WBC 13.7 H RBC 4.18 L Hgb 12.6 Hct 38.0 MCV 90.9 MCH 30.1 MCHC 33.2 RDW 14.1 Plt Count 271 MPV 12.8 H Neut # (Auto) 9.0 H Lymph # (Auto) 3.6 H [place] # (Auto) 0.8 Eos # (Auto) 0.2 Baso # (Auto) 0.1 Absolute Nucleated RBC 0.00 Nucleated RBC % 0.0 Sodium 141 Potassium 4.3 Chloride 103 Carbon Dioxide 24 Anion Gap 14.0 H BUN 22 H Creatinine 0.9 Estimated GFR (MDRD) 64 L Glucose 133 H Lactic Acid Calcium 9.5 Total Bilirubin 0.5 AST 87 H ALT 51 Alkaline Phosphatase 101 Troponin I < 0.04 Total Protein 7.4 Albumin 3.6 Globulin 3.8 Albumin/Globulin Ratio 0.9 L Lipase 210 H 06/07/19 21:43 WBC RBC Hgb Hct MCV MCH MCHC RDW Plt Count MPV Neut # (Auto) Lymph # (Auto) [place] # (Auto) Eos # (Auto) Baso # (Auto) Absolute Nucleated RBC Nucleated RBC % Sodium Potassium Chloride Carbon Dioxide Anion Gap BUN Creatinine Estimated GFR (MDRD) Glucose Lactic Acid 1.9 Calcium Total Bilirubin AST ALT Alkaline Phosphatase Troponin I Total Protein Albumin Globulin Albumin/Globulin Ratio Lipase - Rads (name of study) CT ab/pel w/o Radiology: Prelim report reviewed (Impression: 1. No urolithiasis or obstructive uropathy seen bilaterally. 2. Possible subtle pancreatic edema, especially at the head of the pancreas. This could represent acute uncomplicated pancreatitis. 3. Prominent fatty liver.), EMP read indepedently, See rad report Procedures - Bedside sono Bedside sono by EMP: With use of bedside ultrasound the right kidney is imaged it is sonographically nontender there is some evidence of hydronephrosis. PD MEDICAL DECISION MAKING - ED course Complexity details: reviewed old records, reviewed results, re-evaluated patient, considered differential, d/w patient, d/w family ED course: 59 y/o female with acute epigastric pain 2 days after removal of drain has an elevated lipase and a swollen pancreas on CT scan without abscess. This does not appear to be a post op complication but pancreatitis. For some reason. She has some improvement with IV diluadid and zofran. Departure - Departure Disposition: [facility] DC/Xfer Clinical Impression: Pancreatitis Qualifiers: Chronicity: acute Pancreatitis type: unspecified pancreatitis type Acute pancreatitis complication: unspecified Qualified Code(s): K85.90 - Acute pancreatitis without necrosis or infection, unspecified Condition: Stable
[2019-06-07] MEDS ORDERED: HYDROmorphone 1 MG/ML CARPUJECT IVP STA ×2 (21:33→23:00)
[2019-06-07] MEDS ORDERED: ONDANSETRON 4 MG/2 ML VIAL IVP STA ×2 (21:33→23:00)
[2019-06-07 21:38] LABS: BASOPHILS # (AUTO) 0.1 10^3/uL (0.0-0.1); BASOPHILS % (AUTO) 0.5 %; EOSINOPHILS # (AUTO) 0.2 10^3/uL (0.0-0.7); EOSINOPHILS % (AUTO) 1.5 %; HGB - HEMOGLOBIN 12.6 g/dL (12.0-16.0); LYMPHOCYTES # (AUTO) 3.6 10^3/uL (1.5-3.5); LYMPHOCYTES % (AUTO) 26.2 %; MEAN CORPUSCULAR HEMOGLOBIN 30.1 pg (27.0-31.0); MEAN CORPUSCULAR HGB CONC 33.2 g/dL (32.0-36.0); MEAN CORPUSCULAR VOLUME 90.9 fL (81.0-99.0); MEAN PLATELET VOLUME 12.8 fL (7.9-10.8); MONOCYTES # (AUTO) 0.8 10^3/uL (0.0-1.0); MONOCYTES % (AUTO) 5.7 %; NEUTROPHILS % (AUTO) 65.6 %; PLT - PLATELET COUNT 271 10^3/uL (130-450); RED BLOOD COUNT 4.18 10^6/uL (4.20-5.40); RED CELL DISTRIBUTION WIDTH 14.1 % (12.0-15.0); WHITE BLOOD COUNT 13.7 x10^3/uL (4.8-10.8)
[2019-06-07 21:51] LABS: ALBUMIN 3.6 g/dL (3.2-5.5); ALBUMIN/GLOBULIN RATIO 0.9 (1.0-2.2); BILIRUBIN,TOTAL 0.5 mg/dL (0.2-1.0); CALCIUM 9.5 mg/dL (8.5-10.3); CREATININE 0.9 mg/dL (0.4-1.0); TOTAL PROTEIN 7.4 g/dL (6.7-8.2)
--- NOTE | 2019-06-07 22:17 | CT Report ---
Reason: RUQ flank pain Procedure Date: 06/07/2019 Accession Number: [id number] / [id number] Procedure: CT - Abdomen/Pelvis WO CPT Code: FULL RESULT: EXAM: CT ABDOMEN AND PELVIS (CT KUB) EXAM DATE: 06/07/2019 09:58 PM. CLINICAL HISTORY: RUQ flank pain. COMPARISONS: ABDOMEN/PELVIS W/ 05/20/2019 11:18 AM. TECHNIQUE: Routine axial helical CT imaging was performed through the abdomen and pelvis without IV contrast. Reconstructions: Coronal and sagittal. In accordance with CT protocol optimization, one or more of the following dose reduction techniques were utilized for this exam: automated exposure control, adjustment of mA and/or KV based on patient size, or use of iterative reconstructive technique. FINDINGS: Lung Bases: Unremarkable. Right Kidney/Ureter: No stones, hydronephrosis, or hydroureter. No perinephric fat stranding. Left Kidney/Ureter: No stones, hydronephrosis, or hydroureter. No perinephric fat stranding. Other Solid Organs: Prominent fatty liver. Spleen and adrenals are unremarkable. Possible mild pancreatic edema, especially at the head of the pancreas. Gallbladder/Bile Ducts: Status post cholecystectomy. Peritoneal Cavity: Duodenal diverticulum. No bowel obstruction seen. No free air or free fluid. There are colonic diverticula. No diverticulitis is identified. No lymphadenopathy is seen. Appendix appears normal. Pelvic Organs: The uterus is not seen. Visualized pelvic organs are unremarkable. Vasculature: Mild atherosclerosis. No aortic aneurysm. Other: Mild scoliosis. Mild grade 1 degenerative spondylolisthesis at L4-L5 and L5-S1. IMPRESSION: 1. No urolithiasis or obstructive uropathy seen bilaterally. 2. Possible subtle pancreatic edema, especially at the head of the pancreas. This could represent acute uncomplicated pancreatitis. 3. Prominent fatty liver. RADIA
[2019-06-07] MEDS ORDERED: SODIUM CHLORIDE 0.9% 1,000 ML IV ONE (22:50)
[2019-06-07 22:53] LABS: BILIRUBIN,URINE NEGATIVE (NEGATIVE); GLUCOSE, URINE (UA) NEGATIVE (NEGATIVE); KETONES,URINE (UA) NEGATIVE (NEGATIVE); LEUKOCYTE ESTERASE, URINE TRACE (NEGATIVE); NITRITE,URINE NEGATIVE (NEGATIVE); OCCULT BLOOD,URINE NEGATIVE (NEGATIVE); PH,URINE 6.5 PH (5.0-7.5); PROTEIN,URINE NEGATIVE (NEGATIVE); UROBILINOGEN,URINE 0.2 (NORMAL) E.U./dL (NORMAL)
[2019-06-07 23:03] LABS: CLARITY,URINE CLEAR (CLEAR)
[2019-06-07 23:18] LABS: RBC,URINE 0-5 /HPF (0-5)
[2019-06-07 23:19] LABS: BACTERIA,URINE Rare /HPF (None Seen); SQUAMOUS EPITHELIAL CELL,UR FEW Squamous (<= Few)
--- NOTE | 2019-06-07 23:19 | HISTORY & PHYSICAL EXAMINATION ---
Chief Complaint - Chief Complaint Chief Complaint: epigastric abdominal pain History of Present Illness - Admitted From [facility]:: [facility] ED - History Obtained From Records Reviewed: yes History obtained from: patient - History of Present Illness HPI Comment/Other: Patient was seen on 06/07/19 at 23:00pm. Patient is a 59 y/o female who presented to the ED with complain of worsening epigastric pain. It has been slowly creeping up over the past few days and got worse to today to the point where she could not stop crying. She was brought in by her . She has been nauseous and vomiting. She was dry heaving today and had no appetite. She also reported a low grade fever with a reported Tmax of 100.4. She denied chest pain or WINSTON. She recently underwent a cholecystectomy on 05/20/19. In the ED work up included a CT of the abd/pelvis which showed edema around the head of the pancreas, suggesting pancreatitis. As a result she is being admitted for further work up. She has not had any recent trauma or travel. She denies alcohol use. She recently stopped using monocycline Other history on her: She had steroid injections to her scalp for the first time today, done by dermatology to address alopecia. 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 balding. ?chronic fungal infection on her scalp) MRSA Hx?: No Other Past Medical History: Nicole-Danlos Syndrome vs Mixed Connective Tissue Disorder, Insomnia - Past Surgical History General: reports: Cholecystectomy /CITY PLANNING ENGINEER: reports: Hysterectomy, Oophrectomy, Breast reduction - Family & Social History Family History Comment/Other: Mother: Diabetes. Father: Patient has no knowledge of father's medical illnesses. Has 2 brothers. One from AIDS. The other brother is healthy. Has 3 children: Amongst the 3 there is developmental delay, psychosis and thyroid disease Social History Notes: She does not smoke. Rare alcohol consumption. 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 No illicit drug use - POLST Patient has POLST: No POLST Status: Full Code Meds/Allgy - Home Medications Home Medications: Ambulatory Orders Medication Instructions Recorded Confirmed Zolpidem [Ambien] 10 mg PO HS 10/28/13 05/20/19 Alprazolam [Alprazolam Xr] 2 mg PO DAILY #10 tab.er.24h 10/13/17 05/20/19 Irbesartan 75 mg PO DAILY 05/06/19 05/20/19 Ketotifen Fumarate [Zaditor] 5 ml OP DAILY 05/06/19 05/06/19 Minocycline HCl 100 mg PO BID 05/06/19 05/20/19 Dextroamphetamine/Amphetamine 20 mg PO BID 05/20/19 05/20/19 [Dextroamp-Amphet ER 20 mg Cap] Estradiol [Vivelle-Dot] 1 patch TD MOTH 05/20/19 05/20/19 Pantoprazole [Protonix] 40 mg PO DAILY 05/20/19 05/20/19 Sertraline HCl [Zoloft] 100 mg PO DAILY 05/20/19 05/20/19 Thyroid,Pork [Delivery Mgr Thyroid] 15 mg PO DAILY 05/20/19 05/20/19 hydrOXYzine HCl [Hydroxyzine HCl] 25 mg PO BID PRN 05/20/19 05/20/19 Acetaminophen [Tylenol] 650 mg PO Q4HR PRN tablet 05/22/19 Loratadine [Claritin] 10 mg PO DAILY tablet 05/22/19 Metoprolol Succinate [Toprol Xl] 50 mg PO DAILY tablet 05/22/19 hydrALAZINE [Apresoline] 10 mg PO DAILY tablet 05/22/19 oxyCODONE [Roxicodone] 5 mg PO Q4HR PRN #20 tablet 05/22/19 - Allergies Allergies/Adverse Reactions: Allergies Allergy/AdvReac Type Severity Reaction Status Date / Time adhesive Allergy Intermediate Rash Verified 07/17/19 21:03 lorazepam [From Ativan] Allergy jittery Verified 06/07/19 21:03 aripiprazole [From Abilify] AdvReac Severe Anxiety Verified 06/07/19 21:03 cimetidine [From Tagamet] AdvReac Severe Anxiety Verified 06/07/19 21:03 cimetidine HCl * AdvReac Severe Anxiety Verified 06/07/19 21:03 [From Tagamet] diphenhydramine HCl * AdvReac Severe Anxiety Verified 06/07/19 21:03 [From Benadryl] trazodone AdvReac Severe Migraine Verified 06/07/19 21:03 Headache morphine sulfate * AdvReac Nausea Verified 06/07/19 21:03 [From Mari] artificial sweetener AdvReac Intermediate mouth sores Uncoded 06/07/19 21:03 Review of Systems - Constitutional Constitutional: reports: Fever, Chills, Poor appetite, Other (alopecia). denies: Weakness - Eyes Eyes: denies: Blurred vision, Vision loss, Dipolpia - Ears, Nose & Throat Ears, Nose & Throat: denies: Nasal pain, Sore throat, Hoarseness - Cardiovascular Cariovascular: denies: Chest pain, Edema, Syncope, Exertional dyspnea, Decr. exercise tolerance - Respiratory Respiratory: denies: Wheezing, SOB at rest, SOB with exertion - Gastrointestinal Gastrointestinal: reports: Abdominal pain, Nausea. denies: Abdominal distention, Constipation, Diarrhea, Vomiting, Coffee grounds emesis, Reflux/heartburn - Genitourinary Genitourinary: reports: Dysuria. denies: Frequency, Urgency, Hematuria, Flank pain - Musculoskeletal Musculoskeletal: denies: Muscle pain, Back pain, Muscle aches, Joint pain - Integumentary Integumentary: denies: Rash, Pruritis, Lesions, Dryness - Neurological Neurological: denies: General weakness, Focal weakness, Headache, Dizziness, Numbness - Psychiatric Psychiatric: denies: Depression, Anxiety - Endocrine Endocrine: denies: Polyuria, Polydypsia - Hematologic/Lymphatic Hematologic/Lymphatic: denies: Anemia, Bruising, Petechiae Prior Level of Functionality: She is independent of activities of daily living Exam - Vital Signs Vital Signs: Vital Signs x48h Temp Pulse Resp BP Pulse Ox 06/07/19 23:14 90 14 111/50 L 92 06/07/19 22:25 88 16 136/57 H 94 06/07/19 21:05 88 100 06/07/19 21:00 36.4 C L 93 28 H 189/75 H 97 - Physical Exam General Appearance: positive: Alert, Moderate distress, Other (alopecia/ balding) Eyes Bilateral: positive: Normal inspection, PERRL, EOMI ENT: positive: ENT inspection nml, No signs of dehydration Neck: positive: Nml inspection, No JVD, Trachea midline Respiratory: positive: Chest non-tender, No respiratory distress, Breath sounds nml. negative: Wheezes, Rales, Rhonchi Cardiovascular: positive: Regular rate & rhythm, No murmur Abdomen: positive: Nml bowel sounds, No distention, Tenderness Skin: positive: Color nml, No rash, Warm, Dry Extremities: positive: Non-tender, Full ROM, Nml appearance, No pedal edema Neurologic/Psychiatric: positive: Oriented x3, CN's nml (2-12), Motor nml Conclusion/Plan - Problem List (1) Pancreatitis Conclusion/Plan: Etiology undetermined NPO. Pain management. IV hydration with normal saline MRCP. Lipid panel Will consult general surgery for follow up given recent cholecystectomy Qualifiers: Chronicity: acute Pancreatitis type: unspecified pancreatitis type Acute pancreatitis complication: unspecified Qualified Code(s): K85.90 - Acute pancreatitis without necrosis or infection, unspecified (2) Hypertension Conclusion/Plan: On metoprolol succinate, irbesartan and hydralazine (3) Depression Conclusion/Plan: On fluoxetine (4) Insomnia Conclusion/Plan: On zolpidem (5) GERD (gastroesophageal reflux disease) Conclusion/Plan: Protonix ordered (6) Leukocytosis Conclusion/Plan: Suspect UTI Blood and urine culture pending Will recheck CBC in the am. If worsening or patient febrile, will consider antibiotics Patient has been on extensive period of antibiotics so far for various dental and skin problems. Specifically doxycycline and augmentin. She just stopped minocycline today. (7) Hypothyroidism Conclusion/Plan: On [place] thyroid 15mcg qam - Lab Results Fish Bones: 06/07/19 21:09 06/07/19 21:09 Core Measures - Anticipated LOS I expect patient to be DC'd or transferred within 96 hours.: Yes - DVT/VTE - Prophylaxis VTE/DVT Device ordered at admit?: Yes
[2019-06-08] MEDS: SODIUM CHLORIDE FLUSH 0.9% 10 ML SYRINGE IVP SCH ×3 (00:03→16:53)
[2019-06-08] MEDS ORDERED: PROCHLORPERAZINE 10 MG/2 ML VIAL IVP PRN (01:30)
[2019-06-08] MEDS: HYDROmorphone 0.5 MG/0.5 ML SYRINGE IVP PRN ×3 (01:47→09:18)
[2019-06-08] MEDS: PROMETHAZINE INJ 25 MG in SODIUM CHLORIDE 0.9% 50 ML IV PRN ×3 (02:39→18:04)
[2019-06-08] MEDS: SODIUM CHLORIDE 0.9% 1,000 ML IV SCH ×3 (02:39→18:15)
[2019-06-08 05:28] LABS: BASOPHILS # (AUTO) 0.1 10^3/uL (0.0-0.1); BASOPHILS % (AUTO) 0.6 %; EOSINOPHILS # (AUTO) 0.2 10^3/uL (0.0-0.7); EOSINOPHILS % (AUTO) 1.4 %; HGB - HEMOGLOBIN 10.7 g/dL (12.0-16.0); LYMPHOCYTES # (AUTO) 2.4 10^3/uL (1.5-3.5); LYMPHOCYTES % (AUTO) 22.4 %; MEAN CORPUSCULAR HEMOGLOBIN 30.2 pg (27.0-31.0); MEAN CORPUSCULAR HGB CONC 32.9 g/dL (32.0-36.0); MEAN CORPUSCULAR VOLUME 91.8 fL (81.0-99.0); MEAN PLATELET VOLUME 12.3 fL (7.9-10.8); MONOCYTES # (AUTO) 0.7 10^3/uL (0.0-1.0); MONOCYTES % (AUTO) 6.8 %; NEUTROPHILS # (AUTO) 7.5 10^3/uL (1.5-6.6); NEUTROPHILS % (AUTO) 68.3 %; PLT - PLATELET COUNT 198 10^3/uL (130-450); RED BLOOD COUNT 3.54 10^6/uL (4.20-5.40); RED CELL DISTRIBUTION WIDTH 14.1 % (12.0-15.0); WHITE BLOOD COUNT 10.9 x10^3/uL (4.8-10.8)
[2019-06-08 05:44] LABS: CALCIUM 8.6 mg/dL (8.5-10.3); CREATININE 0.8 mg/dL (0.4-1.0)
[2019-06-08 05:49] LABS: CHOL/HDL RATIO 8.2 (<4.4); CHOLESTEROL 164 mg/dL; HDL CHOLESTEROL 20 mg/dL
[2019-06-08] MEDS: SODIUM CHLORIDE FLUSH 0.9% 10 ML SYRINGE IVP PRN (06:05)
[2019-06-08] MEDS: PANTOPRAZOLE 40 MG VIAL IVP SCH (06:05)
[2019-06-08 06:40] LABS: LDL CHOLESTEROL,DIRECT 51 mg/dL; LDLD/HDL RATIO 2.6 (<4.4)
[2019-06-08] MEDS: POLYETHYLENE GLYCOL 3350 17 GM PACKET PO SCH (08:30)
[2019-06-08] MEDS ORDERED: GADOBUTROL 10 MMOL/10 ML VIAL ONE (09:15)
[2019-06-08] MEDS ORDERED: SODIUM CHLORIDE 0.9% 50 ML IV ONE (09:26)
[2019-06-08] MEDS ORDERED: PROMETHAZINE 12.5 MG SUPP PR PRN (10:27)
[2019-06-08] MEDS: HYDROmorphone 1 MG/ML CARPUJECT IVP PRN ×5 (10:48→20:39)
[2019-06-08] MEDS ORDERED: METOCLOPRAMIDE 10 MG/2 ML VIAL IVP SCH (12:00)
[2019-06-08 12:12] LABS: MUDS CUTOFF CONCENTRATIONS CUTOFF CONC BELOW:
[2019-06-08 12:47] LABS: AMPHETAMINE SCREEN,URINE POSITIVE (NEGATIVE); BENZODIAZEPINES SCREEN, URINE POSITIVE (NEGATIVE); COCAINE SCREEN URINE NEGATIVE (NEGATIVE); METHADONE SCREEN, URINE NEGATIVE (NEGATIVE); METHAMPHETAMINES SCREEN, URINE NEGATIVE (NEGATIVE); OPIATE SCREEN, URINE NEGATIVE (NEGATIVE); OXYCODONE SCREEN, URINE POSITIVE (NEGATIVE); PROPOXYPHENE SCREEN, URINE NEGATIVE (NEGATIVE); TRICYCLIC ANTIDEPRESSANT,URINE NEGATIVE (NEGATIVE)
[2019-06-08 13:29] LABS: BASOPHILS # (AUTO) 0.1 10^3/uL (0.0-0.1); BASOPHILS % (AUTO) 0.5 %; EOSINOPHILS # (AUTO) 0.2 10^3/uL (0.0-0.7); EOSINOPHILS % (AUTO) 1.4 %; HGB - HEMOGLOBIN 11.3 g/dL (12.0-16.0); LYMPHOCYTES # (AUTO) 2.5 10^3/uL (1.5-3.5); MEAN CORPUSCULAR HEMOGLOBIN 30.2 pg (27.0-31.0); MEAN CORPUSCULAR HGB CONC 32.4 g/dL (32.0-36.0); MEAN CORPUSCULAR VOLUME 93.3 fL (81.0-99.0); MEAN PLATELET VOLUME 12.8 fL (7.9-10.8); MONOCYTES # (AUTO) 0.9 10^3/uL (0.0-1.0); NEUTROPHILS # (AUTO) 8.6 10^3/uL (1.5-6.6); NEUTROPHILS % (AUTO) 70.6 %; PLT - PLATELET COUNT 247 10^3/uL (130-450); RED BLOOD COUNT 3.74 10^6/uL (4.20-5.40); RED CELL DISTRIBUTION WIDTH 14.3 % (12.0-15.0); WHITE BLOOD COUNT 12.2 x10^3/uL (4.8-10.8)
[2019-06-08 13:55] LABS: HB2 TOTAL 11.9 g/dL; HEMOGLOBIN A1C 0.53 g/dL; HEMOGLOBIN A1C % 6.2 % (4.6-6.2)
[2019-06-08] MEDS ORDERED: oxyCODONE/ACET 5/325 Prepack 4 PO PRN (16:03)
[2019-06-08] MEDS ORDERED: HYDROXYZINE HCL 25 MG PO PRN (16:03)
[2019-06-08] MEDS: METOCLOPRAMIDE 10 MG/2 ML VIAL IVP SCH (18:31)
[2019-06-08] MEDS: METOPROLOL SUCCINATE 50 MG TABLET PO SCH (20:40)
[2019-06-08] MEDS: ZOLPIDEM 5 MG TABLET PO SCH (20:40)
[2019-06-08] MEDS ORDERED: ALPRAZolam 0.25 MG TABLET PO SCH (21:00)
[2019-06-08] MEDS ORDERED: POLYETHYLENE GLYCOL 3350 17 GM PACKET PO STA (21:28)
--- NOTE | 2019-06-08 21:38 | PROVIDER PROGRESS NOTE ---
Subjective - Prog Note Date Prog Note Date: 06/08/19 Prog Note Time: 21:29 - Subjective Pt reports feeling: Improved Subjective: Kiesha complains of ongoing RUQ abdominal pain. She denies chest pain, nausea, vomiting, diarrhea,Confusion,Dizziness, headaches, a new rash, or a new cough. Current Medications - Current Medications Current Medications: Active Medications Alprazolam (Xanax) 2 mg PO DAILY [facility] Alprazolam (Xanax) 1 mg PO QPM [facility] Last Admin: 06/08/19 20:39 Dose: 1 mg Fluoxetine HCl (Prozac) 20 mg PO DAILY [facility] Hydromorphone HCl (Dilaudid Inj Carp) 1 mg IVP Q2H PRN PRN Reason: Pain 8 to 10 Last Admin: 06/08/19 20:39 Dose: 1 mg Sodium Chloride (Normal Saline 0.9%) 1,000 mls @ 125 mls/hr IV .Q8H [facility] Last Admin: 06/08/19 18:15 Dose: 125 mls/hr Promethazine HCl 25 mg/ Sodium (Chloride) 51 mls @ 100 mls/hr IV Q6H PRN PRN Reason: Nausea / Vomiting Last Admin: 06/08/19 18:04 Dose: 100 mls/hr Metoclopramide HCl (Reglan Inj) 5 mg IVP Q6HR [facility] Last Admin: 06/08/19 18:31 Dose: 5 mg Metoprolol Succinate (Toprol Xl) 50 mg PO QPM [facility] Last Admin: 06/08/19 20:40 Dose: 50 mg Ondansetron HCl (Zofran Inj) 4 mg IVP Q6HR PRN PRN Reason: Nausea / Vomiting Oxycodone HCl (Roxicodone) 5 mg PO Q4HR PRN PRN Reason: PAIN Pantoprazole Sodium (Protonix) 40 mg IVP QDAC [facility] Last Admin: 06/08/19 06:05 Dose: 40 mg Patient Own Med ( Hydroxyzine Hcl 25mg ) 1 each PO BID PRN PRN Reason: Allergy Symptoms Patient Own Med ( (Irbesartan 75mg)) 1 each PO HS [facility] Patient Own Med ( ([place] Thyroid 15mg)) 1 each PO DAILY [facility] Patient Own Med ( (Ketotifen Fum 1mg)) 1 each PO TID [facility] Polyethylene Glycol (Miralax) 17 gm PO DAILY [facility] Last Admin: 06/08/19 08:30 Dose: 17 gm Promethazine HCl (Phenergan Supp) 12.5 mg [place] TID PRN PRN Reason: Nausea / Vomiting Sodium Chloride (Normal Saline Flush 0.9%) 10 ml IVP PRN PRN PRN Reason: NEEDED PER PROVIDER ORDERS Last Admin: 06/08/19 06:05 Dose: 10 ml Sodium Chloride (Normal Saline Flush 0.9%) 10 ml IVP 0100,0900,1700 [facility] Last Admin: 06/08/19 16:53 Dose: Not Given Zolpidem Tartrate (Ambien) 5 mg PO [facility] Last Admin: 06/08/19 20:40 Dose: 5 mg RX: Zolpidem [Ambien] 5 mg PO HS 10/28/13 RX: Irbesartan 75 mg PO DAILY 05/06/19 RX: Dextroamphetamine/Amphetamine [Dextroamp-Amphet ER 20 mg Cap] 20 mg PO BID 05/20/19 RX: Estradiol [Vivelle-Dot] 1 patch TD MOTH 05/20/19 RX: Pantoprazole [Protonix] 40 mg PO DAILY 05/20/19 RX: hydrOXYzine HCl [Hydroxyzine HCl] 25 mg PO BID PRN 05/20/19 Alprazolam [Alprazolam Xr] 1 mg PO DAILY PM 06/08/19 RX: Fluoxetine HCl 20 mg PO DAILY 06/08/19 RX: Metoprolol Succinate [Toprol Xl] 50 mg PO DAILY PM 06/08/19 Thyroid,Pork [[place] Thyroid] 15 mg PO DAILY 06/08/19 oxyCODONE/ACET 5/325 [Percocet 5 mg/325 mg] 1 tab PO Q4H PRN 06/08/19 Objective - Vital Signs/Intake & Output Reviewed Vital Signs: Yes Vital Signs: Vital Signs x48h Temp Pulse Resp BP Pulse Ox 06/08/19 19:17 36.5 C 91 18 115/57 L 97 06/08/19 16:00 37.0 C 88 18 118/75 96 Intake & Output: Intake & Output 06/05/19 06/06/19 06/07/19 06/08/19 23:59 23:59 23:59 23:59 Intake Total 3033.25 Output Total 1075 Balance 1958.25 - Objective General Appearance: positive: Alert, Moderate distress, Lethargic Eyes Bilateral: positive: PERRL ENT: positive: Pharynx nml, No signs of dehydration - Lab Results Fish Bones: 06/09/19 05:36 06/09/19 05:36 Other Labs: Lab Results x24hrs 06/08/19 06/08/19 06/08/19 Range/Units 13:20 13:20 13:20 WBC (4.8-10.8) x10^3/uL RBC (4.20-5.40) 10^6/uL Hgb (12.0-16.0) g/dL Hct (37.0-47.0) % MCV (81.0-99.0) fL MCH (27.0-31.0) pg MCHC (32.0-36.0) g/dL RDW (12.0-15.0) % Plt Count (130-450) 10^3/uL MPV (7.9-10.8) fL Neut # (Auto) (1.5-6.6) 10^3/uL Lymph # (Auto) (1.5-3.5) 10^3/uL [place] # (Auto) (0.0-1.0) 10^3/uL Eos # (Auto) (0.0-0.7) 10^3/uL Baso # (Auto) (0.0-0.1) 10^3/uL Absolute Nucleated RBC x10^3/uL Nucleated RBC % /100WBC Sodium (135-145) mmol/L Potassium (3.5-5.0) mmol/L Chloride (101-111) mmol/L Carbon Dioxide (21-32) mmol/L Anion Gap (6-13) BUN (6-20) mg/dL Creatinine (0.4-1.0) mg/dL Estimated GFR (MDRD) (>89) Glucose (70-100) mg/dL Glycated Hemoglobin 6.2 (4.6-6.2) % Estim Average Glucose 131 H (70-100) Lactic Acid 1.4 (0.5-2.2) mmol/L Calcium (8.5-10.3) mg/dL Total Bilirubin (0.2-1.0) mg/dL GGT (8-38) IU/L AST (10-42) IU/L ALT (10-60) IU/L Alkaline Phosphatase (42-121) IU/L Troponin I (<0.49) ng/mL Total Protein (6.7-8.2) g/dL Albumin (3.2-5.5) g/dL Globulin (2.1-4.2) g/dL Albumin/Globulin Ratio (1.0-2.2) Triglycerides ( - 149) mg/dL Cholesterol ( - 199) mg/dL LDL Cholesterol Direct ( - 129) mg/dL LDL Cholesterol, Calc VLDL Cholesterol HDL Cholesterol (60 - ) mg/dL LDL/HDL Ratio dLDL/HDL Ratio (<4.4) Cholesterol/HDL Ratio (<4.4) Lipase (22-51) U/L TSH 3.71 (0.34-5.60) uIU/mL Urine Color Urine Clarity (CLEAR) Urine pH (5.0-7.5) PH Ur Specific [place] (1.002-1.030) Urine Protein (NEGATIVE) mg/dL Urine Glucose (UA) (NEGATIVE) mg/dL Urine Ketones (NEGATIVE) mg/dL Urine Occult Blood (NEGATIVE) Urine Nitrite (NEGATIVE) Urine Bilirubin (NEGATIVE) Urine Urobilinogen (NORMAL) E.U./dL Ur Leukocyte Esterase (NEGATIVE) Urine RBC (0-5) /HPF Urine WBC (0-5) /HPF Ur Squamous Epith Cells (<= Few) Urine Bacteria (None Seen) /HPF Ur Microscopic Review Urine Culture Comments Urine Opiates Screen (NEGATIVE) Ur Oxycodone Screen (NEGATIVE) Urine Methadone Screen (NEGATIVE) Ur Propoxyphene Screen (NEGATIVE) Ur Barbiturates Screen (NEGATIVE) Ur Tricyclics Screen (NEGATIVE) Ur Phencyclidine Scrn (NEGATIVE) Ur Amphetamine Screen (NEGATIVE) U Methamphetamines Scrn (NEGATIVE) U Benzodiazepines Scrn (NEGATIVE) Urine Cocaine Screen (NEGATIVE) U Cannabinoids Screen (NEGATIVE) 06/08/19 06/08/19 06/08/19 Range/Units 13:20 13:20 05:06 WBC 12.2 H (4.8-10.8) x10^3/uL RBC 3.74 L (4.20-5.40) 10^6/uL Hgb 11.3 L (12.0-16.0) g/dL Hct 34.9 L (37.0-47.0) % MCV 93.3 (81.0-99.0) fL MCH 30.2 (27.0-31.0) pg MCHC 32.4 (32.0-36.0) g/dL RDW 14.3 (12.0-15.0) % Plt Count 247 (130-450) 10^3/uL MPV 12.8 H (7.9-10.8) fL Neut # (Auto) 8.6 H (1.5-6.6) 10^3/uL Lymph # (Auto) 2.5 (1.5-3.5) 10^3/uL [place] # (Auto) 0.9 (0.0-1.0) 10^3/uL Eos # (Auto) 0.2 (0.0-0.7) 10^3/uL Baso # (Auto) 0.1 (0.0-0.1) 10^3/uL Absolute Nucleated RBC 0.00 x10^3/uL Nucleated RBC % 0.0 /100WBC Sodium (135-145) mmol/L Potassium (3.5-5.0) mmol/L Chloride (101-111) mmol/L Carbon Dioxide (21-32) mmol/L Anion Gap (6-13) BUN (6-20) mg/dL Creatinine (0.4-1.0) mg/dL Estimated GFR (MDRD) (>89) Glucose (70-100) mg/dL Glycated Hemoglobin (4.6-6.2) % Estim Average Glucose (70-100) Lactic Acid (0.5-2.2) mmol/L Calcium (8.5-10.3) mg/dL Total Bilirubin (0.2-1.0) mg/dL GGT 528 H (8-38) IU/L AST (10-42) IU/L ALT (10-60) IU/L Alkaline Phosphatase (42-121) IU/L Troponin I (<0.49) ng/mL Total Protein (6.7-8.2) g/dL Albumin (3.2-5.5) g/dL Globulin (2.1-4.2) g/dL Albumin/Globulin Ratio (1.0-2.2) Triglycerides 650 H ( - 149) mg/dL Cholesterol 164 ( - 199) mg/dL LDL Cholesterol Direct 51 ( - 129) mg/dL LDL Cholesterol, Calc Not Reportable VLDL Cholesterol Not Reportable HDL Cholesterol 20 L (60 - ) mg/dL LDL/HDL Ratio Not Reportable dLDL/HDL Ratio 2.6 (<4.4) Cholesterol/HDL Ratio 8.2 (<4.4) Lipase (22-51) U/L TSH (0.34-5.60) uIU/mL Urine Color Urine Clarity (CLEAR) Urine pH (5.0-7.5) PH Ur Specific [place] (1.002-1.030) Urine Protein (NEGATIVE) mg/dL Urine Glucose (UA) (NEGATIVE) mg/dL Urine Ketones (NEGATIVE) mg/dL Urine Occult Blood (NEGATIVE) Urine Nitrite (NEGATIVE) Urine Bilirubin (NEGATIVE) Urine Urobilinogen (NORMAL) E.U./dL Ur Leukocyte Esterase (NEGATIVE) Urine RBC (0-5) /HPF Urine WBC (0-5) /HPF Ur Squamous Epith Cells (<= Few) Urine Bacteria (None Seen) /HPF Ur Microscopic Review Urine Culture Comments Urine Opiates Screen (NEGATIVE) Ur Oxycodone Screen (NEGATIVE) Urine Methadone Screen (NEGATIVE) Ur Propoxyphene Screen (NEGATIVE) Ur Barbiturates Screen (NEGATIVE) Ur Tricyclics Screen (NEGATIVE) Ur Phencyclidine Scrn (NEGATIVE) Ur Amphetamine Screen (NEGATIVE) U Methamphetamines Scrn (NEGATIVE) U Benzodiazepines Scrn (NEGATIVE) Urine Cocaine Screen (NEGATIVE) U Cannabinoids Screen (NEGATIVE) 06/08/19 06/08/19 06/07/19 Range/Units 05:06 05:06 22:50 WBC 10.9 H (4.8-10.8) x10^3/uL RBC 3.54 L (4.20-5.40) 10^6/uL Hgb 10.7 L (12.0-16.0) g/dL Hct 32.5 L (37.0-47.0) % MCV 91.8 (81.0-99.0) fL MCH 30.2 (27.0-31.0) pg MCHC 32.9 (32.0-36.0) g/dL RDW 14.1 (12.0-15.0) % Plt Count 198 (130-450) 10^3/uL MPV 12.3 H (7.9-10.8) fL Neut # (Auto) 7.5 H (1.5-6.6) 10^3/uL Lymph # (Auto) 2.4 (1.5-3.5) 10^3/uL [place] # (Auto) 0.7 (0.0-1.0) 10^3/uL Eos # (Auto) 0.2 (0.0-0.7) 10^3/uL Baso # (Auto) 0.1 (0.0-0.1) 10^3/uL Absolute Nucleated RBC 0.00 x10^3/uL Nucleated RBC % 0.0 /100WBC Sodium 140 (135-145) mmol/L Potassium 4.3 (3.5-5.0) mmol/L Chloride 106 (101-111) mmol/L Carbon Dioxide 24 (21-32) mmol/L Anion Gap 10.0 (6-13) BUN 20 (6-20) mg/dL Creatinine 0.8 (0.4-1.0) mg/dL Estimated GFR (MDRD) 73 L (>89) Glucose 143 H (70-100) mg/dL Glycated Hemoglobin (4.6-6.2) % Estim Average Glucose (70-100) Lactic Acid (0.5-2.2) mmol/L Calcium 8.6 (8.5-10.3) mg/dL Total Bilirubin (0.2-1.0) mg/dL GGT (8-38) IU/L AST (10-42) IU/L ALT (10-60) IU/L Alkaline Phosphatase (42-121) IU/L Troponin I (<0.49) ng/mL Total Protein (6.7-8.2) g/dL Albumin (3.2-5.5) g/dL Globulin (2.1-4.2) g/dL Albumin/Globulin Ratio (1.0-2.2) Triglycerides ( - 149) mg/dL Cholesterol ( - 199) mg/dL LDL Cholesterol Direct ( - 129) mg/dL LDL Cholesterol, Calc VLDL Cholesterol HDL Cholesterol (60 - ) mg/dL LDL/HDL Ratio dLDL/HDL Ratio (<4.4) Cholesterol/HDL Ratio (<4.4) Lipase 371 H (22-51) U/L TSH (0.34-5.60) uIU/mL Urine Color Urine Clarity (CLEAR) Urine pH (5.0-7.5) PH Ur Specific [place] (1.002-1.030) Urine Protein (NEGATIVE) mg/dL Urine Glucose (UA) (NEGATIVE) mg/dL Urine Ketones (NEGATIVE) mg/dL Urine Occult Blood (NEGATIVE) Urine Nitrite (NEGATIVE) Urine Bilirubin (NEGATIVE) Urine Urobilinogen (NORMAL) E.U./dL Ur Leukocyte Esterase (NEGATIVE) Urine RBC (0-5) /HPF Urine WBC (0-5) /HPF Ur Squamous Epith Cells (<= Few) Urine Bacteria (None Seen) /HPF Ur Microscopic Review Urine Culture Comments Urine Opiates Screen NEGATIVE (NEGATIVE) Ur Oxycodone Screen POSITIVE H (NEGATIVE) Urine Methadone Screen NEGATIVE (NEGATIVE) Ur Propoxyphene Screen NEGATIVE (NEGATIVE) Ur Barbiturates Screen NEGATIVE (NEGATIVE) Ur Tricyclics Screen NEGATIVE (NEGATIVE) Ur Phencyclidine Scrn NEGATIVE (NEGATIVE) Ur Amphetamine Screen POSITIVE H (NEGATIVE) U Methamphetamines Scrn NEGATIVE (NEGATIVE) U Benzodiazepines Scrn POSITIVE H (NEGATIVE) Urine Cocaine Screen NEGATIVE (NEGATIVE) U Cannabinoids Screen NEGATIVE (NEGATIVE) 06/07/19 06/07/19 06/07/19 Range/Units 22:50 21:43 21:09 WBC (4.8-10.8) x10^3/uL RBC (4.20-5.40) 10^6/uL Hgb (12.0-16.0) g/dL Hct (37.0-47.0) % MCV (81.0-99.0) fL MCH (27.0-31.0) pg MCHC (32.0-36.0) g/dL RDW (12.0-15.0) % Plt Count (130-450) 10^3/uL MPV (7.9-10.8) fL Neut # (Auto) (1.5-6.6) 10^3/uL Lymph # (Auto) (1.5-3.5) 10^3/uL [place] # (Auto) (0.0-1.0) 10^3/uL Eos # (Auto) (0.0-0.7) 10^3/uL Baso # (Auto) (0.0-0.1) 10^3/uL Absolute Nucleated RBC x10^3/uL Nucleated RBC % /100WBC Sodium (135-145) mmol/L Potassium (3.5-5.0) mmol/L Chloride (101-111) mmol/L Carbon Dioxide (21-32) mmol/L Anion Gap (6-13) BUN (6-20) mg/dL Creatinine (0.4-1.0) mg/dL Estimated GFR (MDRD) (>89) Glucose (70-100) mg/dL Glycated Hemoglobin (4.6-6.2) % Estim Average Glucose (70-100) Lactic Acid 1.9 (0.5-2.2) mmol/L Calcium (8.5-10.3) mg/dL Total Bilirubin (0.2-1.0) mg/dL GGT (8-38) IU/L AST (10-42) IU/L ALT (10-60) IU/L Alkaline Phosphatase (42-121) IU/L Troponin I < 0.04 (<0.49) ng/mL Total Protein (6.7-8.2) g/dL Albumin (3.2-5.5) g/dL Globulin (2.1-4.2) g/dL Albumin/Globulin Ratio (1.0-2.2) Triglycerides ( - 149) mg/dL Cholesterol ( - 199) mg/dL LDL Cholesterol Direct ( - 129) mg/dL LDL Cholesterol, Calc VLDL Cholesterol HDL Cholesterol (60 - ) mg/dL LDL/HDL Ratio dLDL/HDL Ratio (<4.4) Cholesterol/HDL Ratio (<4.4) Lipase (22-51) U/L TSH (0.34-5.60) uIU/mL Urine Color YELLOW Urine Clarity CLEAR (CLEAR) Urine pH 6.5 (5.0-7.5) PH Ur Specific [place] 1.020 (1.002-1.030) Urine Protein NEGATIVE (NEGATIVE) mg/dL Urine Glucose (UA) NEGATIVE (NEGATIVE) mg/dL Urine Ketones NEGATIVE (NEGATIVE) mg/dL Urine Occult Blood NEGATIVE (NEGATIVE) Urine Nitrite NEGATIVE (NEGATIVE) Urine Bilirubin NEGATIVE (NEGATIVE) Urine Urobilinogen 0.2 (NORMAL) (NORMAL) E.U./dL Ur Leukocyte Esterase TRACE H (NEGATIVE) Urine RBC 0-5 (0-5) /HPF Urine WBC 0-3 (0-5) /HPF Ur Squamous Epith Cells FEW Squamous (<= Few) Urine Bacteria Rare (None Seen) /HPF Ur Microscopic Review INDICATED Urine Culture Comments INDICATED Urine Opiates Screen (NEGATIVE) Ur Oxycodone Screen (NEGATIVE) Urine Methadone Screen (NEGATIVE) Ur Propoxyphene Screen (NEGATIVE) Ur Barbiturates Screen (NEGATIVE) Ur Tricyclics Screen (NEGATIVE) Ur Phencyclidine Scrn (NEGATIVE) Ur Amphetamine Screen (NEGATIVE) U Methamphetamines Scrn (NEGATIVE) U Benzodiazepines Scrn (NEGATIVE) Urine Cocaine Screen (NEGATIVE) U Cannabinoids Screen (NEGATIVE) 06/07/19 06/07/19 Range/Units 21:09 21:09 WBC 13.7 H (4.8-10.8) x10^3/uL RBC 4.18 L (4.20-5.40) 10^6/uL Hgb 12.6 (12.0-16.0) g/dL Hct 38.0 (37.0-47.0) % MCV 90.9 (81.0-99.0) fL MCH 30.1 (27.0-31.0) pg MCHC 33.2 (32.0-36.0) g/dL RDW 14.1 (12.0-15.0) % Plt Count 271 (130-450) 10^3/uL MPV 12.8 H (7.9-10.8) fL Neut # (Auto) 9.0 H (1.5-6.6) 10^3/uL Lymph # (Auto) 3.6 H (1.5-3.5) 10^3/uL [place] # (Auto) 0.8 (0.0-1.0) 10^3/uL Eos # (Auto) 0.2 (0.0-0.7) 10^3/uL Baso # (Auto) 0.1 (0.0-0.1) 10^3/uL Absolute Nucleated RBC 0.00 x10^3/uL Nucleated RBC % 0.0 /100WBC Sodium 141 (135-145) mmol/L Potassium 4.3 (3.5-5.0) mmol/L Chloride 103 (101-111) mmol/L Carbon Dioxide 24 (21-32) mmol/L Anion Gap 14.0 H (6-13) BUN 22 H (6-20) mg/dL Creatinine 0.9 (0.4-1.0) mg/dL Estimated GFR (MDRD) 64 L (>89) Glucose 133 H (70-100) mg/dL Glycated Hemoglobin (4.6-6.2) % Estim Average Glucose (70-100) Lactic Acid (0.5-2.2) mmol/L Calcium 9.5 (8.5-10.3) mg/dL Total Bilirubin 0.5 (0.2-1.0) mg/dL GGT (8-38) IU/L AST 87 H (10-42) IU/L ALT 51 (10-60) IU/L Alkaline Phosphatase 101 (42-121) IU/L Troponin I (<0.49) ng/mL Total Protein 7.4 (6.7-8.2) g/dL Albumin 3.6 (3.2-5.5) g/dL Globulin 3.8 (2.1-4.2) g/dL Albumin/Globulin Ratio 0.9 L (1.0-2.2) Triglycerides ( - 149) mg/dL Cholesterol ( - 199) mg/dL LDL Cholesterol Direct ( - 129) mg/dL LDL Cholesterol, Calc VLDL Cholesterol HDL Cholesterol (60 - ) mg/dL LDL/HDL Ratio dLDL/HDL Ratio (<4.4) Cholesterol/HDL Ratio (<4.4) Lipase 210 H (22-51) U/L TSH (0.34-5.60) uIU/mL Urine Color Urine Clarity (CLEAR) Urine pH (5.0-7.5) PH Ur Specific [place] (1.002-1.030) Urine Protein (NEGATIVE) mg/dL Urine Glucose (UA) (NEGATIVE) mg/dL Urine Ketones (NEGATIVE) mg/dL Urine Occult Blood (NEGATIVE) Urine Nitrite (NEGATIVE) Urine Bilirubin (NEGATIVE) Urine Urobilinogen (NORMAL) E.U./dL Ur Leukocyte Esterase (NEGATIVE) Urine RBC (0-5) /HPF Urine WBC (0-5) /HPF Ur Squamous Epith Cells (<= Few) Urine Bacteria (None Seen) /HPF Ur Microscopic Review Urine Culture Comments Urine Opiates Screen (NEGATIVE) Ur Oxycodone Screen (NEGATIVE) Urine Methadone Screen (NEGATIVE) Ur Propoxyphene Screen (NEGATIVE) Ur Barbiturates Screen (NEGATIVE) Ur Tricyclics Screen (NEGATIVE) Ur Phencyclidine Scrn (NEGATIVE) Ur Amphetamine Screen (NEGATIVE) U Methamphetamines Scrn (NEGATIVE) U Benzodiazepines Scrn (NEGATIVE) Urine Cocaine Screen (NEGATIVE) U Cannabinoids Screen (NEGATIVE) ABX Reporting Has patient been on IV antibiotics over the past 48 hours?: No Assessment/Plan - Problem List (1) Pancreatitis Impression: - Most likely etiology determined to be recent lap gwen which was necrotic with several stones found withing the body of the gallbladder, and with stones and polyps located within the common bile duct - Continues with NPO today, although insists on taking ice chips - Pain management using dilaudid, resuming home alprazolam, and IV hydration with normal saline - MRCP is on hold based on latest operative report showing above mentioned stones/polyps within the common bile duct - Lipid panel showing very elevated triglyceride level of 650- also another contributing factor to this pancreatitis - General surgery was consulted, who may follow given her recent cholecystectomy - Lipase elevated to 371 today, which is worse than at the time of admission - Pain located in her RUQ Plan: Continue to encourage bowel rest, monitor daily lipase, and consider further imaging if no improvement Qualifiers: Chronicity: acute Pancreatitis type: unspecified pancreatitis type Acute pancreatitis complication: unspecified Qualified Code(s): K85.90 - Acute pancreatitis without necrosis or infection, unspecified (2) Intractable nausea and vomiting Impression: - Patient denies vomiting, but states that her nausea is just as bad as her abdominal pain Plan: Continue to treat symptoms (3) RUQ abdominal pain Impression: - Patient states that for the past 5 years, she has had abdominal pain primarily in the RUQ - No radiating pain through her body into her back, and no pain in the usual place for acute pancreatitis - RUQ abdominal pain, soft palpable abdomen, no masses Plan: Continue with bowel rest, IV dilaudid and IVFs (4) Depression Impression: - Patient takes Prozac at home which continues here Plan: Continue medication, treat acute illness Qualifiers: Depression Type: major depressive disorder (5) GERD (gastroesophageal reflux disease) Impression: - Takes a PPI at home Plan: continue while in the hospital (6) Hypertension Impression: - Takes an ARB and BB at home, now on hold due to acute illness - Blood pressure 118/70's today Plan: Continue to monitor, resume meds when appropriate Qualifiers: Hypertension type: essential hypertension Qualified Code(s): I10 - Essential (primary) hypertension (7) Hypothyroidism Impression: - Takes pork thyroid at home, continues here - TSH normal today at 3.71 Plan: Continue home medications (8) Insomnia Impression: - Chronic insomnia at home - Takes Prozac, Ambien, and alprazolam Plan: Continued while in the hospital (9) Leukocytosis Impression: - WBC count is 12.2, up from 10.9 - Neut # is 8.6 up from 7.5 - No documented fevers - No complaints of sweats or chills, just pain - Could be a stress response Plan: Continue to trend CBCs (10) Status post laparoscopic cholecystectomy Impression: - Patient underwent a lap gwen with Dr. Segal on 05/21, with no known post-op complications - No s/s of infection noted to any of the surgical sites - steady mild WBC count elevation, no fevers - May be contributing to her acute pancreatitis Plan: Continue to monitor, treat acute illness (11) High triglycerides Impression: - Elevated triglycerides at 650 Plan: Continue to treat acute illness
[2019-06-08] MEDS: IRBESARTAN 75 MG PO SCH (22:09)
[2019-06-08] MEDS: [UNRECOGNIZED DRUG - OTHER] PO SCH (22:09)
[2019-06-09] MEDS: SODIUM CHLORIDE FLUSH 0.9% 10 ML SYRINGE IVP SCH ×3 (00:29→16:09)
[2019-06-09] MEDS: METOCLOPRAMIDE 10 MG/2 ML VIAL IVP SCH ×3 (00:29→11:36)
[2019-06-09] MEDS: HYDROmorphone 1 MG/ML CARPUJECT IVP PRN ×6 (00:42→20:05)
[2019-06-09] MEDS: SODIUM CHLORIDE FLUSH 0.9% 10 ML SYRINGE IVP PRN ×3 (00:42→20:05)
[2019-06-09] MEDS: SODIUM CHLORIDE 0.9% 1,000 ML IV SCH ×2 (01:54→09:56)
[2019-06-09] MEDS: PANTOPRAZOLE 40 MG VIAL IVP SCH (06:00)
[2019-06-09 06:07] LABS: BASOPHILS # (AUTO) 0.1 10^3/uL (0.0-0.1); BASOPHILS % (AUTO) 0.4 %; EOSINOPHILS # (AUTO) 0.3 10^3/uL (0.0-0.7); EOSINOPHILS % (AUTO) 2.5 %; HGB - HEMOGLOBIN 9.7 g/dL (12.0-16.0); LYMPHOCYTES # (AUTO) 2.7 10^3/uL (1.5-3.5); LYMPHOCYTES % (AUTO) 21.2 %; MEAN CORPUSCULAR VOLUME 93.8 fL (81.0-99.0); MEAN PLATELET VOLUME 12.8 fL (7.9-10.8); MONOCYTES % (AUTO) 7.6 %; NEUTROPHILS # (AUTO) 8.5 10^3/uL (1.5-6.6); NEUTROPHILS % (AUTO) 67.7 %; PLT - PLATELET COUNT 179 10^3/uL (130-450); RED BLOOD COUNT 3.23 10^6/uL (4.20-5.40); RED CELL DISTRIBUTION WIDTH 14.7 % (12.0-15.0); WHITE BLOOD COUNT 12.6 x10^3/uL (4.8-10.8)
[2019-06-09] MEDS: [UNRECOGNIZED DRUG - OTHER] PO SCH ×3 (06:25→21:10)
[2019-06-09 06:27] LABS: ALBUMIN/GLOBULIN RATIO 0.9 (1.0-2.2); BILIRUBIN,TOTAL 2.2 mg/dL (0.2-1.0); CALCIUM 8.4 mg/dL (8.5-10.3); CREATININE 0.7 mg/dL (0.4-1.0); TOTAL PROTEIN 6.2 g/dL (6.7-8.2)
[2019-06-09] MEDS: FLUoxetine 10 MG CAPSULE PO SCH (08:39)
[2019-06-09] MEDS: POLYETHYLENE GLYCOL 3350 17 GM PACKET PO SCH (08:39)
[2019-06-09] MEDS: ARMOUR THYROID 15 MG PO SCH (08:39)
[2019-06-09] MEDS ORDERED: ALPRAZolam 0.25 MG TABLET PO SCH (09:00)
[2019-06-09] MEDS: ALPRAZolam 0.25 MG TABLET PO SCH ×2 (10:56→17:49)
--- NOTE | 2019-06-09 14:45 | PROVIDER PROGRESS NOTE ---
Subjective - Prog Note Date Prog Note Date: 06/09/19 Prog Note Time: 14:44 - Subjective Pt reports feeling: Improved Subjective: Kiesha complains of right thigh cramping that is relieved when standing. She denies chest pain, nausea, vomiting, diarrhea, a new rash or a new cough. She is improved today and tolerating meals. Current Medications - Current Medications Current Medications: Active Medications: Alprazolam (Xanax) 1 mg PO TID [facility] Fluoxetine HCl (Prozac) 20 mg PO DAILY [facility] Hydromorphone HCl (Dilaudid Inj Carp) 1 mg IVP Q4H PRN Magnesium Oxide (Mag Ox) 400 mg PO BIDWM [facility] Metoprolol Succinate (Toprol Xl) 50 mg PO QPM [facility] Ondansetron HCl (Zofran Inj) 4 mg IVP Q6HR PRN Oxycodone HCl (Roxicodone) 5 mg PO Q4HR PRN Pantoprazole Sodium (Protonix) 40 mg IVP QDAC [facility] Patient Own Med ( Hydroxyzine Hcl 25mg ) 1 each PO BID PRN Patient Own Med ( (Irbesartan 75mg) 1 each PO HS [facility] Patient Own Med ([place] Thyroid 15mg) 1 each PO DAILY [facility] Patient Own Med (Ketotifen Fum 1mg) 1 each PO TID [facility] Polyethylene Glycol (Miralax) 17 gm PO DAILY [facility] Promethazine HCl (Phenergan Supp) 12.5 mg MA TID PRN Zolpidem Tartrate (Ambien) 5 mg PO HS [facility] HOME meds: Zolpidem [Ambien] 5 mg PO HS 10/28/13 Irbesartan 75 mg PO DAILY 05/06/19 Dextroamphetamine/Amphetamine [Dextroamp-Amphet ER 20 mg Cap] 20 mg PO BID 0 05/20/19 Estradiol [Vivelle-Dot] 1 patch TD MOTH 05/20/19 Pantoprazole [Protonix] 40 mg PO DAILY 05/20/19 hydrOXYzine HCl [Hydroxyzine HCl] 25 mg PO BID PRN 05/20/19 Alprazolam [Alprazolam Xr] 1 mg PO DAILY PM 06/08/19 Fluoxetine HCl 20 mg PO DAILY 06/08/19 Metoprolol Succinate [Toprol Xl] 50 mg PO DAILY PM 06/08/19 Thyroid,Pork [[place] Thyroid] 15 mg PO DAILY 06/08/19 oxyCODONE/ACET 5/325 [Percocet 5 mg/325 mg] 1 tab PO Q4H PRN 06/08/19 Objective - Vital Signs/Intake & Output Reviewed Vital Signs: Yes Vital Signs: Vital Signs x48h Temp Pulse Resp BP Pulse Ox 06/09/19 08:00 37.0 C 84 17 127/64 90 L Intake & Output: Intake & Output 06/06/19 06/07/19 06/08/19 06/09/19 23:59 23:59 23:59 23:59 Intake Total 3484.25 2556.25 Output Total 1275 Balance 2209.25 2556.25 - Objective General Appearance: positive: Alert, Moderate distress, Anxious Eyes Bilateral: positive: PERRL Eyes: OU Conjunctivae pale ENT: positive: Pharynx nml, No signs of dehydration Neck: positive: Thyroid nml, No JVD, Trachea midline Respiratory: positive: Chest non-tender, No respiratory distress, Breath sounds nml Cardiovascular: positive: Regular rate & rhythm, No gallop, Systolic murmur Peripheral Pulses: 1+ Radial (R), 1+ Radial (L) Abdomen: positive: Nml bowel sounds, Tenderness, Hepatomegaly Back: positive: Nml inspection Skin: positive: No rash, Warm, Dry Extremities: positive: Non-tender, Full ROM, Pedal edema Neurologic/Psychiatric: positive: Oriented x3, CN's nml (2-12), Motor nml, Sensation nml, Depressed mood/affect Reflexes: Bicep (R): 2+, Bicep (L): 2+ - Lab Results Fish Bones: 06/09/19 05:36 06/09/19 05:36 Other Labs: Lab Results x24hrs 06/09/19 06/09/19 06/09/19 Range/Units 05:36 05:36 05:36 WBC 12.6 H (4.8-10.8) x10^3/uL RBC 3.23 L (4.20-5.40) 10^6/uL Hgb 9.7 L (12.0-16.0) g/dL Hct 30.3 L (37.0-47.0) % MCV 93.8 (81.0-99.0) fL MCH 30.0 (27.0-31.0) pg MCHC 32.0 (32.0-36.0) g/dL RDW 14.7 (12.0-15.0) % Plt Count 179 (130-450) 10^3/uL MPV 12.8 H (7.9-10.8) fL Neut # (Auto) 8.5 H (1.5-6.6) 10^3/uL Lymph # (Auto) 2.7 (1.5-3.5) 10^3/uL [place] # (Auto) 1.0 (0.0-1.0) 10^3/uL Eos # (Auto) 0.3 (0.0-0.7) 10^3/uL Baso # (Auto) 0.1 (0.0-0.1) 10^3/uL Absolute Nucleated RBC 0.00 x10^3/uL Nucleated RBC % 0.0 /100WBC Sodium 140 (135-145) mmol/L Potassium 4.0 (3.5-5.0) mmol/L Chloride 107 (101-111) mmol/L Carbon Dioxide 23 (21-32) mmol/L Anion Gap 10.0 (6-13) BUN 15 (6-20) mg/dL Creatinine 0.7 (0.4-1.0) mg/dL Estimated GFR (MDRD) 86 L (>89) Glucose 104 H (70-100) mg/dL Calcium 8.4 L (8.5-10.3) mg/dL Ferritin 121.3 (11.0-306.8) ng/mL Total Bilirubin 2.2 H (0.2-1.0) mg/dL AST 515 H (10-42) IU/L ALT 241 H (10-60) IU/L Alkaline Phosphatase 128 H (42-121) IU/L Total Protein 6.2 L (6.7-8.2) g/dL Albumin 3.0 L (3.2-5.5) g/dL Globulin 3.2 (2.1-4.2) g/dL Albumin/Globulin Ratio 0.9 L (1.0-2.2) Lipase 134 H (22-51) U/L ABX Reporting Has patient been on IV antibiotics over the past 48 hours?: No Assessment/Plan - Problem List (1) Pancreatitis Impression: - Most likely etiology determined to be recent lap gwen which was necrotic with several stones found withing the body of the gallbladder, and with stones and polyps located within the common bile duct - Pain management using dilaudid- reduced to Q4H, resuming home alprazolam, and IV hydration with normal saline - Encourage PO meds - MRCP is on hold based on latest operative report showing above mentioned stones/polyps within the common bile duct - Lipid panel showing very elevated triglyceride level of 650- also another contributing factor to this pancreatitis - General surgery was consulted, who may follow given her recent cholecystectomy - Lipase is reduced to 134 today, which is much improved and she is tolerating meals - Pain located in her RUQ- now barely noticeable Plan: Continue to encourage PO intake, stop IV fluids, monitor daily lipase, and consider further imaging if no improvement Qualifiers: Chronicity: acute Pancreatitis type: unspecified pancreatitis type Acute pancreatitis complication: unspecified Qualified Code(s): K85.90 - Acute pancreatitis without necrosis or infection, unspecified (2) Intractable nausea and vomiting Impression: - Patient denies vomiting, and notes that her nausea is barely noticeable - Now tolerating meals - Scheduled promethazine discontinued, IV fluids stopped Plan: Continue to treat symptoms Qualifiers: Vomiting type: unspecified Qualified Code(s): R11.2 - Nausea with vomiting, unspecified (3) RUQ abdominal pain Impression: - Patient states that for the past 5 years, she has had abdominal pain primarily in the RUQ - No radiating pain through her body into her back, and no pain in the usual place for acute pancreatitis - RUQ abdominal pain, soft palpable abdomen, no masses - Nearly resolved on exam today Plan: Continue to monitor (4) Depression Impression: - Patient takes Prozac at home which continues here- although she refused today - Not likely affecting her overall mental state Plan: Continue medication, treat acute illness Qualifiers: Depression Type: major depressive disorder Major depression episode severity: severe Psychotic features: with psychotic features (5) GERD (gastroesophageal reflux disease) Impression: - Takes a PPI at home Plan: continued while in the hospital Qualifiers: Esophagitis presence: without esophagitis Qualified Code(s): K21.9 - Gastro-esophageal reflux disease without esophagitis (6) Hypertension Impression: - Takes an ARB and BB at home, now on hold due to acute illness - Blood pressure 130/85 today Plan: Continue to monitor, resume meds when appropriate Qualifiers: Hypertension type: essential hypertension Qualified Code(s): I10 - Essential (primary) hypertension (7) Hypothyroidism Impression: - Takes pork thyroid at home, continues here - TSH normal today at 3.71 Plan: Continue home medications Qualifiers: Hypothyroidism type: acquired Qualified Code(s): E03.9 - Hypothyroidism, unspecified (8) Insomnia Impression: - Chronic insomnia at home - Takes Prozac, Ambien, and alprazolam Plan: Continued while in the hospital Qualifiers: Insomnia type: primary Qualified Code(s): F51.01 - Primary insomnia (9) Leukocytosis Impression: - WBC count is 12.6, up from 12.2 - Neut # is 8.5 down from 8.6 - No documented fevers - No complaints of sweats or chills, just pain - Could be a stress response Plan: Continue to trend CBCs Qualifiers: Leukocytosis type: unspecified Qualified Code(s): D72.829 - Elevated white blood cell count, unspecified (10) Status post laparoscopic cholecystectomy Impression: - Patient underwent a lap gwen with Dr. Segal on 05/21, with no known post-op complications - No s/s of infection noted to any of the surgical sites - steady mild WBC count elevation, no fevers - May be contributing to her acute pancreatitis Plan: Continue to monitor, treat acute illness (11) High triglycerides Impression: - Elevated triglycerides at 650 Plan: Continue to treat acute illness
[2019-06-09] MEDS: MAGNESIUM OXIDE 400 MG TABLET PO SCH (17:03)
[2019-06-09] MEDS: METOPROLOL SUCCINATE 50 MG TABLET PO SCH (21:07)
[2019-06-09] MEDS: ZOLPIDEM 5 MG TABLET PO SCH (21:07)
[2019-06-09] MEDS: IRBESARTAN 75 MG PO SCH (21:10)
[2019-06-10] MEDS: HYDROmorphone 1 MG/ML CARPUJECT IVP PRN ×4 (00:36→15:50)
[2019-06-10] MEDS: SODIUM CHLORIDE FLUSH 0.9% 10 ML SYRINGE IVP SCH ×3 (00:42→15:50)
[2019-06-10] MEDS: SODIUM CHLORIDE FLUSH 0.9% 10 ML SYRINGE IVP PRN ×3 (00:43→06:18)
[2019-06-10] MEDS: ALPRAZolam 0.25 MG TABLET PO SCH ×4 (00:59→21:52)
[2019-06-10] MEDS: oxyCODONE 5 MG TABLET PO PRN ×5 (02:52→21:56)
[2019-06-10] MEDS: [UNRECOGNIZED DRUG - OTHER] PO SCH ×3 (06:17→21:52)
[2019-06-10] MEDS: PANTOPRAZOLE 40 MG VIAL IVP SCH (06:18)
[2019-06-10] MEDS: ONDANSETRON 4 MG/2 ML VIAL IVP PRN ×2 (07:14→21:55)
[2019-06-10] MEDS ORDERED: GADOBUTROL 10 MMOL/10 ML VIAL ONE (08:12)
[2019-06-10] MEDS: MAGNESIUM OXIDE 400 MG TABLET PO SCH ×2 (08:35→17:49)
[2019-06-10] MEDS: FLUoxetine 10 MG CAPSULE PO SCH (08:36)
[2019-06-10] MEDS: ARMOUR THYROID 15 MG PO SCH (08:37)
[2019-06-10] MEDS: POLYETHYLENE GLYCOL 3350 17 GM PACKET PO SCH ×2 (08:37→13:35)
[2019-06-10] MEDS: SENNA 8.6 MG TABLET PO SCH (10:11)
[2019-06-10] MEDS ORDERED: LACTULOSE 10 GM /15 ML UDC PO SCH (12:00)
--- NOTE | 2019-06-10 13:22 | CONSULTATION NOTE ---
Referring Provider Name of Referring Provider:: Harmeet Rasmussen ALMITA Consult Date: 06/10/19 Chief Complaint - Chief Complaint Chief Complaint: abd pain History of Present Illness - Admitted From Admitted From:: ER - History Obtained From Records Reviewed: yes History obtained from: pt, records Exam Limitations: none - History of Present Illness HPI Comment/Other: 56 yo female underwent an uncomplicated lap cholecystectomy for acute calculous cholecystitis on 05/21/19. A drain was placed and subsequently was removed in the office several days later. She did well until approximately 5 days postop when she developed recurrent epigastric and RUQ pain, N/V which failed to improve and resulted in return to the ER on 06/07 with findings of acute pancreatitis. She was admitted for inpatient management. She was noted to have mild transaminitis and lipase of 210. A CT abd/pelvis showed edema of the pancreatic head but no other abnormalities including no evidence of biliary ductal dilatation or any complication from the recent surgery. She was treated with IVF and bowel rest. Yesterday however her labs were notable for worsening lfts with Bili rising to 2.2, while lipase dropped into the 150 range. Her epigastric and RUQ pain have persisted although N/V has resolved and there has been no fever/chills. An MRCP was ordered for today and the results are pending at the time of this report. Today's labs are pending as well. History - Past Medical History Cardiovascular: reports: None, Hypertension Respiratory: reports: None Neuro: reports: None, Seizure disorder, Other (hypoglossal neuralgia) Endocrine/Autoimmune: reports: HyPOthyroidism GI: reports: None TERRAZZO LAYER: reports: Other (Stage II endometrial cancer s/p hysterectomy and radiation therapy) : reports: Kidney stones, Other (Frequent UTI's) HEENT: reports: None Psych: reports: Depression Musculoskeletal: reports: Other Derm: reports: Other (alopecia. balding. 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 Father: Patient has no k nowledge of father's medical illnesses. Has 2 brothers. One from AIDS. The other brother is healthy. Has 3 children: Amongst the 3 there is developmental delay, psychosis and thyroid disease Social History Notes: She does not smoke. Rare alcohol consumption. 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 No illicit drug use - Substance History Use: Uses substance without health or social issues: NONE - POLST Patient has POLST: No POLST Status: Full Code Meds/Allgy - Home Medications Home Medications: Ambulatory Orders Medication Instructions Recorded Confirmed Zolpidem [Ambien] 5 mg PO HS 10/28/13 06/08/19 Alprazolam [Alprazolam Xr] 2 mg PO DAILY #10 tab.er.24h 10/13/17 06/08/19 Irbesartan 75 mg PO DAILY 05/06/19 06/08/19 Dextroamphetamine/Amphetamine 20 mg PO BID 05/20/19 06/08/19 [Dextroamp-Amphet ER 20 mg Cap] Estradiol [Vivelle-Dot] 1 patch TD MOTH 05/20/19 06/08/19 Pantoprazole [Protonix] 40 mg PO DAILY 05/20/19 06/08/19 hydrOXYzine HCl [Hydroxyzine HCl] 25 mg PO BID PRN 05/20/19 06/08/19 Alprazolam [Alprazolam Xr] 1 mg PO DAILY PM 06/08/19 06/08/19 Fluoxetine HCl 20 mg PO DAILY 06/08/19 06/08/19 Metoprolol Succinate [Toprol Xl] 50 mg PO DAILY PM 06/08/19 06/08/19 Thyroid,Pork [[place] Thyroid] 15 mg PO DAILY 06/08/19 06/08/19 oxyCODONE/ACET 5/325 [Percocet 5 1 tab PO Q4H PRN 06/08/19 06/08/19 mg/325 mg] - Allergies Allergies/Adverse Reactions: Allergies Allergy/AdvReac Type Severity Reaction Status Date / Time adhesive Allergy Intermediate Rash Verified 06/07/19 21:03 lorazepam [From Ativan] Allergy jittery Verified 06/07/19 21:03 aripiprazole [From Abilify] AdvReac Severe Anxiety Verified 06/07/19 21:03 cimetidine [From Tagamet] AdvReac Severe Anxiety Verified 06/07/19 21:03 cimetidine HCl * AdvReac Severe Anxiety Verified 06/07/19 21:03 [From Tagamet] diphenhydramine HCl * AdvReac Severe Anxiety Verified 06/07/19 21:03 [From Benadryl] trazodone AdvReac Severe Migraine Verified 06/07/19 21:03 Headache carbamazepine [From Tegretol] AdvReac Anxiety Unverified 06/08/19 12:57 morphine sulfate * AdvReac Nausea Verified 06/07/19 21:03 [From Mari] artificial sweetener AdvReac Intermediate mouth sores Uncoded 06/07/19 21:03 Review of Systems - Cardiovascular Cariovascular: denies: Chest pain - Respiratory Respiratory: denies: Cough, SOB at rest, SOB with exertion - Gastrointestinal Gastrointestinal: reports: Abdominal pain, Nausea, Vomiting, Reflux/heartburn. denies: Constipation, Diarrhea, Change in bowel habits, Rectal bleeding, Black stools, Bloody stools, Alfredo blood emesis, Coffee grounds emesis - Genitourinary Genitourinary: denies: Dysuria - Hematologic/Lymphatic Hematologic/Lymphatic: denies: Blood clots, Bleeding tendencies Exam - Vital Signs Reviewed Vital Signs: Yes Vital Signs: Vital Signs x48h Temp Pulse Resp BP Pulse Ox 06/10/19 08:00 36.7 C 73 20 106/53 L 98 06/10/19 06:55 81 100 - Physical Exam General Appearance: positive: No acute distress, Alert Eyes Bilateral: positive: Normal inspection, No scleral icterus ENT: positive: ENT inspection nml, Pharynx nml, No signs of dehydration Neck: positive: Nml inspection, No JVD Respiratory: positive: Chest non-tender, No respiratory distress, Breath sounds nml. negative: Wheezes, Rales, Rhonchi Cardiovascular: positive: Regular rate & rhythm, No murmur, No gallop Abdomen: positive: Non-tender, No organomegaly, Nml bowel sounds, No distention. negative: Mass Extremities: positive: Non-tender, No pedal edema. negative: Calf tenderness Neurologic/Psychiatric: positive: Oriented x3 Conclusion/Plan - Diagnosis Diagnosis: Acute pancreatitis, likely biliary in etiology. She likely has choledocholithiasis. It is unclear whether she has passed the stone(s) at this time. Her abdomen is benign at present and there is no evidence of any other complication from her recent lap cholecystectomy. - Plan Plan: Recheck labs and MRCP today. If stones are present in the common bile duct, then GI medicine should be consulted and arrangements should be made for ERCP and stone extraction. Will follow. Thanks, - Lab Results Fish Bones: 06/09/19 05:36 06/09/19 05:36 Other Lab Results: See HPI - Diagnostic Imaging Results Diagnostic Imaging Results: positive: Final report reviewed, Read independently Diagnostic Imaging Results Comments: See HPI
[2019-06-10] MEDS ORDERED: GADOBUTROL 10 MMOL/10 ML VIAL IVP ONE (13:33)
--- NOTE | 2019-06-10 14:03 | MRI Report ---
Reason: gallstones, abdominal pain Procedure Date: 06/10/2019 Accession Number: [id number] / [id number] Procedure: MRI - MRCP W/WO CPT Code: FULL RESULT: EXAM: MR ABDOMEN WITH AND WITHOUT CONTRAST (MR PANCREAS AND MRCP) EXAM DATE: 06/10/2019 01:30 PM. CLINICAL HISTORY: Gallstones, abdominal pain. COMPARISON: ABDOMEN/PELVIS W/O 06/07/2019 9:52 PM ABDOMEN/PELVIS W/ 05/20/2019 11:18 AM. TECHNIQUE: Multiplanar breath-hold T1, T2, and DWI sequences obtained through the pancreas and abdomen on an MR scanner. Dedicated 2D and 3D MRCP sequences obtained through the biliary and pancreatic ducts. Images obtained before and after administration of 10 mL Gadavist intravenous contrast. Multiphase postcontrast sequences obtained through the pancreas. FINDINGS: Lung Bases: Unremarkable. Liver: Liver loses signal on out of phase imaging indicating hepatic steatosis. Gallbladder: Cholecystectomy. Intrinsic T1 hyperintensity in the gallbladder fossa, suggestive of blood products/hematoma. Bile Ducts: No intrahepatic biliary ductal dilatation. Common bile duct measures 1 cm and is at upper limits of normal for postcholecystectomy state. No choledocholithiasis. Pancreas: Peripancreatic edema and ill-defined fluid surrounding the pancreatic head and adjacent duodenum with mild T2 hyperintensity in the pancreatic uncinate. Pancreatic divisum. Spleen: The spleen appears normal. Kidneys: T2 hyperintense nonenhancing cyst in the left mid kidney measures 1.7 cm. No solid enhancing renal mass. No hydronephrosis. Adrenals: The adrenals appear normal. Bowel: Colonic diverticulosis. Incidental duodenal diverticulum. Retroperitoneum: The retroperitoneal structures appear normal with no mass or lymphadenopathy. Other: None. Artifacts: Motion. Poor [id number] ratio. IMPRESSION: 1. Edema and ill-defined fluid surrounding the pancreatic head and adjacent duodenum may be due to acute pancreatitis. 2. Pancreatic divisum. 3. No choledocholithiasis. 4. Intrinsic T1 hyperintensity in the gallbladder fossa suggestive of hematoma. 5. Hepatic steatosis. 6. Colonic diverticulosis RADIA
[2019-06-10 15:08] LABS: BASOPHILS # (AUTO) 0.1 10^3/uL (0.0-0.1); BASOPHILS % (AUTO) 0.4 %; EOSINOPHILS # (AUTO) 0.3 10^3/uL (0.0-0.7); EOSINOPHILS % (AUTO) 2.4 %; HGB - HEMOGLOBIN 9.7 g/dL (12.0-16.0); LYMPHOCYTES # (AUTO) 2.8 10^3/uL (1.5-3.5); LYMPHOCYTES % (AUTO) 21.4 %; MEAN CORPUSCULAR HEMOGLOBIN 29.8 pg (27.0-31.0); MEAN CORPUSCULAR HGB CONC 31.4 g/dL (32.0-36.0); MEAN CORPUSCULAR VOLUME 94.8 fL (81.0-99.0); MEAN PLATELET VOLUME 12.8 fL (7.9-10.8); MONOCYTES % (AUTO) 7.8 %; NEUTROPHILS # (AUTO) 8.7 10^3/uL (1.5-6.6); NEUTROPHILS % (AUTO) 67.3 %; PLT - PLATELET COUNT 168 10^3/uL (130-450); RED BLOOD COUNT 3.26 10^6/uL (4.20-5.40); RED CELL DISTRIBUTION WIDTH 14.7 % (12.0-15.0); WHITE BLOOD COUNT 12.9 x10^3/uL (4.8-10.8)
[2019-06-10 15:27] LABS: ALBUMIN 2.9 g/dL (3.2-5.5); ALBUMIN/GLOBULIN RATIO 0.8 (1.0-2.2); BILIRUBIN,TOTAL 1.4 mg/dL (0.2-1.0); CALCIUM 8.7 mg/dL (8.5-10.3); CREATININE 0.7 mg/dL (0.4-1.0); MAGNESIUM 1.8 mg/dL (1.7-2.8); PHOSPHORUS 2.6 mg/dL (2.5-4.6); TOTAL PROTEIN 6.5 g/dL (6.7-8.2)
--- NOTE | 2019-06-10 19:15 | PROVIDER PROGRESS NOTE ---
Subjective - Prog Note Date Prog Note Date: 06/10/19 Prog Note Time: 18:00 - Subjective Pt reports feeling: Improved Subjective: Kiesha claims that she has not moved her bowels in several days and has low abdominal pain. She will require home narcotics as a tapering dose, which will not be able to be filled this evening. Her and her were updated of her recent MRCP results and are agreeable to returning home in the AM. Current Medications - Current Medications Current Medications: Active Medications: Alprazolam (Xanax) 1 mg PO TID [facility] Calcium Carbonate/Glycine (Tums) 500 mg PO TID PRN Fluoxetine HCl (Prozac) 20 mg PO DAILY [facility] Hydromorphone HCl (Dilaudid Inj Syringe) 0.5 mg IVP Q6H PRN Magnesium Oxide (Mag Ox) 400 mg PO BIDWM [facility] Metoprolol Succinate (Toprol Xl) 50 mg PO QPM [facility] Ondansetron HCl (Zofran Inj) 4 mg IVP Q6HR PRN Oxycodone HCl (Roxicodone) 5 mg PO Q4HR PRN Pantoprazole Sodium (Protonix) 40 mg IVP QDAC [facility] Patient Own Med ( Hydroxyzine Hcl 25mg ) 1 each PO BID PRN Patient Own Med (Irbesartan 75mg) 1 each PO HS [facility] Patient Own Med ([place] Thyroid 15mg)1 each PO DAILY [facility] Patient Own Med (Ketotifen Fum 1mg) 1 each PO TID [facility] Polyethylene Glycol (Miralax) 17 gm PO DAILY [facility] Promethazine HCl (Phenergan Supp) 12.5 mg TX TID PRN Senna (Senokot) 8.6 - 17.2 mg PO DAILY [facility] Simethicone (Mylicon) 80 mg PO Q6HR [facility] Zolpidem Tartrate (Ambien) 5 mg PO HS [facility] HOME meds: Zolpidem [Ambien] 5 mg PO HS 10/28/13 Irbesartan 75 mg PO DAILY 05/06/19 Dextroamphetamine/Amphetamine [Dextroamp-Amphet ER 20 mg Cap] 20 mg PO BID 05/20/19 Estradiol [Vivelle-Dot] 1 patch TD MOTH 05/20/19 Pantoprazole [Protonix] 40 mg PO DAILY 05/20/19 hydrOXYzine HCl [Hydroxyzine HCl] 25 mg PO BID PRN 05/20/19 Alprazolam [Alprazolam Xr] 1 mg PO DAILY PM 06/08/19 Fluoxetine HCl 20 mg PO DAILY 06/08/19 Metoprolol Succinate [Toprol Xl] 50 mg PO DAILY PM 06/08/19 Thyroid,Pork [[place] Thyroid] 15 mg PO DAILY 06/08/19 oxyCODONE/ACET 5/325 [Percocet 5 mg/325 mg] 1 tab PO Q4H PRN 06/08/19 Objective - Vital Signs/Intake & Output Reviewed Vital Signs: Yes Vital Signs: Vital Signs x48h Temp Pulse Resp BP Pulse Ox 06/10/19 16:00 36.6 C 85 18 142/75 H 92 Intake & Output: Intake & Output 06/07/19 06/08/19 06/09/19 06/10/19 23:59 23:59 23:59 23:59 Intake Total 3484.25 3729.583 166.667 Output Total 1275 Balance 2209.25 3729.583 166.667 - Objective General Appearance: positive: Alert, Mild distress, Anxious Eyes Bilateral: positive: PERRL ENT: positive: Pharynx nml, No signs of dehydration Neck: positive: Thyroid nml, No JVD, Trachea midline Respiratory: positive: Chest non-tender, No respiratory distress, Breath sounds nml Cardiovascular: positive: Regular rate & rhythm, No gallop, Systolic murmur, Decreased pulse(s) Peripheral Pulses: 1+ Radial (R), 1+ Radial (L) Abdomen: positive: Non-tender, Nml bowel sounds, Hepatomegaly Back: positive: Nml inspection Skin: positive: No rash, Warm, Dry Extremities: positive: Non-tender, Full ROM, Pedal edema, Joint swelling Neurologic/Psychiatric: positive: Oriented x3, CN's nml (2-12), Motor nml, Sensation nml, Depressed mood/affect Reflexes: Bicep (R): 3+, Bicep (L): 3+ - Lab Results Fish Bones: 06/10/19 15:01 06/10/19 15:01 Other Labs: Lab Results x24hrs 06/10/19 06/10/19 06/10/19 Range/Units 15:01 15:01 15:01 WBC 12.9 H (4.8-10.8) x10^3/uL RBC 3.26 L (4.20-5.40) 10^6/uL Hgb 9.7 L (12.0-16.0) g/dL Hct 30.9 L (37.0-47.0) % MCV 94.8 (81.0-99.0) fL MCH 29.8 (27.0-31.0) pg MCHC 31.4 L (32.0-36.0) g/dL RDW 14.7 (12.0-15.0) % Plt Count 168 (130-450) 10^3/uL MPV 12.8 H (7.9-10.8) fL Neut # (Auto) 8.7 H (1.5-6.6) 10^3/uL Lymph # (Auto) 2.8 (1.5-3.5) 10^3/uL [place] # (Auto) 1.0 (0.0-1.0) 10^3/uL Eos # (Auto) 0.3 (0.0-0.7) 10^3/uL Baso # (Auto) 0.1 (0.0-0.1) 10^3/uL Absolute Nucleated RBC 0.00 x10^3/uL Nucleated RBC % 0.0 /100WBC APTT 28.5 (24.9-33.3) secs Sodium 138 (135-145) mmol/L Potassium 3.6 (3.5-5.0) mmol/L Chloride 103 (101-111) mmol/L Carbon Dioxide 24 (21-32) mmol/L Anion Gap 11.0 (6-13) BUN 7 (6-20) mg/dL Creatinine 0.7 (0.4-1.0) mg/dL Estimated GFR (MDRD) 86 L (>89) Glucose 146 H (70-100) mg/dL Calcium 8.7 (8.5-10.3) mg/dL Phosphorus 2.6 (2.5-4.6) mg/dL Magnesium 1.8 (1.7-2.8) mg/dL Total Bilirubin 1.4 H (0.2-1.0) mg/dL AST 331 H (10-42) IU/L ALT 212 H (10-60) IU/L Alkaline Phosphatase 125 H (42-121) IU/L Total Protein 6.5 L (6.7-8.2) g/dL Albumin 2.9 L (3.2-5.5) g/dL Globulin 3.6 (2.1-4.2) g/dL Albumin/Globulin Ratio 0.8 L (1.0-2.2) Lipase 53 H (22-51) U/L ABX Reporting Has patient been on IV antibiotics over the past 48 hours?: No Assessment/Plan - Problem List (1) Biliary acute pancreatitis Impression: - Most likely etiology determined to be recent lap gwen which was necrotic with several stones found withing the body of the gallbladder, and with stones and polyps located within the common bile duct - Pain management using dilaudid- reduced to Q6H, continue home alprazolam - Encourage PO meds, PO intake - MRCP showed no further stones in the common bile duct, but this illness is still thought to be biliary in nature - Lipid panel showing very elevated triglyceride level of 650- also another contributing factor to this pancreatitis - General surgery was consulted, has consulted given her recent cholecystectomy - Lipase is reduced to nearly normal at 53 today, which is much improved and she is tolerating meals - Pain located in her RUQ- now barely noticeable Plan: Continue to encourage PO intake Qualifiers: Acute pancreatitis complication: no infection or necrosis Qualified Code(s): K85.10 - Biliary acute pancreatitis without necrosis or infection (2) Intractable nausea and vomiting Impression: - Patient denies vomiting, and notes that her nausea is barely noticeable- now resolved - Now tolerating meals - Scheduled promethazine discontinued, IV fluids stopped Plan: Continue to treat symptoms Qualifiers: Vomiting type: unspecified Qualified Code(s): R11.2 - Nausea with vomiting, unspecified (3) RUQ abdominal pain Impression: - Patient states that for the past 5 years, she has had abdominal pain primarily in the RUQ - No radiating pain through her body into her back, and no pain in the usual place for acute pancreatitis - RUQ abdominal pain, soft palpable abdomen, no masses - Nearly resolved on exam, but now low abdomen pain possibly related to lack of bowel movements Plan: Continue to monitor (4) Depression Impression: - Patient takes Prozac at home which continues here - Not likely affecting her overall mental state Plan: Continue medication, treat acute illness Qualifiers: Depression Type: major depressive disorder Major depression episode severity: severe Psychotic features: with psychotic features (5) GERD (gastroesophageal reflux disease) Impression: - Takes a PPI at home Plan: continued while in the hospital Qualifiers: Esophagitis presence: without esophagitis Qualified Code(s): K21.9 - Gastro-esophageal reflux disease without esophagitis (6) Hypertension Impression: - Takes an ARB and BB at home, now on hold due to acute illness - Blood pressure 142/75 today Plan: Continue to monitor Qualifiers: Hypertension type: essential hypertension Qualified Code(s): I10 - Essential (primary) hypertension (7) Hypothyroidism Impression: - Takes pork thyroid at home, continues here - TSH normal at 3.71 Plan: Continue home medications Qualifiers: Hypothyroidism type: acquired Qualified Code(s): E03.9 - Hypothyroidism, unspecified (8) Insomnia Impression: - Chronic insomnia at home - Takes Prozac, Ambien, and alprazolam Plan: Continued while in the hospital Qualifiers: Insomnia type: primary Qualified Code(s): F51.01 - Primary insomnia (9) Leukocytosis Impression: - WBC count is 12.9 - No documented fevers - No complaints of sweats or chills, just pain - Could be a stress response, although looking at previous admission, this seems chronic Plan: Continue to trend CBCs Qualifiers: Leukocytosis type: unspecified Qualified Code(s): D72.829 - Elevated white blood cell count, unspecified (10) Status post laparoscopic cholecystectomy Impression: - Patient underwent a lap gwen with Dr. Segal on 05/21, with no known post-op complications - The gallbladder was noted to be necrotic at the time and pathology results show several stones within the gallbladder body - No s/s of infection noted to any of the surgical sites - steady mild WBC count elevation, no fevers - May be contributing to her acute pancreatitis Plan: Continue to monitor, treat acute illness (11) High triglycerides Impression: - Elevated triglycerides at 650 Plan: Continue to treat acute illness, may start Tricor upon discharge
[2019-06-10] MEDS ORDERED: CALCIUM CARBONATE CHEW 500 MG TABLET PO PRN (19:27)
[2019-06-10] MEDS: IRBESARTAN 75 MG PO SCH (20:32)
[2019-06-10] MEDS: METOPROLOL SUCCINATE 50 MG TABLET PO SCH (20:32)
[2019-06-10] MEDS: HYDROmorphone 0.5 MG/0.5 ML SYRINGE IVP PRN (20:32)
[2019-06-10] MEDS: ZOLPIDEM 5 MG TABLET PO SCH (22:07)
[2019-06-11] MEDS: HYDROmorphone 0.5 MG/0.5 ML SYRINGE IVP PRN (04:12)
[2019-06-11] MEDS: SODIUM CHLORIDE FLUSH 0.9% 10 ML SYRINGE IVP SCH ×2 (04:12→09:15)
[2019-06-11] MEDS: SODIUM CHLORIDE FLUSH 0.9% 10 ML SYRINGE IVP PRN ×2 (04:12→06:29)
[2019-06-11] MEDS: [UNRECOGNIZED DRUG - OTHER] PO SCH (06:26)
[2019-06-11] MEDS: ALPRAZolam 0.25 MG TABLET PO SCH (06:27)
[2019-06-11] MEDS: PANTOPRAZOLE 40 MG VIAL IVP SCH (06:28)
[2019-06-11] MEDS: oxyCODONE 5 MG TABLET PO PRN ×2 (06:28→11:38)
[2019-06-11] MEDS: FLUoxetine 10 MG CAPSULE PO SCH (07:28)
[2019-06-11 08:04] VITALS: BP 99/67
--- NOTE | 2019-06-11 08:41 | DISCHARGE SUMMARY ---
<Gideon Ashby - Last Filed: 06/11/19 14:45> Discharge Summary Admit Date: 06/07/19 Discharge Date: 06/11/19 Discharging Provider: ALMITA Fair Primary Care Provider: Mary Lara Code Status: Attempt Resuscitation Condition at Discharge: Good Discharge Disposition: 01 Home, Self Care - DIAGNOSES Admission Diagnoses: (1) Pancreatitis (2) Hypertension (3) Depression (4) Insomnia (5) GERD (gastroesophageal reflux disease) (6) Leukocytosis (7) Hypothyroidism Discharge Diagnoses with Status of Each Condition: Biliary acute pancreatitis- new on this admission, now resolved, continue on triglyceride lowering medication Intractable nausea and vomiting- resolved, tolerating meals, moving bowels RUQ abdominal pain- Now lower, diffuse, normal abdominal exam, general surgery cleared based on imaging and exam, follow up outpatient Depression- chronic, stable-unstable GERD (gastroesophageal reflux disease)- chronic, stable Hypertension- chronic, stable Hypothyroidism- chronic, stable Insomnia- chronic, stable Leukocytosis- chronic, stable Status post laparoscopic cholecystectomy- chronic, stable, surgical sites are open to air, no s/s of infection High triglycerides- found on this admission and may have contributed to this acute illness, continue on Tricor to be started at home Pre-diabetes- found on this admission, hemoglobin A1C was elevated at 6.2%, follow up with PCP Medical non-compliance- chronic, requested more narcotics on discharge, only given oxycodone #5 as narcotics will likely worsen her abdominal pain Morbid obesity with BMI of 45.0-49.9- chronic, stable, encouraged to look into water aerobics - HOSPITAL COURSE Hospital Course: (1) Pancreatitis Impression: Most likely etiology determined to be recent lap gwen which as necrotic with several stones found within the body of the gallbladder, and with the stones and polyps located within the common bile duct. MRCP done yesterday IMPRESSION: 1. Edema and ill-defined fluid surrounding the pancreatic head and adjacent duodenum may be due to acute pancreatitis. 2. Pancreatic divisum. 3. No choledocholithiasis. 4. Intrinsic T1 hyperintensity in the gallbladder fossa suggestive of hematoma. 5. Hepatic steatosis. 6. Colonic diverticulosis Elevated triglycerides to 650 Lipase downtrending, last 134, she is tolerating fulls meals. Pain to RUQ is back today, but pain has been moving location on a daily basis Plan: -Pain management with PO oxycodone/acetaminophen per home dosing -Encourage low fat, low residue, soft diet (2) Intractable nausea and vomiting Qualifiers: Vomiting type: unspecified Qualified Code(s): R11.2 - Nausea with vomiting, unspecified Denies any vomiting, nausea is reportedly mild and at her chronic baseline nausea. Not interfering with PO intake as patient is eating 100% of meals and drinking adequately. Plan: -DC with PO PRN antiemetic (4) Depression Qualifiers: Depression Type: major depressive disorder Major depression episode severity: severe Psychotic features: with psychotic features Stable. On Fluoxetine, alprazolam, hydroxyzine (5) GERD (gastroesophageal reflux disease) Qualifiers: Esophagitis presence: without esophagitis Qualified Code(s): K21.9 - Gastro-esophageal reflux disease without esophagitis Chronic, stable. Plan: Resume home PPI (6) Hypertension Qualifiers: Hypertension type: essential hypertension Qualified Code(s): I10 - Essential (primary) hypertension Stable on home ARB and BB (7) Hypothyroidism Qualifiers: Hypothyroidism type: acquired Qualified Code(s): E03.9 - Hypothyroidism, unspecified TSH checked this hospitalization and stable at 3.71, continue home medication (8) Insomnia Qualifiers: Insomnia type: primary Qualified Code(s): F51.01 - Primary insomnia Stable. Continue home meds including PRN Ambien at HS (9) Leukocytosis Qualifiers: Leukocytosis type: unspecified Qualified Code(s): D72.829 - Elevated white blood cell count, unspecified Patient has remained afebrile. No report of fever or chills. WBC 13.7 on admit, last WBC on 06/10 is 12.9. - ALLERGIES Allergies/Adverse Reactions: Allergies Allergy/AdvReac Type Severity Reaction Status Date / Time adhesive Allergy Intermediate Rash Verified 06/07/19 21:03 lorazepam [From Ativan] Allergy jittery Verified 06/07/19 21:03 aripiprazole [From Abilify] AdvReac Severe Anxiety Verified 06/07/19 21:03 cimetidine [From Tagamet] AdvReac Severe Anxiety Verified 06/07/19 21:03 cimetidine HCl * AdvReac Severe Anxiety Verified 06/07/19 21:03 [From Tagamet] diphenhydramine HCl * AdvReac Severe Anxiety Verified 06/07/19 21:03 [From Benadryl] trazodone AdvReac Severe Migraine Verified 06/07/19 21:03 Headache carbamazepine [From Tegretol] AdvReac Anxiety Unverified 06/08/19 12:57 morphine sulfate * AdvReac Nausea Verified 06/07/19 21:03 [From Mari] artificial sweetener AdvReac Intermediate mouth sores Uncoded 06/07/19 21:03 - MEDICATIONS Home Medications: Ambulatory Orders Medication Instructions Recorded Confirmed Zolpidem [Ambien] 5 mg PO HS 10/28/13 06/08/19 Alprazolam [Alprazolam Xr] 2 mg PO DAILY #10 tab.er.24h 10/13/17 06/08/19 Irbesartan 75 mg PO DAILY 05/06/19 06/08/19 Dextroamphetamine/Amphetamine 20 mg PO BID 05/20/19 06/08/19 [Dextroamp-Amphet ER 20 mg Cap] Estradiol [Vivelle-Dot] 1 patch TD MOTH 05/20/19 06/08/19 Pantoprazole [Protonix] 40 mg PO DAILY 05/20/19 06/08/19 hydrOXYzine HCl [Hydroxyzine HCl] 25 mg PO BID PRN 05/20/19 06/08/19 Alprazolam [Alprazolam Xr] 1 mg PO DAILY PM 06/08/19 06/08/19 Fluoxetine HCl 20 mg PO DAILY 06/08/19 06/08/19 Metoprolol Succinate [Toprol Xl] 50 mg PO DAILY PM 06/08/19 06/08/19 Thyroid,Pork [[place] Thyroid] 15 mg PO DAILY 06/08/19 06/08/19 oxyCODONE/ACET 5/325 [Percocet 5 1 tab PO Q4H PRN 06/08/19 06/08/19 mg/325 mg] Fenofibrate [Tricor] 134 mg PO QD #30 tablet 06/11/19 Simethicone [Anti-Gas] 180 mg PO Q6H PRN #30 capsule 06/11/19 oxyCODONE [Roxicodone] 5 mg PO Q4HR PRN #5 tablet 06/11/19 - PHYSICAL EXAM AT DISCHARGE General Appearance: positive: No acute distress, Alert Eyes Bilateral: positive: Normal inspection, PERRL, No lid inflammation, No scleral icterus ENT: positive: No signs of dehydration Neck: positive: Nml inspection, Thyroid nml, No JVD, Trachea midline Respiratory: positive: Chest non-tender, No respiratory distress, Breath sounds nml Cardiovascular: positive: Regular rate & rhythm, No murmur, No gallop. negativ e: JVD present Abdomen: positive: Tenderness (RUQ tenderness to palpation; patient reports distension ), Hepatomegaly. negative: Guarding, Rebound, Splenomegaly Back: positive: Nml inspection. negative: CVA tenderness (R), CVA tenderness (L) Skin: positive: Color nml, No rash, Warm, Dry Extremities: positive: Non-tender, Full ROM, Pedal edema, Other (LE edema up to mid tucker) Neurologic/Psychiatric: positive: Oriented x3, CN's nml (2-12), Motor nml, Sensation nml, Mood/affect nml - LABS Result Diagrams: 06/10/19 15:01 06/10/19 15:01 <Laverne Rasmussen - Last Filed: 06/11/19 15:55> Discharge Summary Discharging Provider: ALMITA De La Garza Code Status: Attempt Resuscitation - DIAGNOSES Admission Diagnoses: (1) Pancreatitis (2) Hypertension (3) Depression (4) Insomnia (5) GERD (gastroesophageal reflux disease) (6) Leukocytosis (7) Hypothyroidism Discharge Diagnoses with Status of Each Condition: Biliary acute pancreatitis- new on this admission, now resolved, continue on triglyceride lowering medication Intractable nausea and vomiting- resolved, tolerating meals, moving bowels RUQ abdominal pain- Now lower, diffuse, normal abdominal exam, general surgery cleared based on imaging and exam, follow up outpatient Depression- chronic, stable-unstable GERD (gastroesophageal reflux disease)- chronic, stable Hypertension- chronic, stable Hypothyroidism- chronic, stable Insomnia- chronic, stable Leukocytosis- chronic, stable Status post laparoscopic cholecystectomy- chronic, stable, surgical sites are open to air, no s/s of infection High triglycerides- found on this admission and may have contributed to this acute illness, continue on Tricor to be started at home Pre-diabetes- found on this admission, hemoglobin A1C was elevated at 6.2%, follow up with PCP Medical non-compliance- chronic, requested more narcotics on discharge, only given oxycodone #5 as narcotics will likely worsen her abdominal pain Morbid obesity with BMI of 45.0-49.9- chronic, stable, encouraged to look into water aerobics - HPI History of Present Illness: HPI per Dr. Marin: (modified) Tatiana Cabrales is a morbidly obese 59 year-old female who presented to the ED with complain of worsening epigastric pain. It has been slowly creeping up over the past few days and got worse to today to the point where she could not stop crying. She was brought in by her . She has been nauseous and vomiting. She was dry heaving today and had no appetite. She also reported a low grade fever with a reported Tmax of 100.4. She denied chest pain, bleeding, dizziness, dysuria, or shortness of breath. She recently underwent a cholecystectomy on 05/20/19, with no apparent post- operative complications. In the ED work up included a CT of the abd/pelvis which showed edema around the head of the pancreas, suggesting pancreatitis. As a result she is being admitted for further work up. She has not had any recent trauma or travel. She denies alcohol use. She recently stopped using monocycline Other history on her: She had steroid injections to her scalp for the first time today, done by dermatology to address alopecia. 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 She notes that she takes lasix as needed for lower extremity edema. - CONSULTS | PROCEDURES Consultations: General surgery- Dr. Kavin Jamil - PHYSICAL EXAM AT DISCHARGE General Appearance: positive: No acute distress, Alert Eyes Bilateral: positive: Normal inspection, PERRL, No lid inflammation, No scleral icterus ENT: positive: No signs of dehydration Neck: positive: Nml inspection, Thyroid nml, No JVD, Trachea midline Respiratory: positive: Chest non-tender, No respiratory distress, Breath sounds nml Cardiovascular: positive: Regular rate & rhythm, No murmur, No gallop. negative: JVD present Abdomen: positive: Nml bowel sounds, Tenderness (RLQ tenderness that is unchanged with palpation; patient reports distension, now moving her bowels without bloody stools ), Hepatomegaly Back: positive: Nml inspection Skin: positive: Color nml, No rash, Warm, Dry Extremities: positive: Non-tender, Full ROM, Nml appearance, Pedal edema (chronic BLE), Other Neurologic/Psychiatric: positive: Oriented x3, CN's nml (2-12), Motor nml, Sensation nml, Weakness, Depressed mood/affect. negative: Mood/affect nml Reflexes: Bicep (R): 3+, Bicep (L): 3+ - LABS Result Diagrams: 06/10/19 15:01 06/10/19 15:01 - FOLLOW UP Follow Up: Disposition: Home, Self Care Condition: Good Prescriptions: oxyCODONE [Roxicodone] 5 mg PO Q4HR PRN #5 tablet PRN Reason: Pain Fenofibrate [Tricor] 134 mg PO QD #30 tablet Simethicone [Anti-Gas] 180 mg PO Q6H PRN #30 capsule PRN Reason: Abdominal Pain Diet: Regular Activity Restrictions: Activity as Tolerated Health Concerns: Acute pancreatitis, Nausea, Constipation, Abdominal pain, Elevated triglycerides, Early diabetes Plan of Treatment: Start Tricor for your elevated triglyceride level, Increase your activity at home to reduce your BMI (body weight), water aerobics are easier on your joints, Keep your bowels regular to prevent constipation Care Goals: Prevent hospital stays, Reduce abdominal pain, Reduce weight to prevent diabetes, Prevent recurrence of pancreatitis by weight loss and taking Tricor to reduce triglyceride levels Assessment: You were admitted to the hospital for acute pancreatitis that improved with bowel rest and IV fluids. You were tolerating meals, your nausea resolved, and your lipase levels became normal. Your liver enzymes were elevated, but were trending down. Your triglyceride level was elevated which can be treated with a medication called Tricor. You were found to have a Hemoglobin A1 C of 6.2%. We diagnose diabetes mellitus with those people with an A1C of greater than 6.5%, so you should work to reduce your weight. Water aerobics will be easy on your joints. Please see your PCP within one week. - TIME SPENT Time Spent in Discharge (Minutes): 60
[2019-06-11] MEDS: MAGNESIUM OXIDE 400 MG TABLET PO SCH (08:45)
[2019-06-11] MEDS: SENNA 8.6 MG TABLET PO SCH (08:46)
[2019-06-11] MEDS: ARMOUR THYROID 15 MG PO SCH (08:47)
--- NOTE | 2019-06-11 08:51 | Discharge Plan ---
Discharge Plan Problem Reviewed?: Yes Disposition: Home, Self Care Condition: Good Prescriptions: oxyCODONE [Roxicodone] 5 mg PO Q4HR PRN #5 tablet PRN Reason: Pain Fenofibrate [Tricor] 134 mg PO QD #30 tablet Simethicone [Anti-Gas] 180 mg PO Q6H PRN #30 capsule PRN Reason: Abdominal Pain Diet: Regular Activity Restrictions: Activity as Tolerated Shower Restrictions: No Health Concerns: Acute pancreatitis Nausea Constipation Abdominal pain Elevated triglycerides Early diabetes Plan of Treatment: Start Tricor for your elevated triglyceride level Increase your activity at home to reduce your BMI (body weight), water aerobics are easier on your joints Keep your bowels regular to prevent constipation Care Goals: Prevent hospital stays Reduce abdominal pain Reduce weight to prevent diabetes Prevent recurrence of pancreatitis by weight loss and taking Tricor to reduce triglyceride levels Assessment: You were admitted to the hospital for acute pancreatitis that improved with bowel rest and IV fluids. You were tolerating meals, your nausea resolved, and your lipase levels became normal. Your liver enzymes were elevated, but were trending down. Your triglyceride level was elevated which can be treated with a medication called Tricor. You were found to have a Hemoglobin A1 C of 6.2%. We diagnose diabetes mellitus with those people with an A1C of greater than 6.5%, so you should work to reduce your weight. Water aerobics will be easy on your joints. Please see your PCP within one week. No Smoking: If you smoke, Please STOP! Call for help. Follow-up with: Mary Lara MD [Primary Care Provider] -
--- NOTE | 2019-06-11 09:04 | PROVIDER PROGRESS NOTE ---
Assessment/Plan - Problem List (1) Biliary acute pancreatitis Qualifiers: Acute pancreatitis complication: no infection or necrosis Qualified Code(s): K85.10 - Biliary acute pancreatitis without necrosis or infection Assessment/Plan: resolving; doing well clinically; no evidence of persistent choledocholithiasis or biliary obstruction or necrosis; Rec: ok for d/c home from surgical standpoint; she should f/u with Dr. Segal in 1-2 weeks please. - Current Meds Current Meds: Current Medications Generic Name Dose Route Start Last Admin Trade Name Freq PRN Reason Stop Dose Admin Alprazolam 1 mg 06/09/19 11:00 06/11/19 06:27 Xanax PO 0.5 mg TID MAYELA Administration Calcium Carbonate/Glycine 500 mg 06/10/19 19:27 06/10/19 21:05 Tums PO 500 mg TID PRN Administration Heartburn Fluoxetine HCl 20 mg 06/09/19 09:00 06/11/19 07:28 Prozac PO Not Given DAILY MAYELA Hydromorphone HCl 0.5 mg 06/10/19 19:38 06/11/19 04:12 Dilaudid Inj Syringe IVP 0.5 mg Q6H PRN Administration PAIN 8-10 Magnesium Oxide 400 mg 06/09/19 17:00 06/11/19 08:45 Mag Ox PO 400 mg BIDWM MAYELA Administration Metoprolol Succinate 50 mg 06/08/19 21:00 06/10/19 20:32 Toprol Xl PO 50 mg QPM MAYELA Administration Ondansetron HCl 4 mg 06/07/19 23:01 06/10/19 21:55 Zofran Inj IVP 4 mg Q6HR PRN Administration Nausea / Vomiting Oxycodone HCl 5 mg 06/08/19 16:58 06/11/19 06:28 Roxicodone PO 5 mg Q4HR PRN Administration PAIN Pantoprazole Sodium 40 mg 06/08/19 07:00 06/11/19 06:28 Protonix IVP 40 mg QDAC MAYELA Administration Patient Own Med ( 1 each 06/08/19 22:00 06/10/19 20:32 Irbesartan 75mg) PO 1 each HS MAYELA Administration Patient Own Med ( 1 each 06/09/19 09:00 06/11/19 08:47 Hodge Thyroid 15mg) PO 1 each DAILY MAYELA Administration Patient Own Med ( 1 each 06/08/19 22:00 06/11/19 06:26 Ketotifen Fum 1mg) PO 1 each TID MAYELA Administration Polyethylene Glycol 17 gm 06/08/19 09:00 06/10/19 13:35 Miralax PO 17 gm DAILY MAYELA Administration Senna 8.6 - 17.2 mg 06/10/19 10:00 06/11/19 08:46 Senokot PO 8.6 mg DAILY MAYELA Administration Sodium Chloride 10 ml 06/07/19 23:01 06/11/19 06:29 Normal Saline Flush 0.9% IVP 10 ml PRN PRN Administration NEEDED PER PROVIDER ORDERS Sodium Chloride 10 ml 06/08/19 01:00 06/11/19 04:12 Normal Saline Flush 0.9% IVP 10 ml [id number],1700 MAYELA Administration Zolpidem Tartrate 5 mg 06/08/19 21:00 06/10/19 22:07 Ambien PO 5 mg HS MAYELA Administration - Lab Result Lab results reviewed: Yes Fish Bone Diagrams: 06/10/19 15:01 06/10/19 15:01 Other Lab Results: lft's, lipase improving - Diagnostic Imaging Results Diagnostic Imaging Results: Final report reviewed Diagnostic Imaging Results Comments: MRCP showed 1 cm diameter CBD, no biliary obstruction or choledocholithiasis; it did show mild peripancreatic edema and fluid c/w acute pancreatitis without necrosis. Subjective - Subjective Patient Reports: Feeling Better, Abdominal Pain (c/o RUQ, epigastric and RLQ discomfort, improving) Objective Vital Signs: Vital Signs - 24 hr 06/10/19 06/10/19 06/11/19 16:00 23:47 08:00 Temperature 36.6 C 37.6 C H 36.9 C Heart Rate [ 85 93 67 Brachial] Respiratory 18 18 16 Rate Blood Pressure 124/52 L 99/67 [Left Radial artery] Blood Pressure 142/75 H [Right Brachial artery] O2 Saturation 92 99 93 Oxygen O2 Source [With Activity] Room air O2 Source [Without Activity] Room air O2 Source Room air Oxygen Flow Rate 2 I&O (Last 24 Hrs): Intake and Output Totals x24h 06/09/19 06/10/19 06/11/19 23:59 23:59 23:59 Intake Total 3729.583 406.667 Balance 3729.583 406.667 General: Alert, Oriented x3, Cooperative, No acute distress Neuro: Alert Abdomen: Normal bowel sounds, Soft, No tenderness, No hepatospenomegaly, No masses, Other (abd is obese but completely benign to examination.) Comments/Notes: Pt is up in chair, tolerating a regular diet without apparent discomfort. - Results Results: Laboratory Results WBC 12.9 x10^3/uL (4.8-10.8) H 06/10/19 15:01 RBC 3.26 10^6/uL (4.20-5.40) L 06/10/19 15:01 Hgb 9.7 g/dL (12.0-16.0) L 06/10/19 15:01 Hct 30.9 % (37.0-47.0) L 06/10/19 15:01 MCV 94.8 fL (81.0-99.0) 06/10/19 15:01 MCH 29.8 pg (27.0-31.0) 06/10/19 15:01 MCHC 31.4 g/dL (32.0-36.0) L 06/10/19 15:01 RDW 14.7 % (12.0-15.0) 06/10/19 15:01 Plt Count 168 10^3/uL (130-450) 06/10/19 15:01 MPV 12.8 fL (7.9-10.8) H 06/10/19 15:01 Neut # (Auto) 8.7 10^3/uL (1.5-6.6) H 06/10/19 15:01 Lymph # (Auto) 2.8 10^3/uL (1.5-3.5) 06/10/19 15:01 Harmon # (Auto) 1.0 10^3/uL (0.0-1.0) 06/10/19 15:01 Eos # (Auto) 0.3 10^3/uL (0.0-0.7) 06/10/19 15:01 Baso # (Auto) 0.1 10^3/uL (0.0-0.1) 06/10/19 15:01 Absolute Nucleated RBC 0.00 x10^3/uL 06/10/19 15:01 Nucleated RBC % 0.0 /100WBC 06/10/19 15:01 APTT 28.5 secs (24.9-33.3) 06/10/19 15:01 Sodium 138 mmol/L (135-145) 06/10/19 15:01 Potassium 3.6 mmol/L (3.5-5.0) 06/10/19 15:01 Chloride 103 mmol/L (101-111) 06/10/19 15:01 Carbon Dioxide 24 mmol/L (21-32) 06/10/19 15:01 Anion Gap 11.0 (6-13) 06/10/19 15:01 BUN 7 mg/dL (6-20) 06/10/19 15:01 Creatinine 0.7 mg/dL (0.4-1.0) 06/10/19 15:01 Estimated GFR (MDRD) 86 (>89) L 06/10/19 15:01 Glucose 146 mg/dL (70-100) H 06/10/19 15:01 Glycated Hemoglobin 6.2 % (4.6-6.2) 06/08/19 13:20 Estim Average Glucose 131 (70-100) H 06/08/19 13:20 Lactic Acid 1.4 mmol/L (0.5-2.2) 06/08/19 13:20 Calcium 8.7 mg/dL (8.5-10.3) 06/10/19 15:01 Phosphorus 2.6 mg/dL (2.5-4.6) 06/10/19 15:01 Magnesium 1.8 mg/dL (1.7-2.8) 06/10/19 15:01 Ferritin 121.3 ng/mL (11.0-306.8) 06/09/19 05:36 Total Bilirubin 1.4 mg/dL (0.2-1.0) H 06/10/19 15:01 GGT 528 IU/L (8-38) H 06/08/19 13:20 AST 331 IU/L (10-42) H 06/10/19 15:01 ALT 212 IU/L (10-60) H 06/10/19 15:01 Alkaline Phosphatase 125 IU/L (42-121) H 06/10/19 15:01 Troponin I < 0.04 ng/mL (<0.49) 06/07/19 21:09 Total Protein 6.5 g/dL (6.7-8.2) L 06/10/19 15:01 Albumin 2.9 g/dL (3.2-5.5) L 06/10/19 15:01 Globulin 3.6 g/dL (2.1-4.2) 06/10/19 15:01 Albumin/Globulin Ratio 0.8 (1.0-2.2) L 06/10/19 15:01 Triglycerides 650 mg/dL (-149) H 06/08/19 05:06 Cholesterol 164 mg/dL (-199) 06/08/19 05:06 LDL Cholesterol Direct 51 mg/dL (-129) 06/08/19 05:06 LDL Cholesterol, Calc Not Reportable 06/08/19 05:06 VLDL Cholesterol Not Reportable 06/08/19 05:06 HDL Cholesterol 20 mg/dL (60-) L 06/08/19 05:06 LDL/HDL Ratio Not Reportable 06/08/19 05:06 dLDL/HDL Ratio 2.6 (<4.4) 06/08/19 05:06 Cholesterol/HDL Ratio 8.2 (<4.4) 06/08/19 05:06 Lipase 53 U/L (22-51) H 06/10/19 15:01 TSH 3.71 uIU/mL (0.34-5.60) 06/08/19 13:20 Urine Color YELLOW 06/07/19 22:50 Urine Clarity CLEAR (CLEAR) 06/07/19 22:50 Urine pH 6.5 PH (5.0-7.5) 06/07/19 22:50 Ur Specific [place] 1.020 (1.002-1.030) 06/07/19 22:50 Urine Protein NEGATIVE mg/dL (NEGATIVE) 06/07/19 22:50 Urine Glucose (UA) NEGATIVE mg/dL (NEGATIVE) 06/07/19 22:50 Urine Ketones NEGATIVE mg/dL (NEGATIVE) 06/07/19 22:50 Urine Occult Blood NEGATIVE (NEGATIVE) 06/07/19 22:50 Urine Nitrite NEGATIVE (NEGATIVE) 06/07/19 22:50 Urine Bilirubin NEGATIVE (NEGATIVE) 06/07/19 22:50 Urine Urobilinogen 0.2 (NORMAL) E.U./dL (NORMAL) 06/07/19 22:50 Ur Leukocyte Esterase TRACE (NEGATIVE) H 06/07/19 22:50 Urine RBC 0-5 /HPF (0-5) 06/07/19 22:50 Urine WBC 0-3 /HPF (0-5) 06/07/19 22:50 Ur Squamous Epith Cells FEW Squamous (<= Few) 06/07/19 22:50 Urine Bacteria Rare /HPF (None Seen) 06/07/19 22:50 Ur Microscopic Review INDICATED 06/07/19 22:50 Urine Culture Comments INDICATED 06/07/19 22:50 Urine Opiates Screen NEGATIVE (NEGATIVE) 06/07/19 22:50 Ur Oxycodone Screen POSITIVE (NEGATIVE) H 06/07/19 22:50 Urine Methadone Screen NEGATIVE (NEGATIVE) 06/07/19 22:50 Ur Propoxyphene Screen NEGATIVE (NEGATIVE) 06/07/19 22:50 Ur Barbiturates Screen NEGATIVE (NEGATIVE) 06/07/19 22:50 Ur Tricyclics Screen NEGATIVE (NEGATIVE) 06/07/19 22:50 Ur Phencyclidine Scrn NEGATIVE (NEGATIVE) 06/07/19 22:50 Ur Amphetamine Screen POSITIVE (NEGATIVE) H 06/07/19 22:50 U Methamphetamines Scrn NEGATIVE (NEGATIVE) 06/07/19 22:50 U Benzodiazepines Scrn POSITIVE (NEGATIVE) H 06/07/19 22:50 Urine Cocaine Screen NEGATIVE (NEGATIVE) 06/07/19 22:50 U Cannabinoids Screen NEGATIVE (NEGATIVE) 06/07/19 22:50 - Procedures Procedures: Procedures RESECTION OF GALLBLADDER, PERCUTANEOUS ENDOSCOPIC APPROACH (05/20/19) VENOUS CATHETERIZATION NEC (10/09/14) ABX Reporting Has patient been on IV antibiotics over the past 48 hours?: No
[2019-06-11] MEDS ORDERED: SIMETHICONE CHEW 80 MG TABLET PO SCH (12:00)
== END 2019-06-11 14:00 | disposition home or self-care (01) | DRG 439 ==
LOC: ED 20:55 → MS2 23:01
PROVIDERS: ADMIT Internal Medicine; ATTEND Nurse Practitioner
DX: K85.10 Biliary acute pancreatitis without necrosis or infection (principal); Z68.42 Body mass index [BMI] 45.0-49.9, adult; F33.3 Major depressive disorder, recurrent, severe with psychotic symptoms; Q79.6 Ehlers-Danlos syndromes; M35.1 Other overlap syndromes; R73.03 Prediabetes; K59.00 Constipation, unspecified; I10 Essential (primary) hypertension; F51.01 Primary insomnia; K21.9 Gastro-esophageal reflux disease without esophagitis; E03.9 Hypothyroidism, unspecified; E66.01 Morbid (severe) obesity due to excess calories; B35.0 Tinea barbae and tinea capitis; Z85.42 Personal history of malignant neoplasm of other parts of uterus; Z79.899 Other long term (current) drug therapy; Z91.19 Patient's noncompliance with other medical treatment and regimen; Z90.710 Acquired absence of both cervix and uterus; Z90.49 Acquired absence of other specified parts of digestive tract; Z92.3 Personal history of irradiation; Z87.440 Personal history of urinary (tract) infections; Z87.442 Personal history of urinary calculi; Z79.2 Long term (current) use of antibiotics; Z86.69 Personal history of other diseases of the nervous system and sense organs
CPT/HCPCS: 36415; 74176; 74183; 80048; 80053; 80061; 80306; 81001; 82728; 82977; 83036; 83605; 83690; 83721; 83735; 84100; 84443; 84484; 85025; 85730; 87040; 87086; 96374; 96375; 99284; 99285; A9270; A9585; J1170; J2765; J7040; 81003

== ENCOUNTER 2019-06-16 11:48 | Emergency (ER) | payer OTHER ==
[2019-06-16] MEDS ORDERED: ONDANSETRON 4 MG/2 ML VIAL IVP STA (12:41)
[2019-06-16] MEDS ORDERED: HYDROmorphone 1 MG/ML CARPUJECT IVP STA (12:41)
[2019-06-16 13:36] LABS: BASOPHILS # (AUTO) 0.1 10^3/uL (0.0-0.1); BASOPHILS % (AUTO) 0.6 %; EOSINOPHILS # (AUTO) 0.3 10^3/uL (0.0-0.7); HGB - HEMOGLOBIN 11.8 g/dL (12.0-16.0); LYMPHOCYTES # (AUTO) 2.7 10^3/uL (1.5-3.5); LYMPHOCYTES % (AUTO) 24.1 %; MEAN CORPUSCULAR HEMOGLOBIN 30.1 pg (27.0-31.0); MEAN CORPUSCULAR HGB CONC 32.4 g/dL (32.0-36.0); MEAN CORPUSCULAR VOLUME 92.9 fL (81.0-99.0); MEAN PLATELET VOLUME 11.4 fL (7.9-10.8); MONOCYTES # (AUTO) 0.7 10^3/uL (0.0-1.0); NEUTROPHILS # (AUTO) 7.4 10^3/uL (1.5-6.6); NEUTROPHILS % (AUTO) 65.2 %; PLT - PLATELET COUNT 339 10^3/uL (130-450); RED BLOOD COUNT 3.92 10^6/uL (4.20-5.40); RED CELL DISTRIBUTION WIDTH 14.6 % (12.0-15.0); WHITE BLOOD COUNT 11.4 x10^3/uL (4.8-10.8)
--- NOTE | 2019-06-16 13:54 | ED Physician Documentation ---
History of Present Illness - Stated complaint Stated Complaint: POSTOP SGY/VOMITING - Chief complaint Chief Complaint: General - History obtained from History obtained from: Patient - History of Present Illness Timing: Yesterday Severity Comments: moderate Quality: feels like her last pancreatitis episode, sharp stabbing pain in upper abdomen Radiates to: does not radiate Improved by: nothing Worsened by: eating Associated symptoms: reports possible low grade fever of 100 en route, no GI bleeding, no cp, sob, no leg pain or swelling, no urinary symptoms, no diarrhea or constipation. - Treatment prior to arrival Treatment prior to arrival: none - Additonal information Additional information: Pt is a 59 y/o F 3 weeks s/p cholecystectomy for a reportedly gangrenous gallbladder. Afterwards she required a drain left in which has since been removed. Since then she has had an episode of pancreatitis about 10 days ago requiring admission. Her surgeon Dr. Jamil sent her to the ED for evaluation and thinks she may have a retained CBD stone. Review of Systems Ten Systems: 10 systems reviewed and negative Constitutional: denies: Fever Throat: denies: Sore throat Cardiac: reports: Reviewed and negative Respiratory: reports: Reviewed and negative GI: reports: Abdominal Pain, Nausea, Vomiting. denies: Abdominal Swelling, Constipation, Diarrhea, Hematemesis, Bloody / black stool : reports: Reviewed and negative Skin: reports: Reviewed and negative Musculoskeletal: reports: Reviewed and negative Neurologic: reports: Reviewed and negative PD PAST MEDICAL HISTORY - Past Medical History Past Medical History: Yes Cardiovascular: None, Hypertension Respiratory: None Neuro: None, Seizure disorder, Other Endocrine/Autoimmune: HyPOthyroidism GI: None [employer]: Other : Kidney stones, Other HEENT: None Psych: Depression Musculoskeletal: Other Derm: Other - Past Surgical History Past Surgical History: Yes General: Cholecystectomy /[employer]: Hysterectomy, Oophrectomy, Breast reduction - Present Medications Home Medications: Ambulatory Orders Medication Instructions Recorded Confirmed Zolpidem [Ambien] 5 mg PO HS 10/28/13 06/08/19 Alprazolam [Alprazolam Xr] 2 mg PO DAILY #10 tab.er.24h 10/13/17 06/08/19 Irbesartan 75 mg PO DAILY 05/06/19 06/08/19 Dextroamphetamine/Amphetamine 20 mg PO BID 05/20/19 06/08/19 [Dextroamp-Amphet ER 20 mg Cap] Estradiol [Vivelle-Dot] 1 patch TD MOTH 05/20/19 06/08/19 Pantoprazole [Protonix] 40 mg PO DAILY 05/20/19 06/08/19 hydrOXYzine HCl [Hydroxyzine HCl] 25 mg PO BID PRN 05/20/19 06/08/19 Alprazolam [Alprazolam Xr] 1 mg PO DAILY PM 06/08/19 06/08/19 Fluoxetine HCl 20 mg PO DAILY 06/08/19 06/08/19 Metoprolol Succinate [Toprol Xl] 50 mg PO DAILY PM 06/08/19 06/08/19 Thyroid,Pork [[place] Thyroid] 15 mg PO DAILY 06/08/19 06/08/19 oxyCODONE/ACET 5/325 [Percocet 5 1 tab PO Q4H PRN 06/08/19 06/08/19 mg/325 mg] Fenofibrate [Tricor] 134 mg PO QD #30 tablet 06/11/19 Simethicone [Anti-Gas] 180 mg PO Q6H PRN #30 capsule 06/11/19 oxyCODONE [Roxicodone] 5 mg PO Q4HR PRN #5 tablet 06/11/19 - Allergies Allergies/Adverse Reactions: Allergies Allergy/AdvReac Type Severity Reaction Status Date / Time adhesive Allergy Intermediate Rash Verified 06/16/19 13:04 lorazepam [From Ativan] Allergy jittery Verified 06/16/19 13:04 aripiprazole [From Abilify] AdvReac Severe Anxiety Verified 06/16/19 13:04 cimetidine [From Tagamet] AdvReac Severe Anxiety Verified 06/16/19 13:04 cimetidine HCl * AdvReac Severe Anxiety Verified 06/16/19 13:04 [From Tagamet] diphenhydramine HCl * AdvReac Severe Anxiety Verified 06/16/19 13:04 [From Benadryl] trazodone AdvReac Severe Migraine Verified 06/16/19 13:04 Headache carbamazepine [From Tegretol] AdvReac Anxiety Verified 06/16/19 15:26 morphine sulfate * AdvReac Nausea Verified 06/16/19 13:04 [From Mari] artificial sweetener AdvReac Intermediate mouth sores Uncoded 06/16/19 13:04 - Social History Does the pt smoke?: No Smoking Status: Never smoker Does the pt drink ETOH?: No Does the pt have substance abuse?: No - Immunizations Immunizations are current?: Yes - POLST Patient has POLST: No POLST Status: Full Code PD ED PE NORMAL - Vitals Vital signs reviewed: Yes - General General: Alert and oriented X 3, No acute distress, Well developed/nourished - HEENT HEENT: Atraumatic - Neck Neck: Supple, no meningeal sign, No JVD - Cardiac Cardiac: RRR - Respiratory Respiratory: No respiratory distress - Abdomen Abdomen: Soft, Non tender, Non distended, Other (old laparotomy scars, well healing ) - Female Female : Deferred - Rectal Rectal: Deferred - Derm Derm: Normal color, Warm and dry, No rash - Extremities Extremities: No deformity, No edema - Neuro Neuro: Alert and oriented X 3 Eye Opening: Spontaneous Motor: Obeys Commands Verbal: Oriented GCS Score: 15 - Psych Psych: Normal mood, Normal affect Results - Vitals Vitals: Vital Signs - 24 hr 06/16/19 06/16/19 06/16/19 12:03 12:22 14:09 Temperature 36.8 C 37.1 C Heart Rate 97 102 H 108 H Respiratory 20 18 22 Rate Blood Pressure 150/100 H 145/77 H 161/97 H O2 Saturation 96 96 95 06/16/19 16:30 Temperature Heart Rate 89 Respiratory 20 Rate Blood Pressure 125/91 H O2 Saturation 98 Oxygen O2 Source [With Activity] Room air O2 Source [Without Activity] Room air O2 Source Room air - Labs Labs: Laboratory Tests 06/16/19 06/16/19 13:30 13:30 WBC 11.4 H RBC 3.92 L Hgb 11.8 L Hct 36.4 L MCV 92.9 MCH 30.1 MCHC 32.4 RDW 14.6 Plt Count 339 MPV 11.4 H Neut # (Auto) 7.4 H Lymph # (Auto) 2.7 [place] # (Auto) 0.7 Eos # (Auto) 0.3 Baso # (Auto) 0.1 Absolute Nucleated RBC 0.00 Nucleated RBC % 0.0 Sodium 141 Potassium 4.0 Chloride 103 Carbon Dioxide 23 Anion Gap 15.0 H BUN 10 Creatinine 0.8 Estimated GFR (MDRD) 73 L Glucose 116 H Calcium 9.7 Total Bilirubin 0.8 AST 75 H ALT 63 H Alkaline Phosphatase 85 Total Protein 8.3 H Albumin 3.8 Globulin 4.5 H Albumin/Globulin Ratio 0.8 L Lipase 46 PD MEDICAL DECISION MAKING - ED course Complexity details: reviewed results, re-evaluated patient, considered differential, d/w patient, d/w safety consultant ED course: ddx- pancreatitis, gastritis, choledocholithiasis, post operative pain, nonspecific abdominal pain 59 y/o F w/hx and exam as above, 3 wks s/p gwen with continued vomiting, nausea. Had an episode of pancreatitis after which since resolved but then has had recurrent nausea vomiting and upper abdominal pain, reports possible low grade fever today en route. She has a mild leukocytosis. Her lipase here today is neg. She felt better after zofran but then had recurrent vomiting despite treatment with phenergan and haldol. She does say her pain improved with dilaudid. Discussed case with her surgeon doctor Omero who recommended GI consult. Consulted GI Dr Malone who recommended an MRCP here to determine disposition. If positive will transfer to [facility].
[2019-06-16 14:18] LABS: ALBUMIN 3.8 g/dL (3.2-5.5); ALBUMIN/GLOBULIN RATIO 0.8 (1.0-2.2); BILIRUBIN,TOTAL 0.8 mg/dL (0.2-1.0); CALCIUM 9.7 mg/dL (8.5-10.3); CREATININE 0.8 mg/dL (0.4-1.0); TOTAL PROTEIN 8.3 g/dL (6.7-8.2)
[2019-06-16] MEDS ORDERED: PROMETHAZINE INJ 25 MG in SODIUM CHLORIDE 0.9% 50 ML IV STA (14:46)
[2019-06-16] MEDS ORDERED: HALOPERIDOL 5 MG/ML VIAL IVP ONE (16:02)
[2019-06-16] MEDS ORDERED: ONDANSETRON ODT 4 MG TABLET TL STA (17:55)
--- NOTE | 2019-06-16 20:14 | MRI Report ---
Reason: possible retained cbd Procedure Date: 06/16/2019 Accession Number: [id number] / [id number] Procedure: MRI - MRCP W/O CPT Code: FULL RESULT: EXAM: MR ABDOMEN WITHOUT CONTRAST (MR CHOLANGIOPANCREATOGRAPHY) EXAM DATE: 06/16/2019 07:05 PM. CLINICAL HISTORY: Possible retained common bile duct. Nausea and vomiting. COMPARISON: MRCP W/WO 06/10/2019 12:13 PM ABDOMEN/PELVIS W/O 06/07/2019 9:52 PM ABDOMEN/PELVIS W/ 10/28/2013 5:02 PM. TECHNIQUE: Multiplanar breath-hold T1 and T2 sequences obtained through the abdomen on an MR scanner. Dedicated 2D and 3D MRCP sequences obtained through the biliary and pancreatic ducts. No intravenous contrast given. FINDINGS: Lung bases: No acute findings. Liver: Fatty liver. Status post cholecystectomy. Small amount of fluid again seen in the gallbladder fossa. Mildly dilated proximal common duct measuring 9 mm, and gradually tapers distally, appears decreased compared to prior. No evidence for choledocholithiasis. Pancreas: No pancreatic duct dilatation. Patent accessory pancreatic duct. No acute findings. Spleen: Unremarkable. Adrenals: Unremarkable. Kidneys: Small left upper to mid posterior renal cyst measuring 1.6 cm. Tiny renal cyst upper pole left kidney. No hydronephrosis. Bowel: Mild ascending colon diverticulosis. Fluid distended stomach. IMPRESSION: 1. Small amount of fluid again seen in the gallbladder fossa. 2. Mildly dilated proximal common duct measuring 9 mm, gradually tapers distally, appears decreased compared to the prior. No evidence for choledocholithiasis. 3. See above. RADIA
--- NOTE | 2019-06-16 20:38 | ED Physician Documentation ---
ED Addendum - Addendum Addendum: 06/16/19 20:36 Patient received an handoff from Dr. Christensen with plan to follow-up on MRCP. If MRCP is negative, patient to be discharged home. MRCP returned without evidence of retained stone or other new complication. Discussed results and recommendations at length with patient and refilled her Zofran prescription given her nausea and vomiting complaints. Also emphasized other supportive cares, diet and hydration recommendations, strict return precautions, and need for close follow-up with both primary care physician and general surgery. Disposition: Home Clinical impression: Status post cholecystectomy, nausea with vomiting
[2019-06-16 20:44] VITALS: BP 141/65
== END 2019-06-16 21:12 | disposition home or self-care (01) ==
LOC: ED 11:48
DX: R11.2 Nausea with vomiting, unspecified (principal); R10.10 Upper abdominal pain, unspecified; Z90.49 Acquired absence of other specified parts of digestive tract; I10 Essential (primary) hypertension
CPT/HCPCS: 36415; 74181; 80053; 83690; 85025; 96365; 96375; 99284; J1170; J7040; Q0162

== ENCOUNTER 2019-06-22 12:03 | Emergency (ER) | payer OTHER ==
[2019-06-22] MEDS ORDERED: SODIUM CHLORIDE 0.9% 1,000 ML IV ONE ×2 (14:03→16:46)
[2019-06-22] MEDS ORDERED: fentaNYL 100 MCG/2 ML VIAL IVP STA (14:03)
[2019-06-22] MEDS ORDERED: ONDANSETRON 4 MG/2 ML VIAL IVP STA (14:03)
--- NOTE | 2019-06-22 14:32 | ED Physician Documentation ---
PD HPI ABD PAIN - Stated complaint Stated Complaint: V/D POST SURGICAL - Chief complaint Chief Complaint: Abd Pain - History obtained from History obtained from: Patient - History of Present Illness Timing - onset: Today Timing - details: Still present Quality: Pain Location: LUQ, RLQ Associated symptoms: Nausea, Vomiting, Dysuria Similar symptoms before: Diagnosis (Pancreatitis) Recently seen: Emergency Dept (She was seen in the emergency department 5 days ago with similar symptoms. She underwent MRCP at that time which was negative.) - Additional information Additional information: The patient is a 59-year-old female who presents with left upper quadrant and right lower quadrant abdominal pain, with associated nausea and multiple episodes of vomiting. Her symptoms started during the night. She also reports dysuria. She denies fever or diarrhea. She reports feeling dehydrated. She is one-month status post laparoscopic cholecystectomy for gangrenous gallbladder, requiring postoperative drain placement. 2 weeks ago she was hospitalized with biliary pancreatitis. 5 days ago she was seen in the emergency department because of recurrent abdominal pain. She underwent MRCP at that time and it was negative. She has been doing well since that time until last night. Further past medical history is significant for uterine cancer for which she is status post hysterectomy/BSO. She has history of Nicole Danlos syndrome. Review of Systems Constitutional: denies: Fever Nose: denies: Congestion Throat: denies: Sore throat Cardiac: denies: Chest pain / pressure Respiratory: denies: Dyspnea, Cough GI: reports: Abdominal Pain, Nausea, Vomiting. denies: Diarrhea : reports: Dysuria Skin: denies: Rash Musculoskeletal: reports: Back pain. 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 SANDER: Other : Kidney stones, Other HEENT: None Psych: Depression Musculoskeletal: Other Derm: Other - Past Surgical History Past Surgical History: Yes General: Cholecystectomy /SPOOL SANDER: Hysterectomy, Oophrectomy, Breast reduction - Present Medications Home Medications: Ambulatory Orders Medication Instructions Recorded Confirmed Zolpidem [Ambien] 5 mg PO HS 10/28/13 06/08/19 Alprazolam [Alprazolam Xr] 2 mg PO DAILY #10 tab.er.24h 10/13/17 06/08/19 Irbesartan 75 mg PO DAILY 05/06/19 06/08/19 Dextroamphetamine/Amphetamine 20 mg PO BID 05/20/19 06/08/19 [Dextroamp-Amphet ER 20 mg Cap] Estradiol [Vivelle-Dot] 1 patch TD MOTH 05/20/19 06/08/19 Pantoprazole [Protonix] 40 mg PO DAILY 05/20/19 06/08/19 hydrOXYzine HCl [Hydroxyzine HCl] 25 mg PO BID PRN 05/20/19 06/08/19 Alprazolam [Alprazolam Xr] 1 mg PO DAILY PM 06/08/19 06/08/19 Fluoxetine HCl 20 mg PO DAILY 06/08/19 06/08/19 Metoprolol Succinate [Toprol Xl] 50 mg PO DAILY PM 06/08/19 06/08/19 Thyroid,Pork [[place] Thyroid] 15 mg PO DAILY 06/08/19 06/08/19 oxyCODONE/ACET 5/325 [Percocet 5 1 tab PO Q4H PRN 06/08/19 06/08/19 mg/325 mg] Fenofibrate [Tricor] 134 mg PO QD #30 tablet 06/11/19 Simethicone [Anti-Gas] 180 mg PO Q6H PRN #30 capsule 06/11/19 oxyCODONE [Roxicodone] 5 mg PO Q4HR PRN #5 tablet 06/11/19 Ondansetron Odt [Zofran] 4 mg TL Q6H PRN #10 tablet 06/16/19 Hydrocodone/Acetaminophen 1 - 2 each PO Q6H PRN #10 tablet 06/22/19 [Hydrocodon-Acetaminophen 5-325] Promethazine [Phenergan] 25 mg PO Q6H PRN #10 tab 06/22/19 - Allergies Allergies/Adverse Reactions: Allergies Allergy/AdvReac Type Severity Reaction Status Date / Time adhesive Allergy Intermediate Rash Verified 06/22/19 12:11 lorazepam [From Ativan] Allergy jittery Verified 06/22/19 12:11 aripiprazole [From Abilify] AdvReac Severe Anxiety Verified 06/22/19 12:11 cimetidine [From Tagamet] AdvReac Severe Anxiety Verified 06/22/19 12:11 cimetidine HCl * AdvReac Severe Anxiety Verified 06/22/19 12:11 [From Tagamet] diphenhydramine HCl * AdvReac Severe Anxiety Verified 06/22/19 12:11 [From Benadryl] trazodone AdvReac Severe Migraine Verified 06/22/19 12:11 Headache carbamazepine [From Tegretol] AdvReac Anxiety Verified 06/22/19 12:11 morphine sulfate * AdvReac Nausea Verified 06/22/19 12:11 [From Mari] artificial sweetener AdvReac Intermediate mouth sores Uncoded 06/22/19 12:11 - Social History Does the pt smoke?: No Smoking Status: Never smoker Does the pt drink ETOH?: No Does the pt have substance abuse?: No - Immunizations Immunizations are current?: Yes - POLST Patient has POLST: No POLST Status: Full Code PD ED PE NORMAL - Vitals Vital signs reviewed: Yes (Borderline hypertension initially.) - General General: Alert and oriented X 3, Well developed/nourished, Other (Overweight.) - HEENT HEENT: Atraumatic, Pharynx benign, Other (Alopecia at the vertex of her scalp.) - Neck Neck: Supple, no meningeal sign, No adenopathy - Cardiac Cardiac: RRR - Respiratory Respiratory: No respiratory distress, Clear bilaterally - Abdomen Abdomen: Normal bowel sounds, Soft, Other (Tenderness to palpation in the left upper quadrant, and mild tenderness in the right lower quadrant, without rebound or guarding.) - Back Back: No CVA TTP - Derm Derm: No rash - Extremities Extremities: No edema, No calf tenderness / cord - Neuro Neuro: Alert and oriented X 3, No motor deficit, Normal speech Results - Vitals Vitals: Vital Signs - 24 hr 06/22/19 06/22/19 12:06 18:14 Temperature 36.2 C L 37.3 C Heart Rate 83 77 Respiratory 20 20 Rate Blood Pressure 139/91 H 140/60 H O2 Saturation 98 99 Oxygen O2 Source [With Activity] Room air O2 Source [Without Activity] Room air O2 Source Room air - Labs Labs: Laboratory Tests 06/22/19 06/22/19 06/22/19 15:21 15:21 16:15 WBC 13.1 H RBC 4.19 L Hgb 12.5 Hct 38.3 MCV 91.4 MCH 29.8 MCHC 32.6 RDW 13.7 Plt Count 373 MPV 11.6 H Neut # (Auto) 7.5 H Lymph # (Auto) 4.1 H [place] # (Auto) 1.0 Eos # (Auto) 0.3 Baso # (Auto) 0.1 Absolute Nucleated RBC 0.00 Nucleated RBC % 0.0 Sodium 141 Potassium 3.6 Chloride 107 Carbon Dioxide 22 Anion Gap 12.0 BUN 11 Creatinine 0.8 Estimated GFR (MDRD) 73 L Glucose 101 H Calcium 9.2 Total Bilirubin 0.6 AST 63 H ALT 63 H Alkaline Phosphatase 70 Total Protein 7.5 Albumin 3.9 Globulin 3.6 Albumin/Globulin Ratio 1.1 Lipase 60 H Urine Color YELLOW Urine Clarity CLEAR Urine pH 6.0 Ur Specific [place] 1.025 Urine Protein NEGATIVE Urine Glucose (UA) NEGATIVE Urine Ketones NEGATIVE Urine Occult Blood NEGATIVE Urine Nitrite NEGATIVE Urine Bilirubin NEGATIVE Urine Urobilinogen 0.2 (NORMAL) Ur Leukocyte Esterase TRACE H Urine RBC 0-5 Urine WBC 0-3 Ur Squamous Epith Cells MOD Squamous H Urine Bacteria None Seen Ur Microscopic Review INDICATED Urine Culture Comments NOT INDICATED PD MEDICAL DECISION MAKING - ED course Complexity details: reviewed old records, reviewed results, re-evaluated patient, considered differential, d/w patient ED course: The patient's presentation is significant for recurrent abdominal pain, which she has been experiencing intermittently since cholecystectomy for gangrenous gallbladder one month ago. She has been hospitalized for biliary pancreatitis since surgery, but does not appear to have pancreatitis as the cause of her abdominal pain today. Her lipase is very minimally elevated at 60. She underwent an MRCP 5 days ago when she presented with similar symptoms, and the study was negative. Given the left upper quadrant location of her tenderness, gastritis is a consideration. I do not think repeat imaging studies would be of clinical benefit at this time. Treatment in the emergency department included administration of normal saline 2 L IV, Zofran 4 mg IV, and fentanyl 100 g IV. The patient's symptoms improved with the above treatment, and she subsequently demonstrated ability to drink fluids without recurrent nausea. She is being discharged with prescription for Phenergan and for Vicodin, 10 tablets. I discussed with her the results of her workup, symptomatic treatment and outpatient follow-up, as well as potentially worrisome signs or symptoms that should prompt reevaluation in the emergency department. Departure - Departure Disposition: 01 Home, Self Care Clinical Impression: Dehydration Abdominal pain Qualifiers: Abdominal location: left upper quadrant Qualified Code(s): R10.12 - Left upper quadrant pain Nausea and vomiting Qualifiers: Vomiting type: unspecified Vomiting Intractability: non-intractable Qualified Code(s): R11.2 - Nausea with vomiting, unspecified Condition: Stable Instructions: ED Abdominal Pain Unkn Cause, ED Nausea Vomiting Follow-Up: Mary Lara MD [Primary Care Provider] - Ronald Segal MD [Provider Admit Priv/Credential] - Prescriptions: Hydrocodone/Acetaminophen [Hydrocodon-Acetaminophen 5-325] 1 - 2 each PO Q6H PRN #10 tablet PRN Reason: pain Promethazine [Phenergan] 25 mg PO Q6H PRN #10 tab PRN Reason: Nausea / Vomiting Comments: Drink plenty of fluids. You can use Phenergan as prescribed if needed for nausea. You can use Vicodin as prescribed if needed for pain. Follow-up with your surgeon tomorrow as scheduled. Return to the emergency department if you develop increasing abdominal pain, persistent vomiting, or otherwise worsening symptoms. Discharge Date/Time: 06/22/19 19:12
[2019-06-22 15:26] LABS: BASOPHILS # (AUTO) 0.1 10^3/uL (0.0-0.1); BASOPHILS % (AUTO) 0.6 %; EOSINOPHILS # (AUTO) 0.3 10^3/uL (0.0-0.7); EOSINOPHILS % (AUTO) 2.3 %; HGB - HEMOGLOBIN 12.5 g/dL (12.0-16.0); LYMPHOCYTES # (AUTO) 4.1 10^3/uL (1.5-3.5); MEAN CORPUSCULAR HEMOGLOBIN 29.8 pg (27.0-31.0); MEAN CORPUSCULAR HGB CONC 32.6 g/dL (32.0-36.0); MEAN CORPUSCULAR VOLUME 91.4 fL (81.0-99.0); MEAN PLATELET VOLUME 11.6 fL (7.9-10.8); MONOCYTES % (AUTO) 7.8 %; NEUTROPHILS # (AUTO) 7.5 10^3/uL (1.5-6.6); NEUTROPHILS % (AUTO) 57.5 %; PLT - PLATELET COUNT 373 10^3/uL (130-450); RED BLOOD COUNT 4.19 10^6/uL (4.20-5.40); RED CELL DISTRIBUTION WIDTH 13.7 % (12.0-15.0); WHITE BLOOD COUNT 13.1 x10^3/uL (4.8-10.8)
[2019-06-22 15:44] LABS: ALBUMIN 3.9 g/dL (3.2-5.5); ALBUMIN/GLOBULIN RATIO 1.1 (1.0-2.2); BILIRUBIN,TOTAL 0.6 mg/dL (0.2-1.0); CALCIUM 9.2 mg/dL (8.5-10.3); CREATININE 0.8 mg/dL (0.4-1.0); TOTAL PROTEIN 7.5 g/dL (6.7-8.2)
[2019-06-22 16:59] LABS: BILIRUBIN,URINE NEGATIVE (NEGATIVE); GLUCOSE, URINE (UA) NEGATIVE (NEGATIVE); KETONES,URINE (UA) NEGATIVE (NEGATIVE); LEUKOCYTE ESTERASE, URINE TRACE (NEGATIVE); NITRITE,URINE NEGATIVE (NEGATIVE); OCCULT BLOOD,URINE NEGATIVE (NEGATIVE); PROTEIN,URINE NEGATIVE (NEGATIVE); UROBILINOGEN,URINE 0.2 (NORMAL) E.U./dL (NORMAL)
[2019-06-22 17:08] LABS: BACTERIA,URINE None Seen /HPF (None Seen); CLARITY,URINE CLEAR (CLEAR); RBC,URINE 0-5 /HPF (0-5); SQUAMOUS EPITHELIAL CELL,UR MOD Squamous (<= Few)
[2019-06-22 18:14] VITALS: BP 140/60
== END 2019-06-22 19:12 | disposition home or self-care (01) ==
LOC: ED 12:03
DX: E86.0 Dehydration (principal); R10.12 Left upper quadrant pain; R10.31 Right lower quadrant pain; R11.2 Nausea with vomiting, unspecified; R30.0 Dysuria; I10 Essential (primary) hypertension; Q79.6 Ehlers-Danlos syndromes; Z90.49 Acquired absence of other specified parts of digestive tract; Z87.19 Personal history of other diseases of the digestive system; Z85.42 Personal history of malignant neoplasm of other parts of uterus; Z90.710 Acquired absence of both cervix and uterus; Z90.722 Acquired absence of ovaries, bilateral
CPT/HCPCS: 36415; 80053; 81001; 81003; 83690; 85025; 87086; 96361; 96374; 99284

== ENCOUNTER 2019-11-13 15:52 | Outpatient (CLI) | payer OTHER ==
[2019-11-13 16:11] LABS: BASOPHILS # (AUTO) 0.1 10^3/uL (0.0-0.1); BASOPHILS % (AUTO) 0.5 %; EOSINOPHILS # (AUTO) 0.3 10^3/uL (0.0-0.7); EOSINOPHILS % (AUTO) 1.8 %; HGB - HEMOGLOBIN 13.3 g/dL (12.0-16.0); LYMPHOCYTES # (AUTO) 3.9 10^3/uL (1.5-3.5); LYMPHOCYTES % (AUTO) 25.2 %; MEAN CORPUSCULAR HEMOGLOBIN 31.4 pg (27.0-31.0); MEAN CORPUSCULAR HGB CONC 33.3 g/dL (32.0-36.0); MEAN CORPUSCULAR VOLUME 94.3 fL (81.0-99.0); MEAN PLATELET VOLUME 11.7 fL (7.9-10.8); MONOCYTES # (AUTO) 0.9 10^3/uL (0.0-1.0); MONOCYTES % (AUTO) 5.8 %; NEUTROPHILS # (AUTO) 10.3 10^3/uL (1.5-6.6); NEUTROPHILS % (AUTO) 66.2 %; PLT - PLATELET COUNT 260 10^3/uL (130-450); RED BLOOD COUNT 4.24 10^6/uL (4.20-5.40); RED CELL DISTRIBUTION WIDTH 13.2 % (12.0-15.0); WHITE BLOOD COUNT 15.5 x10^3/uL (4.8-10.8)
[2019-11-13 16:33] LABS: ALBUMIN/GLOBULIN RATIO 1.1 (1.0-2.2); BILIRUBIN,TOTAL 0.5 mg/dL (0.2-1.0); CALCIUM 9.6 mg/dL (8.5-10.3); CREATININE 0.8 mg/dL (0.4-1.0); TOTAL PROTEIN 7.7 g/dL (6.7-8.2)
== END 2019-11-13 23:59 | disposition home or self-care (01) ==
LOC: LAB 15:52
PROVIDERS: ATTEND Surgery
DX: K21.9 Gastro-esophageal reflux disease without esophagitis (principal); R10.30 Lower abdominal pain, unspecified; Q43.8 Other specified congenital malformations of intestine; R13.10 Dysphagia, unspecified
CPT/HCPCS: 36415; 80053; 82550; 84443; 85025

== ENCOUNTER 2021-02-14 19:11 | Outpatient (CLI) | payer OTHER ==
[2021-02-14 19:33] LABS: BASOPHILS # (AUTO) 0.1 10^3/uL (0.0-0.1); BASOPHILS % (AUTO) 0.5 %; EOSINOPHILS # (AUTO) 0.5 10^3/uL (0.0-0.7); EOSINOPHILS % (AUTO) 3.7 %; HCT - HEMATOCRIT 37.9 % (37.0-47.0); HGB - HEMOGLOBIN 12.6 g/dL (12.0-16.0); LYMPHOCYTES # (AUTO) 3.8 10^3/uL (1.5-3.5); LYMPHOCYTES % (AUTO) 29.9 %; MEAN CORPUSCULAR HEMOGLOBIN 33.1 pg (27.0-31.0); MEAN CORPUSCULAR HGB CONC 33.2 g/dL (32.0-36.0); MEAN CORPUSCULAR VOLUME 99.5 fL (81.0-99.0); MEAN PLATELET VOLUME 11.4 fL (7.9-10.8); MONOCYTES # (AUTO) 0.7 10^3/uL (0.0-1.0); MONOCYTES % (AUTO) 5.1 %; NEUTROPHILS # (AUTO) 7.7 10^3/uL (1.5-6.6); NEUTROPHILS % (AUTO) 59.9 %; PLT - PLATELET COUNT 307 10^3/uL (130-450); RED BLOOD COUNT 3.81 10^6/uL (4.20-5.40); RED CELL DISTRIBUTION WIDTH 12.6 % (12.0-15.0); WHITE BLOOD COUNT 12.8 x10^3/uL (4.8-10.8)
[2021-02-14 19:46] LABS: ALBUMIN 3.4 g/dL (3.2-5.5); ALBUMIN/GLOBULIN RATIO 0.9 (1.0-2.2); BILIRUBIN,TOTAL 0.5 mg/dL (0.2-1.0); CALCIUM 9.6 mg/dL (8.5-10.3); CREATININE 0.8 mg/dL (0.4-1.0); POTASSIUM 3.8 mmol/L (3.5-5.0); TOTAL PROTEIN 7.2 g/dL (6.7-8.2)
== END 2021-02-14 19:12 | disposition home or self-care (01) ==
LOC: LAB 19:11
PROVIDERS: ATTEND Family Medicine
DX: F31.9 Bipolar disorder, unspecified (principal); R79.89 Other specified abnormal findings of blood chemistry; R53.82 Chronic fatigue, unspecified; E03.9 Hypothyroidism, unspecified
CPT/HCPCS: 36415; 80053; 80178; 84443; 85025

== ENCOUNTER 2021-02-23 16:08 | Emergency (ER) | payer OTHER ==
[2021-02-23] MEDS ORDERED: SODIUM CHLORIDE 0.9% 1,000 ML IV STA (16:22)
[2021-02-23 17:08] LABS: BASOPHILS # (AUTO) 0.1 10^3/uL (0.0-0.1); BASOPHILS % (AUTO) 0.4 %; EOSINOPHILS # (AUTO) 0.3 10^3/uL (0.0-0.7); EOSINOPHILS % (AUTO) 2.6 %; HCT - HEMATOCRIT 35.4 % (37.0-47.0); HGB - HEMOGLOBIN 11.6 g/dL (12.0-16.0); LYMPHOCYTES # (AUTO) 2.4 10^3/uL (1.5-3.5); LYMPHOCYTES % (AUTO) 19.1 %; MEAN CORPUSCULAR HEMOGLOBIN 32.6 pg (27.0-31.0); MEAN CORPUSCULAR HGB CONC 32.8 g/dL (32.0-36.0); MEAN CORPUSCULAR VOLUME 99.4 fL (81.0-99.0); MONOCYTES # (AUTO) 0.7 10^3/uL (0.0-1.0); NEUTROPHILS # (AUTO) 8.8 10^3/uL (1.5-6.6); NEUTROPHILS % (AUTO) 71.2 %; PLT - PLATELET COUNT 248 10^3/uL (130-450); RED BLOOD COUNT 3.56 10^6/uL (4.20-5.40); RED CELL DISTRIBUTION WIDTH 12.3 % (12.0-15.0); WHITE BLOOD COUNT 12.4 x10^3/uL (4.8-10.8)
[2021-02-23 17:14] LABS: BILIRUBIN,URINE NEGATIVE (NEGATIVE); GLUCOSE, URINE (UA) NEGATIVE (NEGATIVE); KETONES,URINE (UA) NEGATIVE (NEGATIVE); LEUKOCYTE ESTERASE, URINE NEGATIVE (NEGATIVE); NITRITE,URINE NEGATIVE (NEGATIVE); OCCULT BLOOD,URINE NEGATIVE (NEGATIVE); PH,URINE 7.5 PH (5.0-7.5); PROTEIN,URINE NEGATIVE (NEGATIVE); UROBILINOGEN,URINE 0.2 (NORMAL) E.U./dL (NORMAL)
[2021-02-23 17:15] LABS: CLARITY,URINE CLEAR (CLEAR)
[2021-02-23] MEDS ORDERED: PROMETHAZINE INJ 25 MG in SODIUM CHLORIDE 0.9% 50 ML IV STA (17:20)
[2021-02-23 17:21] LABS: ALBUMIN 3.8 g/dL (3.2-5.5); ALBUMIN/GLOBULIN RATIO 1.1 (1.0-2.2); BILIRUBIN,TOTAL 1.3 mg/dL (0.2-1.0); CALCIUM 9.5 mg/dL (8.5-10.3); POTASSIUM 4.1 mmol/L (3.5-5.0); TOTAL PROTEIN 7.3 g/dL (6.7-8.2)
--- NOTE | 2021-02-23 17:21 | ED Physician Documentation ---
History of Present Illness - Stated complaint Stated Complaint: DIARRHEA/NAUSEA - Chief complaint Chief Complaint: Abd Pain - History obtained from History obtained from: Patient - History of Present Illness Timing: Today Pain level max: 0 Pain level now: 0 - Additonal information Additional information: Patient is a 60-year-old female who is brought into the emergency department by her for diarrhea today. She has had vomiting as well. Nothing seems to make it better or worse. She recently spent 6 weeks at [facility], behavioral health unit for bipolar with yonatan. states that she is still not sleeping very well at home. She is not homicidal or suicidal. Sometimes is confused and her speech. She is on lithium, had a lithium level checked 2 days ago, but does not know the results. No fevers. No chills. No recent antibiotics. Patient is a poor historian in the emergency department Review of Systems Ten Systems: 10 systems reviewed and negative Constitutional: denies: Fever, Chills Respiratory: denies: Cough GI: reports: Vomiting, Diarrhea. denies: Abdominal Pain : denies: Dysuria Skin: denies: Rash Musculoskeletal: denies: Neck pain, Back pain Neurologic: denies: Headache Psychiatric: reports: Anxiety, Insomnia. 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 : Kidney stones, Other HEENT: None Psych: Depression Musculoskeletal: Other Derm: Other - Past Surgical History Past Surgical History: Yes General: Cholecystectomy /FOUNDRY SUPERVISOR: Hysterectomy, Oophrectomy, Breast reduction - Present Medications Home Medications: Ambulatory Orders Medication Instructions Recorded Confirmed Zolpidem [Ambien] 10 mg PO HS 10/28/13 06/08/19 Irbesartan 75 mg PO DAILY 05/06/19 06/08/19 Estradiol [Vivelle-Dot] 1 patch TD MOTH 05/20/19 06/08/19 Pantoprazole [Protonix] 40 mg PO DAILY 05/20/19 06/08/19 Alprazolam [Alprazolam Xr] 0.5 mg PO TID PRN 06/08/19 06/08/19 Ondansetron Odt [Zofran] 4 mg TL Q6H PRN #10 tablet 06/16/19 Promethazine [Phenergan] 25 mg PO Q6H PRN #10 tab 06/22/19 Albuterol Sulfate [Proair Hfa 2 puffs INH Q4HR PRN 02/23/21 02/23/21 Inhaler] Clindamycin Phosphate [Cleocin T] 1 02/23/21 Clobetasol 0.05% Oint [Temovate 1 02/23/21 0.05% Oint] Cromolyn Sodium 200 mg PO QID 02/23/21 02/23/21 Folic Acid 1 mg PO DAILY 02/23/21 02/23/21 HYDROcodone/ACET 10/325 [[place] 10 1 tab PO BID PRN 02/23/21 02/23/21 mg/325 mg] [place] [[place] Carbonate] 900 mg PO HS 02/23/21 02/23/21 Losartan [Cozaar] 100 mg PO DAILY 02/23/21 02/23/21 Magnesium Oxide [Magnesium] 400 mg PO DAILY 02/23/21 02/23/21 Melatonin 10 mg PO HS 02/23/21 02/23/21 Methylphenidate [Daytrana] 1 patch TD 02/23/21 Multivitamin 1 tab PO DAILY 02/23/21 02/23/21 OLANZapine [Zyprexa] 7.5 mg PO HS 02/23/21 02/23/21 Potassium Chloride [K-Dur] 20 meq PO DAILY 02/23/21 02/23/21 Promethazine [Phenergan] 25 mg PO Q6H PRN #10 tab 02/23/21 QUEtiapine [SEROquel] 50 mg PO HS 02/23/21 02/23/21 Senna [Senokot] 8.6 mg PO BID 02/23/21 02/23/21 - Allergies Allergies/Adverse Reactions: Allergies Allergy/AdvReac Type Severity Reaction Status Date / Time adhesive Allergy Intermediate Rash Verified 02/23/21 16:16 lorazepam [From Ativan] Allergy jittery Verified 02/23/21 16:16 aripiprazole [From Abilify] AdvReac Severe Anxiety Verified 02/23/21 16:16 cimetidine [From Tagamet] AdvReac Severe Anxiety Verified 02/23/21 16:16 cimetidine HCl * AdvReac Severe Anxiety Verified 02/23/21 16:16 [From Tagamet] diphenhydramine HCl * AdvReac Severe Anxiety Verified 02/23/21 16:16 [From Benadryl] trazodone AdvReac Severe Migraine Verified 02/23/21 16:16 Headache carbamazepine [From Tegretol] AdvReac Anxiety Verified 02/23/21 16:16 morphine sulfate * AdvReac Nausea Verified 02/23/21 16:16 [From Mari] artificial sweetener AdvReac Intermediate mouth sores Uncoded 02/23/21 16:16 - Social History Does the pt smoke?: No Smoking Status: Never smoker Does the pt drink ETOH?: No Does the pt have substance abuse?: No - Immunizations Immunizations are current?: Yes - POLST Patient has POLST: No POLST Status: Full Code PD ED PE NORMAL - Vitals Vital signs reviewed: Yes - General General: No acute distress, Well developed/nourished, Other (alert, oriented to person, place, and year.) - HEENT HEENT: Atraumatic, PERRL, Moist mucous membranes - Neck Neck: Supple, no meningeal sign - Cardiac Cardiac: RRR, Strong equal pulses - Respiratory Respiratory: No respiratory distress, Clear bilaterally - Abdomen Abdomen: Soft, Non tender, Non distended - Derm Derm: Warm and dry, No rash - Extremities Extremities: No edema - Neuro Neuro: No motor deficit, No sensory deficit, Normal speech - Psych Psych: Normal mood, Normal affect Results - Vitals Vitals: Vital Signs - 24 hr 02/23/21 02/23/21 16:17 19:10 Temperature 36.7 C 37.3 C Heart Rate 93 88 Respiratory 22 18 Rate Blood Pressure 187/93 H 148/74 H O2 Saturation 97 96 Oxygen O2 Source [With Activity] Room air O2 Source [Without Activity] Room air O2 Source Room air - Labs Labs: Laboratory Tests 02/23/21 02/23/21 02/23/21 16:25 17:03 17:03 WBC 12.4 H RBC 3.56 L Hgb 11.6 L Hct 35.4 L MCV 99.4 H MCH 32.6 H MCHC 32.8 RDW 12.3 Plt Count 248 MPV 11.0 H Neut # (Auto) 8.8 H Lymph # (Auto) 2.4 Real # (Auto) 0.7 Eos # (Auto) 0.3 Baso # (Auto) 0.1 Absolute Nucleated RBC 0.00 Nucleated RBC % 0.0 Sodium 138 Potassium 4.1 Chloride 102 Carbon Dioxide 26 Anion Gap 10.0 BUN 12 Creatinine 1.0 Estimated GFR (MDRD) 57 L Glucose 116 H POC Whole Bld Glucose 113 H Calcium 9.5 Total Bilirubin 1.3 H AST 46 H ALT 34 Alkaline Phosphatase 61 Total Protein 7.3 Albumin 3.8 Globulin 3.5 Albumin/Globulin Ratio 1.1 Lipase 35 Urine Color Urine Clarity Urine pH Ur Specific [place] Urine Protein Urine Glucose (UA) Urine Ketones Urine Occult Blood Urine Nitrite Urine Bilirubin Urine Urobilinogen Ur Leukocyte Esterase Ur Microscopic Review Urine Culture Comments Last Dose Date Last Dose Time [place] 02/23/21 02/23/21 17:03 17:08 WBC RBC Hgb Hct MCV MCH MCHC RDW Plt Count MPV Neut # (Auto) Lymph # (Auto) Real # (Auto) Eos # (Auto) Baso # (Auto) Absolute Nucleated RBC Nucleated RBC % Sodium Potassium Chloride Carbon Dioxide Anion Gap BUN Creatinine Estimated GFR (MDRD) Glucose POC Whole Bld Glucose Calcium Total Bilirubin AST ALT Alkaline Phosphatase Total Protein Albumin Globulin Albumin/Globulin Ratio Lipase Urine Color YELLOW Urine Clarity CLEAR Urine pH 7.5 Ur Specific [place] 1.010 Urine Protein NEGATIVE Urine Glucose (UA) NEGATIVE Urine Ketones NEGATIVE Urine Occult Blood NEGATIVE Urine Nitrite NEGATIVE Urine Bilirubin NEGATIVE Urine Urobilinogen 0.2 (NORMAL) Ur Leukocyte Esterase NEGATIVE Ur Microscopic Review NOT INDICATED Urine Culture Comments NOT INDICATED Last Dose Date Not Reportable Last Dose Time Not Reportable [place] 1.03 PD MEDICAL DECISION MAKING - ED course Complexity details: reviewed results, re-evaluated patient, considered differential, d/w patient, d/w family ED course: Patient feels better after Xanax and Phenergan. Tolerating p.o. without difficulty. Has chronic leukocytosis. No significant acute lab abnormalities. Appears to be a viral gastroenteritis. Patient is well-appearing, nontoxic. Afebrile. Does have mild confusion but no change for the past several months. She sees her doctor in the morning tomorrow and we will have her reevaluated at that point. is comfortable taking her home at this time. Patient and family counseled regarding signs and symptoms for which I believe and urgent re- evaluation would be necessary. Patient with good understanding of and agreement to plan and is comfortable going home at this time This document was made in part using voice recognition software. While efforts are made to proofread this document, sound alike and grammatical errors may occur. Departure - Departure Disposition: 01 Home, Self Care Clinical Impression: Viral gastroenteritis Condition: Good Instructions: ED Gastroenteritis Viral Follow-Up: Leah Katz MD [Primary Care Provider] - Tomorrow Prescriptions: Promethazine [Phenergan] 25 mg PO Q6H PRN #10 tab PRN Reason: Nausea / Vomiting Comments: You can use the promethazine at home for vomiting. Follow-up with your doctor tomorrow for further care as scheduled. Return if you worsen. Drink plenty of fluids. This should improve over the next 2 to 3 days. Discharge Date/Time: 02/23/21 19:16
[2021-02-23 17:35] LABS: LITHIUM 1.03 mmol/L
[2021-02-23] MEDS ORDERED: ALPRAZolam 0.25 MG TABLET PO STA (18:45)
[2021-02-23 19:11] VITALS: BP 148/74
--- OUTSIDE RECORDS SUMMARY | 2021-02-26 02:45 | EXTERNAL MEDICAL SUMMARY RPT | Continuity of Care Document ---
:1960 Demographics Phone Unavailable Preferred Language Unknown Marital Status Unknown Christianity Affiliation Unknown Race Unknown Ethnic Group Unknown Author Organization [facility] Address [address] [place] [address] Phone Problems date description facility [id number] [facility] Social History date description facility [id number]
== END 2021-02-23 19:16 | disposition home or self-care (01) ==
LOC: ED 16:08
DX: A08.4 Viral intestinal infection, unspecified (principal); R41.0 Disorientation, unspecified; I10 Essential (primary) hypertension
CPT/HCPCS: 36415; 80053; 80178; 81003; 83690; 85025; 96365; 99284; A9270; J7040; 81001; 87086

== ENCOUNTER 2021-04-02 14:13 | Outpatient (CLI) | payer OTHER ==
--- NOTE | 2021-04-02 15:42 | DEXA Report ---
PROCEDURE: Dexa Spine and/or Hip INDICATIONS: OSTEOPENIA, POSTMENOPAUSAL TECHNIQUE: Dual energy x-ray absorptiometry (DXA) was performed on a Evento System. Regions measur ed are the AP Spine, femoral neck, and if needed forearm. COMPARISON: None. FINDINGS: Lumbar Spine: Bone Mineral Density 1.082 g/cm/cm,T score -0.8, Left Femoral Neck: Bone Mineral Density 1.055 g/cm/cm, T score 0.4, (T score greater or equal to -1.0: NORMAL) (T score from -1.1 to -2.4: OSTEOPENIA) (T score less than or equal to -2.5 to: OSTEOPOROSIS) Impression: Normal Patients with diagnosis of osteoporosis or osteopenia should have regular bone mineral density assess ment. For those eligible for Medicare, routine testing is allowed once every 2 years. Testing frequ ency can be increased for patients who have rapidly progressing disease or for those who are receivin g medical therapy to restore bone mass. Reviewed by: Hemant Hester MD on 04/02/2021 3:40 PM PDT Approved by: Hemant Hester MD on 04/02/2021 3:40 PM PDT Station ID: [id number]
== END 2021-04-02 14:14 | disposition home or self-care (01) ==
LOC: DI 14:13
PROVIDERS: ATTEND Family Medicine
DX: M85.80 Other specified disorders of bone density and structure, unspecified site (principal); Z78.0 Asymptomatic menopausal state

== ENCOUNTER 2021-10-08 11:15 | Outpatient (CLI) | payer OTHER | END 2021-10-08 11:16 | disposition critical access hospital (66) | LOC: EMS 11:15 | DX: R45.851 Suicidal ideations (principal) | CPT/HCPCS: A0425; A0429 ==

== ENCOUNTER 2021-10-08 11:37 | Emergency (ER) | payer OTHER ==
[2021-10-08 12:03] VITALS: BP 137/67
--- NOTE | 2021-10-08 12:18 | ED Physician Documentation ---
PD HPI MHE - Stated complaint Stated Complaint: SI - Chief complaint Chief Complaint: MHE - History obtained from History obtained from: Patient, EMS - History of Present Illness Primary symptom: Depression Timing - onset: Today Pain level max: 0 Pain level now: 0 - Additional information Additional information: states her daughter last night or today. She found out today. States suicidal thoughts. Does not currently have a plan. She states that she received a psychiatry referral yesterday and is going to be following up with a psychiatrist for her PTSD. She states that this time she would like to go home and be with her . She wants to be around family today. 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 : Kidney stones, Other HEENT: None Psych: Depression Musculoskeletal: Other Derm: Other - Past Surgical History Past Surgical History: Yes General: Cholecystectomy /PHOTO BOOTH OPERATOR: Hysterectomy, Oophrectomy, Breast reduction - Present Medications Home Medications: Ambulatory Orders Medication Instructions Recorded Confirmed Zolpidem [Ambien] 10 mg PO HS 10/28/13 06/08/19 Irbesartan 75 mg PO DAILY 05/06/19 06/08/19 Estradiol [Vivelle-Dot] 1 patch TD MOTH 05/20/19 06/08/19 Pantoprazole [Protonix] 40 mg PO DAILY 05/20/19 06/08/19 Alprazolam [Alprazolam Xr] 0.5 mg PO TID PRN 06/08/19 06/08/19 Ondansetron Odt [Zofran] 4 mg TL Q6H PRN #10 tablet 06/16/19 Promethazine [Phenergan] 25 mg PO Q6H PRN #10 tab 06/22/19 Albuterol Sulfate [Proair Hfa 2 puffs INH Q4HR PRN 02/23/21 02/23/21 Inhaler] Clindamycin Phosphate [Cleocin T] 1 02/23/21 Clobetasol 0.05% Oint [Temovate 1 02/23/21 0.05% Oint] Cromolyn Sodium 200 mg PO QID 02/23/21 02/23/21 Folic Acid 1 mg PO DAILY 02/23/21 02/23/21 HYDROcodone/ACET 10/325 [[place] 10 1 tab PO BID PRN 02/23/21 02/23/21 mg/325 mg] Summit [[place]mit Carbonate] 900 mg PO HS 02/23/21 02/23/21 Losartan [Cozaar] 100 mg PO DAILY 02/23/21 02/23/21 Magnesium Oxide [Magnesium] 400 mg PO DAILY 02/23/21 02/23/21 Melatonin 10 mg PO HS 02/23/21 02/23/21 Methylphenidate [Daytrana] 1 patch TD 02/23/21 Multivitamin 1 tab PO DAILY 02/23/21 02/23/21 OLANZapine [Zyprexa] 7.5 mg PO HS 02/23/21 02/23/21 Potassium Chloride [K-Dur] 20 meq PO DAILY 02/23/21 02/23/21 Promethazine [Phenergan] 25 mg PO Q6H PRN #10 tab 02/23/21 QUEtiapine [SEROquel] 50 mg PO HS 02/23/21 02/23/21 Senna [Senokot] 8.6 mg PO BID 02/23/21 02/23/21 - Allergies Allergies/Adverse Reactions: Allergies Allergy/AdvReac Type Severity Reaction Status Date / Time adhesive Allergy Intermediate Rash Verified 10/08/21 11:57 lorazepam [From Ativan] Allergy jittery Verified 10/08/21 11:57 aripiprazole [From Abilify] AdvReac Severe Anxiety Verified 10/08/21 11:57 cimetidine [From Tagamet] AdvReac Severe Anxiety Verified 10/08/21 11:57 cimetidine HCl * AdvReac Severe Anxiety Verified 10/08/21 11:57 [From Tagamet] diphenhydramine HCl * AdvReac Severe Anxiety Verified 10/08/21 11:57 [From Benadryl] trazodone AdvReac Severe Migraine Verified 10/08/21 11:57 Headache carbamazepine [From Tegretol] AdvReac Anxiety Verified 10/08/21 11:57 morphine sulfate * AdvReac Nausea Verified 10/08/21 11:57 [From Mari] artificial sweetener AdvReac Intermediate mouth sores Uncoded 10/08/21 11:57 - Social History Does the pt smoke?: No Smoking Status: Never smoker Does the pt drink ETOH?: No Does the pt have substance abuse?: No - Immunizations Immunizations are current?: Yes - POLST Patient has POLST: No POLST Status: Full Code PD ED PE NORMAL - Vitals Vital signs reviewed: Yes - General General: Alert and oriented X 3, No acute distress, Well developed/nourished - HEENT HEENT: PERRL, Moist mucous membranes - Neck Neck: Supple, no meningeal sign - Cardiac Cardiac: RRR - Respiratory Respiratory: No respiratory distress, Clear bilaterally - Abdomen Abdomen: Soft, Non tender, Non distended - Derm Derm: Warm and dry - Extremities Extremities: No edema, No calf tenderness / cord - Neuro Neuro: Alert and oriented X 3 - Psych Psych: Normal mood, Normal affect Results - Vitals Vitals: Vital Signs - 24 hr 10/08/21 11:47 Temperature 37.3 C Heart Rate 73 Respiratory 18 Rate Blood Pressure 137/67 H O2 Saturation 99 Oxygen O2 Source [With Activity] Room air O2 Source [Without Activity] Room air O2 Source Room air - Labs Labs: Laboratory Tests 10/08/21 10/08/21 10/08/21 12:23 12:23 12:23 WBC 10.3 RBC 4.24 Hgb 13.5 Hct 40.3 MCV 95.0 MCH 31.8 H MCHC 33.5 RDW 12.4 Plt Count 224 MPV 12.0 H Neut # (Auto) 6.4 Lymph # (Auto) 2.8 Schleicher # (Auto) 0.8 Eos # (Auto) 0.1 Baso # (Auto) 0.1 Absolute Nucleated RBC 0.00 Nucleated RBC % 0.0 Sodium 137 Potassium 4.2 Chloride 101 Carbon Dioxide 23 Anion Gap 13.0 BUN 25 H Creatinine 1.0 Estimated GFR (MDRD) 56 L Glucose 129 H Calcium 9.3 Total Bilirubin 0.7 AST 242 H ALT 190 H Alkaline Phosphatase 87 Total Protein 7.5 Albumin 4.2 Globulin 3.3 Albumin/Globulin Ratio 1.3 Lipase 75 H TSH 2.18 Urine Color Urine Clarity Urine pH Ur Specific [place] Urine Protein Urine Glucose (UA) Urine Ketones Urine Occult Blood Urine Nitrite Urine Bilirubin Urine Urobilinogen Ur Leukocyte Esterase Urine RBC Urine WBC Ur Squamous Epith Cells Urine Bacteria Ur Microscopic Review Urine Culture Comments Salicylates < 6.0 Urine Opiates Screen Ur Oxycodone Screen Urine Methadone Screen Ur Propoxyphene Screen Acetaminophen < 10 L Ur Barbiturates Screen Ur Tricyclics Screen Ur Phencyclidine Scrn Ur Amphetamine Screen U Methamphetamines Scrn U Benzodiazepines Scrn Urine Cocaine Screen U Cannabinoids Screen Ethyl Alcohol < 5.0 10/08/21 12:52 WBC RBC Hgb Hct MCV MCH MCHC RDW Plt Count MPV Neut # (Auto) Lymph # (Auto) Schleicher # (Auto) Eos # (Auto) Baso # (Auto) Absolute Nucleated RBC Nucleated RBC % Sodium Potassium Chloride Carbon Dioxide Anion Gap BUN Creatinine Estimated GFR (MDRD) Glucose Calcium Total Bilirubin AST ALT Alkaline Phosphatase Total Protein Albumin Globulin Albumin/Globulin Ratio Lipase TSH Urine Color YELLOW Urine Clarity CLEAR Urine pH 5.5 Ur Specific [place] 1.020 Urine Protein NEGATIVE Urine Glucose (UA) NEGATIVE Urine Ketones NEGATIVE Urine Occult Blood SMALL H Urine Nitrite NEGATIVE Urine Bilirubin NEGATIVE Urine Urobilinogen 0.2 (NORMAL) Ur Leukocyte Esterase TRACE H Urine RBC 0-5 Urine WBC 4-5 Ur Squamous Epith Cells FEW Squamous Urine Bacteria Few Ur Microscopic Review INDICATED Urine Culture Comments INDICATED Salicylates Urine Opiates Screen POSITIVE H Ur Oxycodone Screen NEGATIVE Urine Methadone Screen NEGATIVE Ur Propoxyphene Screen NEGATIVE Acetaminophen Ur Barbiturates Screen NEGATIVE Ur Tricyclics Screen NEGATIVE Ur Phencyclidine Scrn NEGATIVE Ur Amphetamine Screen NEGATIVE U Methamphetamines Scrn NEGATIVE U Benzodiazepines Scrn POSITIVE H Urine Cocaine Screen NEGATIVE U Cannabinoids Screen NEGATIVE Ethyl Alcohol PD MEDICAL DECISION MAKING - ED course Complexity details: reviewed results, re-evaluated patient, considered differential, d/w patient, d/w erp implementation consultant ED course: 61-year-old female with a grief reaction. This is complicated by underlying depression. She was given a dose of Valium here and feels better. She has medication at home. Has a plan in place for follow-up. Is able to contract for safety. Her is comfortable having her at home as well. Does not feel that she needs to be hospitalized. The patient also does not feel that she needs to be hospitalized. Social work was consulted. Patient counseled regarding signs and symptoms for which I believe and urgent re-evaluation would be necessary. Patient with good understanding of and agreement to plan and is comfortable going home at this time This document was made in part using voice recognition software. While efforts are made to proofread this document, sound alike and grammatical errors may occur. Departure - Departure Disposition: 01 Home, Self Care Clinical Impression: Grief reaction Depression Qualifiers: Depression Type: unspecified Qualified Code(s): F32.A - Depression, unspecified Condition: Good Instructions: ED Depression Follow-Up: Leah Katz MD [Primary Care Provider] - Within 1 week Comments: Please follow-up as directed by the social service assistant today. Please return if you worsen. Continue your current medications at home. Crisis Line and is available to talk to someone [email or web address] is also available to chat with someone online if you prefer. There are also many resources on this website and apps for your phone to help with your mental health You can also text the word START to [phone] to chat with someome via text. Discharge Date/Time: 10/08/21 14:03
[2021-10-08 12:31] LABS: BASOPHILS # (AUTO) 0.1 10^3/uL (0.0-0.1); BASOPHILS % (AUTO) 0.7 %; EOSINOPHILS # (AUTO) 0.1 10^3/uL (0.0-0.7); EOSINOPHILS % (AUTO) 1.3 %; HCT - HEMATOCRIT 40.3 % (37.0-47.0); HGB - HEMOGLOBIN 13.5 g/dL (12.0-16.0); LYMPHOCYTES # (AUTO) 2.8 10^3/uL (1.5-3.5); LYMPHOCYTES % (AUTO) 27.5 %; MEAN CORPUSCULAR HEMOGLOBIN 31.8 pg (27.0-31.0); MEAN CORPUSCULAR HGB CONC 33.5 g/dL (32.0-36.0); MONOCYTES # (AUTO) 0.8 10^3/uL (0.0-1.0); MONOCYTES % (AUTO) 7.5 %; NEUTROPHILS # (AUTO) 6.4 10^3/uL (1.5-6.6); NEUTROPHILS % (AUTO) 62.7 %; PLT - PLATELET COUNT 224 10^3/uL (130-450); RED BLOOD COUNT 4.24 10^6/uL (4.20-5.40); RED CELL DISTRIBUTION WIDTH 12.4 % (12.0-15.0); WHITE BLOOD COUNT 10.3 x10^3/uL (4.8-10.8)
[2021-10-08] MEDS ORDERED: diazePAM INJ 5 MG/ML SYRINGE IM STA (12:43)
[2021-10-08 12:48] LABS: ACETAMINOPHEN < 10 ug/mL (10-30); ALBUMIN 4.2 g/dL (3.2-5.5); ALBUMIN/GLOBULIN RATIO 1.3 (1.0-2.2); ALKALINE PHOSPHATASE 87 IU/L (42-121); ALT ALANINE AMINOTRANSFERASE 190 IU/L (10-60); AST ASPARTATE AMINOTRANSFERASE 242 IU/L (10-42); BILIRUBIN,TOTAL 0.7 mg/dL (0.2-1.0); BUN - BLOOD UREA NITROGEN 25 mg/dL (6-20); CALCIUM 9.3 mg/dL (8.5-10.3); CARBON DIOXIDE - CO2 23 mmol/L (21-32); CHLORIDE 101 mmol/L (101-111); ETOH - ETHANOL < 5.0 mg/dL; GFR - MDRD 56 (>89); GLUCOSE 129 mg/dL (70-100); LIPASE 75 U/L (22-51); POTASSIUM 4.2 mmol/L (3.5-5.0); SALICYLATE < 6.0 mg/dL; SODIUM 137 mmol/L (135-145); TOTAL PROTEIN 7.5 g/dL (6.7-8.2)
[2021-10-08 13:06] LABS: MUDS CUTOFF CONCENTRATIONS CUTOFF CONC BELOW:
[2021-10-08 13:10] LABS: BILIRUBIN,URINE NEGATIVE (NEGATIVE); GLUCOSE, URINE (UA) NEGATIVE (NEGATIVE); KETONES,URINE (UA) NEGATIVE (NEGATIVE); LEUKOCYTE ESTERASE, URINE TRACE (NEGATIVE); NITRITE,URINE NEGATIVE (NEGATIVE); OCCULT BLOOD,URINE SMALL (NEGATIVE); PH,URINE 5.5 PH (5.0-7.5); PROTEIN,URINE NEGATIVE (NEGATIVE); UROBILINOGEN,URINE 0.2 (NORMAL) E.U./dL (NORMAL)
[2021-10-08 13:17] LABS: CLARITY,URINE CLEAR (CLEAR)
[2021-10-08 13:19] LABS: BENZODIAZEPINES SCREEN, URINE POSITIVE (NEGATIVE); COCAINE SCREEN URINE NEGATIVE (NEGATIVE); METHAMPHETAMINES SCREEN, URINE NEGATIVE (NEGATIVE); OPIATE SCREEN, URINE POSITIVE (NEGATIVE); THC CANNABINOID SCREEN, URINE NEGATIVE (NEGATIVE)
[2021-10-08 13:20] LABS: AMPHETAMINE SCREEN,URINE NEGATIVE (NEGATIVE); BARBITURATE SCREEN,UR NEGATIVE (NEGATIVE); METHADONE SCREEN, URINE NEGATIVE (NEGATIVE); OXYCODONE SCREEN, URINE NEGATIVE (NEGATIVE); PROPOXYPHENE SCREEN, URINE NEGATIVE (NEGATIVE); TRICYCLIC ANTIDEPRESSANT,URINE NEGATIVE (NEGATIVE)
[2021-10-08 13:27] LABS: BACTERIA,URINE Few /HPF (None Seen); RBC,URINE 0-5 /HPF (0-5); SQUAMOUS EPITHELIAL CELL,UR FEW Squamous (<= Few)
== END 2021-10-08 14:03 | disposition home or self-care (01) ==
LOC: EDUNIT# → ED 11:37
DX: F43.20 Adjustment disorder, unspecified (principal); F32.A Depression, unspecified; R45.851 Suicidal ideations; I10 Essential (primary) hypertension
CPT/HCPCS: 36415; 80053; 80306; 80307; 80320; 80329; 81001; 81003; 83690; 84443; 85025; 87086; 96372; 99283